=== PATIENT | male | born 1940 | race Caucasian/White ===

== ENCOUNTER → 2019-05-12 12:13 | Outpatient (CLI) | payer MEDICARE, MEDICAID, SELFPAY ==
--- NOTE | 2019-05-12 12:33 | XR_ITS ---
PROCEDURE: XR CHEST 2V CLINICAL HISTORY: CHRONIC DIASTOLIC HEART FAILURE, DYSPNEA COMPARISON: CXR CHEST(2 VIEWS-NOT PORTABLE) from 07/20/2014 CXR CHEST(2 VIEWS-NOT PORTABLE) from 10/25/2014 FINDINGS: Unremarkable cardiovascular structures. Bipolar pacemaker is present from left subclavian approach. Calcified granuloma is present in the right lung base laterally. Chronic pleural changes are present in the left lung base. The lungs are clear without infiltrates, suspicious nodules, or pleural effusions. Degenerative change thoracic spine IMPRESSION: No change with no acute finding Dictated by: Alejandro Patiño MD 05/12/2019 12:57 Electronically signed by Alejandro Patiño MD in [place] 05/12/2019 12:57
[2019-05-12 13:39] LABS: Basophils % 0.6 % (0.1-2.0); Eosinophils # 0.2 K/mm3 (0.0-0.4); Eosinophils % 3.9 % (0.1-12.0); Hematocrit 33.6 % (42.0-52.0); Hemoglobin 9.7 g/dL (14.1-18.0); Lymphocytes # 1.6 K/mm3 (0.7-4.5); Lymphocytes % 38.8 % (10-50); Mean Corpuscular HGB Conc 28.8 g/dL (31.8-35.4); Mean Corpuscular Hemoglobin 26.3 pg (27.0-31.2); Mean Corpuscular Volume 91.3 fl (80-94); Mean Platelet Volume 7.2 fl (7.4-10.4); Monocytes # 0.2 K/mm3 (0.1-1.0); Monocytes % 5.8 % (1.7-9.3); Neutrophils # 2.1 K/mm3 (1.8-7.8); Platelet Count 201 K/mm3 (142-424); Red Blood Count 3.68 M/mm3 (4.60-6.20); Red Cell Distribution Width 15.9 % (11.5-17.5)
[2019-05-12 13:55] LABS: Alanine Aminotransferase 5 U/L (12-78); Albumin Level 3.9 gm/dL (3.4-5.0); Albumin/Globulin Ratio 1.7 (1.1-1.8); Alkaline Phosphatase 55 U/L (46-116); Anion Gap 13.1 mEq/L (5-15); Aspartate Amino Transferase 8 U/L (15-37); Bilirubin,Total 0.4 mg/dL (0.2-1.0); Blood Urea Nitrogen 27 mg/dL (7-18); Calcium 8.6 mg/dL (8.5-10.1); Carbon Dioxide 30 mmol/L (21.0-32.0); Chloride 106 mmol/L (98-107); Creatinine,Serum 1.31 mg/dL (0.70-1.30); Estimated Glomerular Filt Rate 53 ml/min (>60); GFR (African American) 64 ML/MIN (>60); Globulin 2.3 gm/dl (1.3-3.2); Glucose 96 mg/dL (74-106); Potassium 4.1 mmoL/L (3.5-5.1); Sodium 145 mmol/L (136-145); Total Protein,Serum 6.2 gm/dL (6.4-8.2)
== END ==
PROVIDERS: PCP Internal Medicine Adolescent Medicine; Visit Provider Internal Medicine Adolescent Medicine
DX: I50.32 Chronic diastolic (congestive) heart failure (principal); R06.00 Dyspnea, unspecified
CPT/HCPCS: 36415; 71046; 80053; 83880; 85025

== ENCOUNTER → 2019-05-25 09:00 | Outpatient (CLI) | payer MEDICARE, MEDICAID, SELFPAY ==
[2019-05-25 14:48] LABS: Anion Gap 11.8 mEq/L (5-15); Blood Urea Nitrogen 26 mg/dL (7-18); Carbon Dioxide 29 mmol/L (21.0-32.0); Chloride 106 mmol/L (98-107); Creatinine,Serum 1.56 mg/dL (0.70-1.30); Estimated Glomerular Filt Rate 43 ml/min (>60); GFR (African American) 52 ML/MIN (>60); Glucose 124 mg/dL (74-106); Potassium 3.8 mmoL/L (3.5-5.1); Sodium 143 mmol/L (136-145)
== END ==
PROVIDERS: PCP Internal Medicine Adolescent Medicine; Visit Provider Internal Medicine Adolescent Medicine
DX: E78.5 Hyperlipidemia, unspecified (principal); E11.9 Type 2 diabetes mellitus without complications; I63.50 Cerebral infarction due to unspecified occlusion or stenosis of unspecified cerebral artery
CPT/HCPCS: 36415; 80048

== ENCOUNTER → 2019-06-29 08:58 | Outpatient (CLI) | payer MEDICARE, MEDICAID, SELFPAY ==
[2019-06-29 13:58] LABS: Anion Gap 11.2 mEq/L (5-15); Blood Urea Nitrogen 34 mg/dL (7-18); Calcium 8.8 mg/dL (8.5-10.1); Carbon Dioxide 28 mmol/L (21.0-32.0); Chloride 108 mmol/L (98-107); Estimated Glomerular Filt Rate 34 ml/min (>60); GFR (African American) 42 ML/MIN (>60); Glucose 120 mg/dL (74-106); Potassium 4.2 mmoL/L (3.5-5.1); Sodium 143 mmol/L (136-145)
== END ==
PROVIDERS: PCP Internal Medicine Adolescent Medicine; Visit Provider Internal Medicine Adolescent Medicine
DX: I50.32 Chronic diastolic (congestive) heart failure (principal)
CPT/HCPCS: 36415; 80048

== ENCOUNTER → 2019-07-13 09:16 | Outpatient (CLI) | payer MEDICARE, MEDICAID, SELFPAY ==
[2019-07-13 14:17] LABS: Anion Gap 16.2 mEq/L (5-15); Blood Urea Nitrogen 35 mg/dL (7-18); Calcium 8.8 mg/dL (8.5-10.1); Carbon Dioxide 26 mmol/L (21.0-32.0); Chloride 106 mmol/L (98-107); Creatinine,Serum 1.82 mg/dL (0.70-1.30); Estimated Glomerular Filt Rate 36 ml/min (>60); GFR (African American) 44 ML/MIN (>60); Glucose 126 mg/dL (74-106); Potassium 5.2 mmoL/L (3.5-5.1); Sodium 143 mmol/L (136-145)
== END ==
PROVIDERS: PCP Internal Medicine Adolescent Medicine; Visit Provider Internal Medicine Adolescent Medicine
DX: I50.32 Chronic diastolic (congestive) heart failure (principal)
CPT/HCPCS: 36415; 80048

== ENCOUNTER → 2019-08-25 13:47 | Outpatient (CLI) | payer MEDICARE, MEDICAID, SELFPAY ==
--- NOTE | 2019-08-25 13:53 | XR_ITS ---
PROCEDURE: XR FEMUR LT 2V CLINICAL INDICATION: LT HIP PAIN Prior dislocations COMPARISON: No exams were available for comparison FINDINGS: No fracture or dislocation. No lytic or blastic change. There is normal mineralization. There is mild osteoarthritis at the hip joint and the patellofemoral and medial compartment joint space at the knee. Chondrocalcinosis is seen at medial and lateral compartment joint spaces. Other findings:None. IMPRESSION: No acute findings. Osteoarthritis. Dictated by: Eber Villalobos 08/25/2019 15:20 Electronically signed by Eber Villalobos in [place] 08/25/2019 15:20
--- NOTE | 2019-08-25 13:53 | XR_ITS ---
PROCEDURE: XR HIP LT 2-3V W/PELVIS CLINICAL INDICATION: LT HIP PAIN COMPARISON: No exams were available for comparison FINDINGS: There is no acute fracture or dislocation. Mild osteoarthritis is seen at both hip joint spaces. There is sclerosis of both sacroiliac joints without definite ankylosis. Sacroiliitis is suspected. A nonspecific 9 millimeter sclerotic focus is seen at the left symphysis pubis. A benign bone island is favored over a solitary sclerotic metastasis. Degenerative disc disease is noted L4-5 and L5-S1. IMPRESSION: Multiple degenerative findings with no acute bone pathology. Dictated by: Eber Villalobos 08/25/2019 15:23 Electronically signed by Eber Villalobos in [place] 08/25/2019 15:23
== END ==
PROVIDERS: PCP Internal Medicine Adolescent Medicine; Visit Provider Internal Medicine Adolescent Medicine
DX: M25.552 Pain in left hip (principal)
CPT/HCPCS: 73502; 73552

== ENCOUNTER → 2019-12-01 10:09 | Outpatient (CLI) | payer MEDICARE, MEDICAID, SELFPAY ==
[2019-12-01 14:21] LABS: Anion Gap 10.2 mEq/L (5-15); Blood Urea Nitrogen 30 mg/dl (9-20); Carbon Dioxide 30 mmol/L (22.0-30.0); Chloride 103 mmol/L (98-107); Estimated Glomerular Filt Rate 45 ml/min (>60); GFR (African American) 55 ML/MIN (>60); Glucose 97 mg/dl (74-100); Potassium 4.2 mmoL/L (3.5-5.1); Sodium 139 mmol/L (136-145)
[2019-12-01 14:26] LABS: Hemoglobin A1C 5.7 % (4.0-6.0)
== END ==
PROVIDERS: Visit Provider Internal Medicine Adolescent Medicine
DX: N18.3 Chronic kidney disease, stage 3 (moderate) (principal); E11.9 Type 2 diabetes mellitus without complications; Z79.84 Long term (current) use of oral hypoglycemic drugs
CPT/HCPCS: 36415; 80048; 83036

== ENCOUNTER → 2020-02-12 10:52 | Outpatient (CLI) | payer MEDICARE, MEDICAID, SELFPAY ==
--- NOTE | 2020-02-12 | CA_ITS ---
APPROVED REPORT EXAM: Comprehensive 2D, Doppler, and color-flow Echocardiogram Check Processing Clerk: Marge Thacker CRT Ht: 6 ft 0 in Wt: 260lbs BSA: 2.38 BP: 125/67 mmHg Indications: COPD, Diabetes, Palpitations, Hyperlipidemia, GERD, PACER 2D Dimensions LVOT 2.07 cm (M/F) 1.5-2.5 M-Mode Dimensions RVDd 2.88 cm (0.9-2.6) LVDd 5.80 cm (3.5-5.7) LVDs 4.10 cm (3.5-5.7) IVSd 1.44 cm (0.6-1.1) PWd 0.80 cm (0.6-1.1) EF (Teich) 55.50% FS 29.30% EDV (Teich) 166.60 mL ESV (Teich) 74.20 mL LV Diastology E/A Ratio 0.75 Mitral Valve MV A Velocity 108.00 (40-130 cm/s) Left Ventricle Left atrium is moderately enlarged, left ventricle is normal size, mild concentric left ventricular hypertrophy, visually estimated ejection fraction 50% with no regional wall motion abnormality. Grade 1 diastolic dysfunction seen with tissue Doppler evidence of raise left atrial pressure. Right Ventricle Right atrium is moderately enlarged, right ventricle is mildly dilated with normal contractility, there is a pacemaker lead seen the right ventricle. Aortic Valve Aortic valve is thickened and calcified leaflet chordae display good mobility, there is no aortic stenosis or aortic insufficiency. Mitral Valve Mitral valve has mitral annular calcification, leaflets are minimally thickened, there is no mitral stenosis, there is mitral regurgitation present which is likely in moderate range. Tricuspid Valve Tricuspid valve is grossly normal, there is mild tricuspid regurgitation, Pulmonic Valve Pulmonic valve is minimally thickened and fibrosed. There is mild pulmonic insufficiency. Great Vessels Aortic root is normal size. Pericardium Trivial pericardial effusion noted. Conclusion 1. Moderate biatrial alignment, normal left ventricular size, mild concentric left ventricular hypertrophy, visually estimated ejection fraction 50% with no regional wall motion abnormality, grade 1 diastolic dysfunction seen without tissue Doppler evidence of raise left atrial pressure. 2. Moderate mitral and mild tricuspid regurgitation. 3. Trivial pericardial effusion noted Electronically signed by : Jaspal Rowan, 02/12/2020 13:30:55
== END ==
PROVIDERS: PCP Internal Medicine Adolescent Medicine; Visit Provider Internal Medicine Adolescent Medicine
DX: I50.32 Chronic diastolic (congestive) heart failure (principal)
CPT/HCPCS: 93306

== ENCOUNTER → 2020-06-07 11:17 | Outpatient (CLI) | payer MEDICARE, MEDICAID, SELFPAY ==
--- NOTE | 2020-06-07 11:22 | XR_ITS ---
PROCEDURE: XR HIP LT 2-3V W/PELVIS CLINICAL INDICATION: left hip pain COMPARISON: CR XR HIP LT 2-3V W/PELVIS from 08/25/2019 FINDINGS: No fracture or dislocation is evident. There is asymmetrical joint space narrowing of both hip joints. There is disc space narrowing with marginal osteophytic spurring at the L4-5 level. The SI joints and symphysis pubis appear normal. IMPRESSION: Mild osteoarthritic change of both hips along with moderate degenerate disc disease L4-5 Dictated by: Dr. Doron Oneal MD 06/07/2020 13:05 Dr. Doron Oneal MD in [place] 06/07/2020 13:05
== END ==
PROVIDERS: PCP Internal Medicine Adolescent Medicine; Visit Provider Orthopaedic Surgery
DX: M16.12 Unilateral primary osteoarthritis, left hip (principal)
CPT/HCPCS: 73502

== ENCOUNTER → 2021-02-23 08:57 | Outpatient (CLI) | payer MEDICARE, MEDICAID, SELFPAY ==
[2021-02-23 14:08] LABS: Chloride 104 mmol/L (98-107); Sodium 144 mmol/L (136-145)
[2021-02-23 14:11] LABS: Blood Urea Nitrogen 32 mg/dl (9-20); Estimated Glomerular Filt Rate 42 ml/min (>60); GFR (African American) 51 ML/MIN (>60)
[2021-02-23 14:12] LABS: Calcium 8.7 mg/dl (8.4-10.2); Carbon Dioxide 31 mmol/L (22.0-30.0); Glucose 112 mg/dl (74-100)
== END ==
PROVIDERS: Visit Provider Internal Medicine Adolescent Medicine
DX: I50.32 Chronic diastolic (congestive) heart failure (principal)
CPT/HCPCS: 36415; 80048

== ENCOUNTER → 2021-08-17 10:14 | Outpatient (CLI) | payer MEDICARE, MEDICAID, SELFPAY ==
[2021-08-17 10:50] LABS: Basophils % 0.8 % (0.1-2.0); Eosinophils # 0.1 K/mm3 (0.0-0.4); Eosinophils % 1.6 % (0.1-12.0); Hematocrit 30.5 % (42.0-52.0); Hemoglobin 9.4 g/dL (14.1-18.0); Lymphocytes % 45.5 % (10-50); Mean Corpuscular HGB Conc 30.9 g/dL (31.8-35.4); Mean Corpuscular Hemoglobin 27.3 pg (27.0-31.2); Mean Corpuscular Volume 88.6 fl (80-94); Mean Platelet Volume 8.3 fl (7.4-10.4); Monocytes # 0.2 K/mm3 (0.1-1.0); Monocytes % 4.3 % (1.7-9.3); Neutrophils # 2.1 K/mm3 (1.8-7.8); Neutrophils % 47.8 % (37.0-80.0); Platelet Count 200 K/mm3 (142-424); Red Blood Count 3.45 M/mm3 (4.60-6.20); Red Cell Distribution Width 16.1 % (11.5-17.5); White Blood Count 4.4 K/mm3 (4.8-10.8)
[2021-08-17 11:06] LABS: Hemoglobin A1C 5.9 % (4.0-6.0)
[2021-08-17 11:18] LABS: Alanine Aminotransferase 9 U/L (12-78); Albumin Level 4.3 g/dl (3.5-5.0); Albumin/Globulin Ratio 2.3 (1.1-1.8); Alkaline Phosphatase 45 U/L (38-126); Anion Gap 9.7 mEq/L (5-15); Aspartate Amino Transferase 23 U/L (17-59); Bilirubin,Total 0.4 mg/dl (0.2-1.3); Blood Urea Nitrogen 41 mg/dl (9-20); Calcium 9.3 mg/dl (8.4-10.2); Carbon Dioxide 34 mmol/L (22.0-30.0); Chloride 102 mmol/L (98-107); Chol/HDL Ratio 2.8 (1-3.5); Cholesterol 109 mg/dl (140-200); Estimated Glomerular Filt Rate 29 ml/min (>60); GFR (African American) 35 ML/MIN (>60); Globulin 1.9 g/dL (1.3-3.2); Glucose 101 mg/dl (74-100); HDL Cholesterol 39 mg/dl (40-60); Potassium 4.7 mmoL/L (3.5-5.1); Sodium 141 mmol/L (136-145); Total Protein,Serum 6.2 g/dl (6.3-8.2); Triglycerides 75 mg/dl (30-150); VLDL Cholesterol 15 mg/dL (0-40)
[2021-08-17 11:29] LABS: Direct LDL Cholesterol 55.07 mg/dL (100-129)
[2021-08-17 11:34] LABS: Amphetamine/Metha Screen,Urine Negative ng/ml (<1000)
[2021-08-17 11:35] LABS: Barbiturates Screen,Urine Negative ng/ml (<200); Benzodiazepines Screen,Urine Negative ng/ml (<200)
[2021-08-17 11:36] LABS: Cannabinoid Screen,Urine Negative ng/ml (<50); Cocaine Screen,Urine Negative ng/ml (<300)
[2021-08-17 11:37] LABS: Methadone Screen,Urine Negative ng/ml (<300)
[2021-08-17 11:38] LABS: Opiate Screen,Urine Positive ng/ml (<300); Phencyclidine Screen,Urine Negative ng/ml (<25)
[2021-08-17 12:08] LABS: Vitamin B12 363 pg/mL (239-931)
== END ==
PROVIDERS: Visit Provider Internal Medicine Adolescent Medicine
DX: E11.42 Type 2 diabetes mellitus with diabetic polyneuropathy (principal); M17.0 Bilateral primary osteoarthritis of knee; Z79.84 Long term (current) use of oral hypoglycemic drugs
CPT/HCPCS: 36415; 80053; 80061; 80305; 82607; 83036; 85025

== ENCOUNTER → 2022-02-14 10:09 | Outpatient (CLI) | payer MEDICARE, MEDICAID, SELFPAY ==
[2022-02-14 10:18] LABS: Microscopic, Urine URINE MICROSCOPIC (MICROSCOPIC)
[2022-02-14 10:42] LABS: Appearance,Urine CLEAR (Clear); Bilirubin,Urine Negative (Negative); Blood, Urine Negative (Negative); Color,Urine YELLOW (Yellow); Glucose,Urine (UA) Negative (Negative); Ketones,Urine Negative (Negative); Leukocyte Esterase,Urine Negative (Negative); Nitrate,Urine Negative (Negative); PH,Urine 5.5 (5.0-8.5); Protein,Urine Negative (Negative); Urobilinogen,Urine 0.2 EU/dl (0.2)
[2022-02-14 10:43] LABS: Basophils % 0.6 % (0.1-2.0); Eosinophils # 0.1 K/mm3 (0.0-0.4); Eosinophils % 1.4 % (0.1-12.0); Hemoglobin 8.7 g/dL (14.1-18.0); Lymphocytes # 2.3 K/mm3 (0.7-4.5); Lymphocytes % 47.3 % (10-50); Mean Corpuscular Hemoglobin 26.2 pg (27.0-31.2); Mean Corpuscular Volume 87.2 fl (80-94); Mean Platelet Volume 8.1 fl (7.4-10.4); Monocytes # 0.2 K/mm3 (0.1-1.0); Monocytes % 4.7 % (1.7-9.3); Neutrophils # 2.3 K/mm3 (1.8-7.8); Neutrophils % 46.1 % (37.0-80.0); Platelet Count 250 K/mm3 (142-424); Red Blood Count 3.32 M/mm3 (4.60-6.20); Red Cell Distribution Width 16.1 % (11.5-17.5); White Blood Count 4.9 K/mm3 (4.8-10.8)
[2022-02-14 10:51] LABS: Creatinine,Urine Random 92 mg/dL (Not Estab.)
[2022-02-14 11:04] LABS: Albumin Level 4.1 g/dl (3.5-5.0); Anion Gap 12.5 mEq/L (5-15); Blood Urea Nitrogen 43 mg/dl (9-20); Calcium 9.1 mg/dl (8.4-10.2); Carbon Dioxide 26 mmol/L (22.0-30.0); Chloride 109 mmol/L (98-107); Estimated Glomerular Filt Rate 27 ml/min (>60); GFR (African American) 33 ML/MIN (>60); Glucose 95 mg/dl (74-100); Phosphorous 4.1 mg/dl (2.5-4.5); Potassium 4.5 mmoL/L (3.5-5.1); Sodium 143 mmol/L (136-145)
[2022-02-14 11:16] LABS: Intact Parathyroid Hormone 76.6 pg/mL (7.5-53.5)
[2022-02-14 11:20] LABS: 25-OH Vitamin D, Total 64.5 ng/mL (30-100)
== END ==
PROVIDERS: Internal Medicine Nephrology; PCP Internal Medicine Adolescent Medicine
DX: N18.4 Chronic kidney disease, stage 4 (severe) (principal); E55.9 Vitamin D deficiency, unspecified
CPT/HCPCS: 36415; 80069; 81001; 82306; 82570; 83970; 84155; 85025

== ENCOUNTER → 2022-02-19 10:45 | Outpatient (POV) | payer MEDICARE, MEDICAID, SELFPAY | PROVIDERS: Visit Provider Internal Medicine Nephrology | DX: Z00.00 Encounter for general adult medical examination without abnormal findings (principal) ==

== ENCOUNTER 2022-03-24 19:29 | Emergency (ER) | payer MEDICARE, MEDICAID, SELFPAY ==
[2022-03-24 20:15] VITALS: BP 158/81; PULSE 68; RESP 19; TEMP 37.1; O2SAT 96; BMI 36.7
--- NOTE | 2022-03-24 20:42 | HMH.EDUTC ---
[facility] [place] Disposition Clinical Impression: Exposure to COVID-19 virus, Upper respiratory infection, viral Disposition: Home, Self-Care Condition on Discharge: Good Instructions: DI for Viral Upper Respiratory Infection -- Adult, DI for COVID-19 (Suspected or Confirmed ) Additional Instructions: covid swab was sent to lab, call tomorrow for results. self isolate until test results are known to be negative No sign of a bacterial infection. Likely viral. Viruses can take 7-14 days to run their course. Nasal saline and bulb syringe or nose Evelin to remove nasal drainage to help with nasal congestion. Hard to eat, drink, sleep with nasal congestion so important to keep this cleaned out. Monitor temp. Tylenol or Motrin as needed for pain or fever Encourage fluids, water, Gatorade, Powerade, Pedialyte if /toddler/child Warm salt water gargles Warm fluids Sore throat lozenges Sleep elevated Humidifier/vaporizer Follow-up immediately for new or worsening symptoms or no noticeable improvement over the next 48-72 hours. Referrals: Melvin Navas MD [Primary Care Provider] - Time of Disposition: 20:44 Medical Decision Making - Sina Inquiry Pt receiving controlled substance: No Vital Signs: 03/24/22 20:15 Temperature 98.8 F Temperature Source Oral Pulse Rate [Right Brachial] 68 Respiratory Rate 19 Blood Pressure [Right Arm] 158/81 H Blood Pressure Mean [Right Arm] 106 Blood Pressure Source [Right Arm] Automatic Cuff Blood Pressure Position [Right Arm] Sitting 02 Sat by Pulse Oximetry 96 Oxygen Delivery Method Room Air Orders (Tests/Meds): ORDERS Category Date Time Status Covid-19 Nasal PCR ([facility]) Routine Lab 03/24/22 20:02 Received [facility] [place] HPI - General Chief complaint: Urgent [facility] Stated complaint: exposed covid,runny nose cough Time Seen by Provider: 03/24/22 20:42 Mode of Arrival: Ambulatory Source of Information: Patient Limitations: No Limitations Description of Symptoms (Recalled from Triage Doc. by RN): PATIENT C/O BODY ACHES, COUGH AND RUNNY NOSE. RECENTLY EXPOSED TO COVID HEENT Symptoms (Recalled from RN notes): Yes Resp Symptoms (Recalled from RN notes): Yes Skin Symptoms (Recalled from RN notes): No MS Symptoms (Recalled from RN notes): No Functional Status (Recalled from RN notes): WNL - History of Present Illness Provider Complaint: 81 yr old male presnets for cough,nasal drainage and congestion. has been exposed to covid - Related Data Home Medications Medication Instructions Recorded Confirmed aspirin 81 mg tablet,delayed 81 mg PO DAILY 09/09/19 06/07/20 release buspirone 15 mg tablet 15 mg PO BID 09/09/19 06/07/20 calcium carbonate 600 mg-vitamin cap PO 09/09/19 06/07/20 D3 5 mcg (200 unit) capsule doxazosin 2 mg tablet 2 mg PO DAILY 09/09/19 06/07/20 fluticasone 250 mcg-salmeterol 50 1 inh INHALATION BID 09/09/19 06/07/20 mcg/dose blistr powdr for inhalation furosemide 40 mg tablet 40 mg PO DAILY 09/09/19 06/07/20 gabapentin 100 mg capsule 100 mg PO DAILY 09/09/19 06/07/20 hydrocodone 7.5 mg-acetaminophen 1 tab PO Q6H PRN 09/09/19 06/07/20 325 mg tablet lancets See Rx Instructions .ROUTE 09/09/19 06/07/20 .MEDSUPPLY #50 each lisinopril 40 mg tablet 40 mg PO DAILY 09/09/19 06/07/20 lovastatin 40 mg tablet 40 mg PO DAILY 09/09/19 06/07/20 metformin 1,000 mg tablet 1,000 mg PO BID 09/09/19 06/07/20 metoprolol tartrate 25 mg tablet 25 mg PO DAILY 09/09/19 06/07/20 pantoprazole 20 mg tablet,delayed 20 mg PO DAILY 09/09/19 06/07/20 release polyethylene glycol 3350 17 17 g PO DAILY 09/09/19 06/07/20 gram/dose oral powder ranitidine HCl 150 mg tablet 150 mg PO DAILY 09/09/19 06/07/20 rivaroxaban 20 mg tablet 20 mg PO DAILY 09/09/19 06/07/20 verapamil 240 mg 24 hr 240 mg PO DAILY 09/09/19 06/07/20 capsule,extended release bisoprolol fumarate 5 mg tablet 5 mg PO DAILY 06/07/20 06/07/20 Allergies Allergy/AdvReac Type Severity Reaction S
[2022-03-24 20:46] VITALS: BP 158/81; PULSE 68; RESP 19; TEMP 37.1; O2SAT 96
== END 2022-03-24 20:52 | disposition home or self-care (01) ==
PROVIDERS: Emergency Provider Nurse Practitioner Family; PCP Internal Medicine Adolescent Medicine
DX: R09.89 Other specified symptoms and signs involving the circulatory and respiratory systems (principal); R05.9 Cough, unspecified; U07.1 COVID-19
CPT/HCPCS: 99212; C9803; G0463; U0003; U0005

== ENCOUNTER → 2022-04-10 12:36 | Outpatient (CLI) | payer MEDICARE, MEDICAID, SELFPAY ==
[2022-04-10 14:04] LABS: Basophils % 0.5 % (0.1-2.0); Eosinophils # 0.1 K/mm3 (0.0-0.4); Eosinophils % 1.3 % (0.1-12.0); Hematocrit 27.3 % (42.0-52.0); Lymphocytes # 2.3 K/mm3 (0.7-4.5); Lymphocytes % 52.3 % (10-50); Mean Corpuscular HGB Conc 29.3 g/dL (31.8-35.4); Mean Corpuscular Hemoglobin 24.6 pg (27.0-31.2); Mean Corpuscular Volume 83.8 fl (80-94); Mean Platelet Volume 7.7 fl (7.4-10.4); Monocytes # 0.2 K/mm3 (0.1-1.0); Monocytes % 4.6 % (1.7-9.3); Neutrophils # 1.8 K/mm3 (1.8-7.8); Neutrophils % 41.3 % (37.0-80.0); Platelet Count 231 K/mm3 (142-424); Red Blood Count 3.26 M/mm3 (4.60-6.20); Red Cell Distribution Width 16.8 % (11.5-17.5); White Blood Count 4.4 K/mm3 (4.8-10.8)
[2022-04-10 14:08] LABS: MANUAL DIFFERENTIAL MANUAL DIFFERENTIAL (MANUAL DIFF)
[2022-04-10 14:21] LABS: Iron 18 ug/dL (49-181)
[2022-04-10 14:55] LABS: Total Iron Binding Capacity 278 ug/dL (261-462)
[2022-04-10 14:57] LABS: Ferritin 24.2 ng/ml (17.9-464)
[2022-04-10 16:26] LABS: Eosinophils % 2 % (0-3); Lymphocytes % 49 % (10-50); Monocytes % 4 % (2-9); Neutrophils % 43 % (42-76); Total Cells Counted 100
[2022-04-10 16:27] LABS: Hypochromasia 2+; Ovalocytes 1+; Platelet Estimate Normal
[2022-04-10 17:14] LABS: Albumin Level 3.9 g/dl (3.5-5.0); Chloride 108 mmol/L (98-107); Potassium 4.8 mmoL/L (3.5-5.1); Sodium 142 mmol/L (136-145)
[2022-04-10 17:17] LABS: Anion Gap 10.8 mEq/L (5-15); Blood Urea Nitrogen 32 mg/dl (9-20); Carbon Dioxide 28 mmol/L (22.0-30.0); Estimated Glomerular Filt Rate 29 ml/min (>60); GFR (African American) 35 ML/MIN (>60); Phosphorous 3.7 mg/dl (2.5-4.5)
[2022-04-10 17:18] LABS: Glucose 124 mg/dl (74-100)
[2022-04-10 17:49] LABS: Thyroid Stimulating Hormone 1.39 uIU/mL (0.465-4.68)
[2022-04-12 18:08] LABS: Albumin 3.7 g/dL (2.9-4.4); Alpha-1-Globulin 0.2 g/dL (0.0-0.4); Alpha-2-Globulin 0.7 g/dL (0.4-1.0); Gamma Globulin 0.5 g/dL (0.4-1.8); Protein, Total 5.9 g/dL (6.0-8.5)
[2022-04-18 10:02] LABS: Free Kappa Lt Chains 24.4; Free Lambda Lt Chains 17.8
== END ==
PROVIDERS: PCP Internal Medicine Adolescent Medicine; Visit Provider Internal Medicine Nephrology
DX: N18.4 Chronic kidney disease, stage 4 (severe) (principal); D64.9 Anemia, unspecified; R80.9 Proteinuria, unspecified; N25.0 Renal osteodystrophy; I10 Essential (primary) hypertension
CPT/HCPCS: 36415; 80069; 82728; 83540; 83550; 83883; 84155; 84165; 84443; 85007; 85025

== ENCOUNTER → 2022-04-23 10:19 | Outpatient (POV) | payer MEDICARE, MEDICAID, SELFPAY | PROVIDERS: Visit Provider Internal Medicine Nephrology | DX: Z00.00 Encounter for general adult medical examination without abnormal findings (principal) ==

== ENCOUNTER → 2022-04-23 11:14 | Outpatient (CLI) | payer MEDICARE, MEDICAID, SELFPAY ==
--- NOTE | 2022-04-23 11:23 | XR_ITS ---
FINAL REPORT CLINICAL HISTORY: DYSPNEA COMPARISON: 05/12/2019 FINDINGS: 2 views of the chest were obtained . The heart is normal in size. In left-sided pacemaker is in place. The mediastinum is within normal limits. The lungs are clear. There is no pneumothorax. Osseous structures are unremarkable. IMPRESSION: No acute cardiopulmonary process. Reviewed, Interpreted and Dictated by Wesly Gutiérrez MD Transcribed by Deysi Major Authenticated and [facility]
== END ==
PROVIDERS: PCP Internal Medicine Adolescent Medicine; Visit Provider Internal Medicine Nephrology
DX: R06.00 Dyspnea, unspecified (principal)
CPT/HCPCS: 71046

== ENCOUNTER 2022-05-01 10:23 | Emergency (ER) | payer MEDICARE, MEDICAID, SELFPAY ==
[2022-05-01] VITALS (7 sets, daily range): BP systolic 122–147; BP diastolic 48–72; PULSE 60–67; RESP 16–20; TEMP 36.6; O2SAT 94–98; BMI 33.6
--- NOTE | 2022-05-01 10:43 | CT_ITS ---
FINAL REPORT TECHNIQUE: Noncontrast CT exam of the abdomen and pelvis. This study was performed with techniques to keep radiation doses as low as reasonably achievable (ALARA). Individualized dose reduction techniques using automated exposure control or adjustment of mA and/or kV according to the patient''s size were employed. CLINICAL HISTORY: flank pain, urinary retention FINDINGS: CT ABDOMEN & PELVIS W/O CONTRAST Abdomen: Lung bases are clear. The pancreas and adrenal glands have a normal CT appearance in their limited unenhanced state. There is cirrhotic appearance of the liver with moderate splenomegaly. There is moderate bilateral hydronephrosis and hydroureter. There is renal atrophy. There are multiple renal lesions some of which do not fulfill criteria of simple cysts. There is fecal impaction. Pelvis: The urinary bladder is severely distended and the ureters are dilated to the level of the bladder. No distal ureteral stones are seen. The prostate is unremarkable. The appendix is not visualized. IMPRESSION: Moderate bilateral hydronephrosis and hydroureter with obstruction likely related to severely distended bladder. Cirrhosis with evidence of portal hypertension. Reviewed, Interpreted and Dictated by Adelaida Solorzano MD Transcribed by Carolyn Gautam Authenticated and [facility]
--- NOTE | 2022-05-01 10:43 | HMH.EDGENADL ---
Discharge Plan Disposition Patient Disposition: Home, Self-Care Condition: Good Prescriptions Prescriptions: New cephalexin 500 mg capsule 500 mg PO BID 7 Days Qty: 14 0RF No Action aspirin [Adult Aspirin Regimen] 81 mg tablet,delayed release (DR/EC) 81 mg PO DAILY polyethylene glycol 3350 [Miralax] 17 gram/dose powder 17 g PO DAILY ranitidine HCl 150 mg tablet 150 mg PO DAILY Calcium 600 + D(3) 600 mg calcium- 200 unit capsule PO fluticasone propion-salmeterol [Advair Diskus] 250-50 mcg/dose blister with device 1 inh INHALATION BID (DME) lancets [Accu-Chek Softclix Lancets] Misc See Rx Instructions .ROUTE .MEDSUPPLY Qty: 50 Rx Instructions: As directed metformin 1,000 mg tablet 1,000 mg PO BID furosemide 40 mg tablet 40 mg PO DAILY lovastatin 40 mg tablet 40 mg PO DAILY pantoprazole 20 mg tablet,delayed release (DR/EC) 20 mg PO DAILY metoprolol tartrate 25 mg tablet 25 mg PO DAILY doxazosin 2 mg tablet 2 mg PO DAILY Xarelto 20 mg tablet 20 mg PO DAILY Rx Instructions: must administer with evening meal buspirone 15 mg tablet 15 mg PO BID verapamil 240 mg capsule,ext rel. pellets 24 hr 240 mg PO DAILY lisinopril 40 mg tablet 40 mg PO DAILY hydrocodone-acetaminophen 7.5-325 mg tablet 1 tab PO Q6H PRN gabapentin 100 mg capsule 100 mg PO DAILY bisoprolol fumarate 5 mg tablet 5 mg PO DAILY Referrals Follow up/Referrals: Melvin Navas MD [Primary Care Provider] - See instructions Travis Matias MD [Staff Physician] - See instructions Clinical Impressions Clinical Impression: Acute UTI Instructions Patient Instructions: How to Care for Your Torres Catheter -- Male Discharge ED Provider: Anthony Rudd General Adult HPI General Chief complaint: PAIN Stated complaint: Trouble urinating with pain Time Seen by Provider: 05/01/22 10:44 Mode of Arrival: Ambulatory Source of Information: Patient Limitations: No Limitations Description of Symptoms (Recalled from ER Triage Doc. by RN): to ed per pvt car with c/o burning with urination, freg, urgency starting saturday. pt denies fever, chills, nausea, vomiting. History of Present Illness HPI narrative: This is a 81-year-old male presented to the emergency department with some increased urinary frequency and urgency. Patient is also had some burning with urination. This has been going on for the last 3 days. Patient states that he has had some suprapubic abdominal cramping as well. Denies any hematuria or discharge. No testicular pain. Is not having any nausea, vomiting or diarrhea. No fevers or chills. No headache or change in vision. No focal weakness. No chest pain or shortness of breath. Related Data Home Medications Medication Instructions Recorded Confirmed aspirin 81 mg tablet,delayed 81 mg PO DAILY 09/09/19 06/07/20 release (Adult Aspirin Regimen) buspirone 15 mg tablet 15 mg PO BID 09/09/19 06/07/20 calcium carbonate 600 mg-vitamin cap PO 09/09/19 06/07/20 D3 5 mcg (200 unit) capsule (Calcium 600 + D(3)) doxazosin 2 mg tablet 2 mg PO DAILY 09/09/19 06/07/20 fluticasone 250 mcg-salmeterol 50 1 inh inhalation BID 09/09/19 06/07/20 mcg/dose blistr powdr for inhalation (Advair Diskus) furosemide 40 mg tablet 40 mg PO DAILY 09/09/19 06/07/20 gabapentin 100 mg capsule 100 mg PO DAILY 09/09/19 06/07/20 hydrocodone 7.5 mg-acetaminophen 1 tab PO Q6H PRN 09/09/19 06/07/20 325 mg tablet lancets (Accu-Chek Softclix #50 ea 09/09/19 06/07/20 Lancets) lisinopril 40 mg tablet 40 mg PO DAILY 09/09/19 06/07/20 lovastatin 40 mg tablet 40 mg PO DAILY 09/09/19 06/07/20 metformin 1,000 mg tablet 1,000 mg PO BID 09/09/19 06/07/20 metoprolol tartrate 25 mg tablet 25 mg PO DAILY 09/09/19 06/07/20 pantoprazole 20 mg tablet,delayed 20 mg PO DAILY 09/09/19 06/07/20 release polyethylene glycol 33
[2022-05-01 11:01] LABS: Basophils % 0.4 % (0.1-2.0); Eosinophils % 0.3 % (0.1-12.0); Hematocrit 26.1 % (42.0-52.0); Hemoglobin 7.6 g/dL (14.1-18.0); Lymphocytes # 1.7 K/mm3 (0.7-4.5); Lymphocytes % 28.9 % (10-50); Mean Corpuscular HGB Conc 29.2 g/dL (31.8-35.4); Mean Corpuscular Hemoglobin 24.1 pg (27.0-31.2); Mean Corpuscular Volume 82.5 fl (80-94); Monocytes # 0.3 K/mm3 (0.1-1.0); Monocytes % 5.8 % (1.7-9.3); Neutrophils # 3.8 K/mm3 (1.8-7.8); Neutrophils % 64.6 % (37.0-80.0); Platelet Count 275 K/mm3 (142-424); Red Blood Count 3.17 M/mm3 (4.60-6.20); Red Cell Distribution Width 17.3 % (11.5-17.5); White Blood Count 5.8 K/mm3 (4.8-10.8)
[2022-05-01 11:14] LABS: Alanine Aminotransferase 11 U/L (12-78); Albumin Level 3.6 g/dl (3.5-5.0); Albumin/Globulin Ratio 1.5 (1.1-1.8); Alkaline Phosphatase 53 U/L (38-126); Anion Gap 14.7 mEq/L (5-15); Aspartate Amino Transferase 16 U/L (17-59); Blood Urea Nitrogen 46 mg/dl (9-20); Calcium 8.4 mg/dl (8.4-10.2); Carbon Dioxide 28 mmol/L (22.0-30.0); Chloride 104 mmol/L (98-107); Creatinine Clearance Estimated 34 mL/min (50-200); Estimated Glomerular Filt Rate 23 ml/min (>60); GFR (African American) 28 ML/MIN (>60); Globulin 2.4 g/dL (1.3-3.2); Glucose 104 mg/dl (74-100); Lipase 107 U/L (23-300); Potassium 4.7 mmoL/L (3.5-5.1); Sodium 142 mmol/L (136-145)
[2022-05-01 11:15] LABS: Microscopic, Urine URINE MICROSCOPIC (MICROSCOPIC)
[2022-05-01 11:16] LABS: Appearance,Urine CLEAR (Clear); Bilirubin,Urine Negative (Negative); Blood, Urine 3+ (Negative); Color,Urine YELLOW (Yellow); Glucose,Urine (UA) Negative (Negative); Ketones,Urine Negative (Negative); Leukocyte Esterase,Urine 2+ (Negative); Nitrate,Urine Negative (Negative); Protein,Urine 2+ (Negative); Specific Gravity, Urine >= 1.030 (1.005-1.030); Urobilinogen,Urine 0.2 EU/dl (0.2)
--- NOTE | 2022-05-01 11:22 | PC.NURSE ---
pt gone to radiology
[2022-05-01 11:27] LABS: Bilirubin,Total < 0.1 mg/dl (0.2-1.3)
--- NOTE | 2022-05-01 11:29 | PC.NURSE ---
BACK FROM CT
[2022-05-01 11:53] LABS: Bacteria,Urine 2+ /lpf; Squamous Epithelial Cell,Urine Occasional #/hpf (0-5)
--- NOTE | 2022-05-01 13:12 | PC.NURSE ---
pt and updated on plan of care
--- NOTE | 2022-05-01 14:10 | PC.NURSE ---
urine output after sepulveda placed 2400 cc, sepulveda leg bag attached to pt leg, some blood tinge urine noted upon DC home.
[2022-05-03 11:25] LABS: POC Glucose,Bedside 101 (70-110)
[2022-05-04 10:57] LABS: POC Glucose,Bedside 111 (70-110)
== END 2022-05-01 14:48 | disposition home or self-care (01) ==
PROVIDERS: Emergency Provider Emergency Medicine; PCP Internal Medicine Adolescent Medicine
DX: N39.0 Urinary tract infection, site not specified (principal)
CPT/HCPCS: 51702; 74176; 80053; 81001; 82962; 83690; 85025; 87086; 96365; 99284; J0696

== ENCOUNTER 2022-05-02 09:53 | Observation (INO) | payer MEDICARE, MEDICAID, SELFPAY ==
[2022-05-02] VITALS (18 sets, daily range): BP systolic 106–138; BP diastolic 56–82; PULSE 60–63; RESP 18; TEMP 36.5–36.6; O2SAT 97–100; BMI 33.6; BMI 32.3
--- NOTE | 2022-05-02 10:22 | PC.NURSE ---
ED MD AT BEDSIDE FOR EVALUATION
[2022-05-02 10:57] LABS: Coronavirus 19, PCR Not Detected (NotDetected); Influenza A, PCR Not Detected (NotDetected); Influenza B, PCR Not Detected (NotDetected)
--- NOTE | 2022-05-02 10:57 | PC.NURSE ---
flushed the leg cath that was placed yesterday, immediate return of bloody urine, 250 cc emptied from leg bag
--- NOTE | 2022-05-02 11:10 | HMH.EDGENADL ---
Discharge Plan Disposition Patient Disposition: Admitted As Inpatient Condition: Fair Chief Complaint: Urogenital-Male Prescriptions Prescriptions: No Action aspirin [Adult Aspirin Regimen] 81 mg tablet,delayed release (DR/EC) 81 mg PO DAILY polyethylene glycol 3350 [Miralax] 17 gram/dose powder 17 g PO DAILY ranitidine HCl 150 mg tablet 150 mg PO DAILY Calcium 600 + D(3) 600 mg calcium- 200 unit capsule PO fluticasone propion-salmeterol [Advair Diskus] 250-50 mcg/dose blister with device 1 inh INHALATION BID (DME) lancets [Accu-Chek Softclix Lancets] Misc See Rx Instructions .ROUTE .MEDSUPPLY Qty: 50 Rx Instructions: As directed metformin 1,000 mg tablet 1,000 mg PO BID furosemide 40 mg tablet 40 mg PO DAILY lovastatin 40 mg tablet 40 mg PO DAILY pantoprazole 20 mg tablet,delayed release (DR/EC) 20 mg PO DAILY metoprolol tartrate 25 mg tablet 25 mg PO DAILY doxazosin 2 mg tablet 2 mg PO DAILY Xarelto 20 mg tablet 20 mg PO DAILY Rx Instructions: must administer with evening meal buspirone 15 mg tablet 15 mg PO BID verapamil 240 mg capsule,ext rel. pellets 24 hr 240 mg PO DAILY lisinopril 40 mg tablet 40 mg PO DAILY hydrocodone-acetaminophen 7.5-325 mg tablet 1 tab PO Q6H PRN gabapentin 100 mg capsule 100 mg PO DAILY bisoprolol fumarate 5 mg tablet 5 mg PO DAILY cephalexin 500 mg capsule 500 mg PO BID 7 Days Qty: 14 0RF Referrals Follow up/Referrals: Melvin Navas MD [Primary Care Provider] - See instructions Clinical Impressions Clinical Impression: Acute UTI, Acute retention of urine, Acute kidney injury Instructions Patient Instructions: DI for Urinary Tract Infection (UTI), DI for Urinary Tract Infection in Children Discharge ED Provider: Anthony Rudd General Adult [facility] General Chief complaint: Urogenital-Male Stated complaint: can't urinate, if so blood in urine, referal Time Seen by Provider: 05/02/22 10:50 Mode of Arrival: Ambulatory Source of Information: Patient Limitations: No Limitations Description of Symptoms (Recalled from ER Triage Doc. by RN): c/o blood in urine after cath insertion yesterday by ER staff, states pt has not had anymore than 250 cc since 0600 this am History of Present Illness HPI narrative: This is a 81-year-old male presented to the emergency department with some dysuria. Patient was seen yesterday for similar symptoms. He had obstruction secondary to prostate swelling. Patient went home with a leg bag and was doing fine. They family is concerned because he has not drained anything for the last 4 hours. Patient does take blood thinner at home and was diagnosed with an infection. He has noticed some blood in the bag. Is complaining some suprapubic cramping. Denies any fevers or chills. No headache or change in vision. No focal weakness. No chest pain or shortness of breath. Related Data Home Medications Medication Instructions Recorded Confirmed aspirin 81 mg tablet,delayed 81 mg PO DAILY 09/09/19 06/07/20 release (Adult Aspirin Regimen) buspirone 15 mg tablet 15 mg PO BID 09/09/19 06/07/20 calcium carbonate 600 mg-vitamin cap PO 09/09/19 06/07/20 D3 5 mcg (200 unit) capsule (Calcium 600 + D(3)) doxazosin 2 mg tablet 2 mg PO DAILY 09/09/19 06/07/20 fluticasone 250 mcg-salmeterol 50 1 inh inhalation BID 09/09/19 06/07/20 mcg/dose blistr powdr for inhalation (Advair Diskus) furosemide 40 mg tablet 40 mg PO DAILY 09/09/19 06/07/20 gabapentin 100 mg capsule 100 mg PO DAILY 09/09/19 06/07/20 hydrocodone 7.5 mg-acetaminophen 1 tab PO Q6H PRN 09/09/19 06/07/20 325 mg tablet lancets (Accu-Chek Softclix #50 ea 09/09/19 06/07/20 Lancets) lisinopril 40 mg tablet 40 mg PO DAILY 09/09/19 06/07/20 lovastatin 40 mg tablet 40 mg PO DAILY 09/09/19 06/07/20 metformin 1,000 mg tablet 1,000 mg
--- NOTE | 2022-05-02 11:11 | PC.NURSE ---
Service doctor paged for
--- NOTE | 2022-05-02 12:55 | PC.NURSE ---
called to check on lab results, labs sent at 1055, no results at this time
[2022-05-02 13:13] LABS: Basophils % 0.5 % (0.1-2.0); Eosinophils % 0.6 % (0.1-12.0); Hematocrit 25.1 % (42.0-52.0); Hemoglobin 7.6 g/dL (14.1-18.0); Mean Corpuscular HGB Conc 30.1 g/dL (31.8-35.4); Mean Corpuscular Hemoglobin 24.3 pg (27.0-31.2); Mean Corpuscular Volume 80.6 fl (80-94); Mean Platelet Volume 7.3 fl (7.4-10.4); Monocytes # 0.3 K/mm3 (0.1-1.0); Monocytes % 5.1 % (1.7-9.3); Neutrophils # 3.4 K/mm3 (1.8-7.8); Neutrophils % 58.8 % (37.0-80.0); Platelet Count 256 K/mm3 (142-424); Red Blood Count 3.12 M/mm3 (4.60-6.20); Red Cell Distribution Width 17.2 % (11.5-17.5); White Blood Count 5.7 K/mm3 (4.8-10.8)
[2022-05-02 13:17] LABS: Chloride 105 mmol/L (98-107); Potassium 4.8 mmoL/L (3.5-5.1); Sodium 143 mmol/L (136-145)
[2022-05-02 13:19] LABS: Alanine Aminotransferase 8 U/L (12-78); Aspartate Amino Transferase 15 U/L (17-59); Blood Urea Nitrogen 45 mg/dl (9-20); Creatinine Clearance Estimated 34 mL/min (50-200); Estimated Glomerular Filt Rate 23 ml/min (>60); GFR (African American) 28 ML/MIN (>60)
[2022-05-02 13:20] LABS: Albumin Level 3.6 g/dl (3.5-5.0); Albumin/Globulin Ratio 1.6 (1.1-1.8); Alkaline Phosphatase 53 U/L (38-126); Anion Gap 13.8 mEq/L (5-15); Calcium 8.4 mg/dl (8.4-10.2); Carbon Dioxide 29 mmol/L (22.0-30.0); Globulin 2.2 g/dL (1.3-3.2); Glucose 95 mg/dl (74-100); Total Protein,Serum 5.8 g/dl (6.3-8.2)
[2022-05-02 13:23] LABS: Bilirubin,Total < 0.1 mg/dl (0.2-1.3)
--- NOTE | 2022-05-02 13:48 | PC.NURSE ---
called Dr Navas per the ER doctor. He was out and had to be paged
--- NOTE | 2022-05-02 16:27 | PC.NURSE ---
report called to norris anderson on second floor. states she will send staff down to transport pt.
--- NOTE | 2022-05-02 16:36 | PC.NURSE ---
400 cc of bloody urine emptied from sepulveda bag
--- NOTE | 2022-05-02 16:46 | PC.NURSE ---
pt arrived to floor via wheelchair @14:40
[2022-05-02 17:52] LABS: POC Glucose,Bedside 194 (70-110)
--- NOTE | 2022-05-02 18:28 | PC.NURSE ---
Pt is a poor historian and unable to provide accurate med list. Pt states his had the lsit and she isnt here now. Pt also states he does have sleep apnea, but requests no c pap at this time for hs and states he cant bring in at this time. Pt in NAD. CB in reach and VSS.
[2022-05-02 21:02] LABS: POC Glucose,Bedside 154 (70-110)
[2022-05-03] VITALS (13 sets, daily range): BP systolic 154–187; BP diastolic 74–95; PULSE 65–78; RESP 17–20; TEMP 35.9–36.8; O2SAT 95–98; BMI 32.1
--- NOTE | 2022-05-03 04:32 | PC.NURSE ---
NO ACUTE CHANGES SINCE PREVIOUS ASSESSMENT. PT IS ALERT AND ORIENTED X4. LUNG SOUNDS ARE CLEAR. REMAINS ON ROOM AIR AND IS TOLERATING WELL. MENDOZA REMAINS IN PLACE AN DIS DRAINING DARK RED URINE. PT HAS HAD 450 OUT SO FAR THIS SHIFT. ABD REMAINS SOFT AND NON-TENDER. PT HAS C/O PAIN ONCE THIS SHIFT AND WAS MEDICATED PER MAR WITH ADEQUATE RELIEF. NO C/O CP, SOB, OR N/V/D. VSS.
[2022-05-03 07:00] LABS: Basophils % 0.7 % (0.1-2.0); Eosinophils # 0.1 K/mm3 (0.0-0.4); Eosinophils % 1.2 % (0.1-12.0); Hematocrit 23.9 % (42.0-52.0); Hemoglobin 7.2 g/dL (14.1-18.0); Lymphocytes # 1.9 K/mm3 (0.7-4.5); Lymphocytes % 40.1 % (10-50); Mean Corpuscular HGB Conc 30.1 g/dL (31.8-35.4); Mean Corpuscular Hemoglobin 24.5 pg (27.0-31.2); Mean Corpuscular Volume 81.4 fl (80-94); Mean Platelet Volume 7.6 fl (7.4-10.4); Monocytes # 0.3 K/mm3 (0.1-1.0); Monocytes % 5.1 % (1.7-9.3); Neutrophils # 2.6 K/mm3 (1.8-7.8); Neutrophils % 52.9 % (37.0-80.0); Platelet Count 254 K/mm3 (142-424); Red Blood Count 2.94 M/mm3 (4.60-6.20); Red Cell Distribution Width 17.1 % (11.5-17.5); White Blood Count 4.8 K/mm3 (4.8-10.8)
[2022-05-03 07:08] LABS: Anion Gap 13.5 mEq/L (5-15); Blood Urea Nitrogen 43 mg/dl (9-20); Carbon Dioxide 28 mmol/L (22.0-30.0); Chloride 105 mmol/L (98-107); Creatinine Clearance Estimated 38 mL/min (50-200); Estimated Glomerular Filt Rate 27 ml/min (>60); GFR (African American) 33 ML/MIN (>60); Glucose 91 mg/dl (74-100); Potassium 4.5 mmoL/L (3.5-5.1); Sodium 142 mmol/L (136-145)
--- NOTE | 2022-05-03 08:42 | EXP.HP ---
History of Present Illness *Admission Date: 05/02/22 *Reason for visit:: Urinary retention/fatigue *History of present illness: 81-year-old white male with long history of chronic kidney disease, diastolic CHF and urinary retention with BPH who has been to urology clinic in the ER a couple of times over the past 48 hours with increasing problems with urinary retention and Torres catheter was placed. He was discharged home but came back on the day of admission with clotting of the catheter and low flow, catheter was irrigated and he had another 500 mL of retention, visited in urology clinic who recommended admitting so that inpatient work-up could be done and potentially replace Torres catheter irrigate. He was admitted overnight and this morning feels little bit better except for tiredness. His catheter still is draining [employer] colored urine but he has no pain or distention in the abdomen. [facility] Medical History (Updated 05/03/22 @ 08:45 by Melvin Navas MD) COPD (chronic obstructive pulmonary disease) Diabetes mellitus, type 2 Hernia Hypertension Obstructive sleep apnea Pacemaker Family History Maternal family history of cancer Social History (Updated 05/02/22 @ 18:28 by Frederic Rendon RN) Smoking Status: Never smoker alcohol intake: never current occupational status: retired Travel in the last 8 weeks: None Review of Systems Review of Systems Review of systems:: pertinent systems reviewed and negative unless documented below Constitutional Constitutional: Denies headache(s) ENT Ears, Nose, Mouth, and Throat: Denies headache(s) *Neurologic Neurologic: Denies headache(s) Meds Home Medications and Allergies Home Medications Medication Instructions Recorded Confirmed Type aspirin 81 mg tablet,delayed 81 mg PO DAILY heart health 09/09/19 05/02/22 History release (Adult Aspirin Regimen) buspirone 15 mg tablet 15 mg PO BID mood 09/09/19 05/02/22 History calcium carbonate 600 mg-vitamin 1 cap PO DAILY Supplement 09/09/19 05/02/22 History D3 5 mcg (200 unit) capsule (Calcium 600 + D(3)) doxazosin 2 mg tablet 2 mg PO DAILY prostate 09/09/19 05/02/22 History fluticasone 250 mcg-salmeterol 50 1 inh inhalation BID COPD 09/09/19 05/02/22 History mcg/dose blistr powdr for inhalation (Advair Diskus) furosemide 40 mg tablet 40 mg PO DAILY Edema 09/09/19 05/02/22 History gabapentin 100 mg capsule 100 mg PO DAILY Pain 09/09/19 06/07/20 History hydrocodone 7.5 mg-acetaminophen 1 tab PO Q6H PRN Pain 09/09/19 05/02/22 History 325 mg tablet lancets (Accu-Chek Softclix #50 ea 09/09/19 06/07/20 History Lancets) lovastatin 40 mg tablet 40 mg PO DAILY Cholesterol 09/09/19 05/02/22 History metformin 1,000 mg tablet 1,000 mg PO DAILY Diabetes 09/09/19 05/02/22 History metoprolol tartrate 25 mg tablet 25 mg PO DAILY blood pressure 09/09/19 06/07/20 History pantoprazole 20 mg tablet,delayed 20 mg PO BID acid reflux 09/09/19 05/02/22 History release (Protonix) polyethylene glycol 3350 17 17 g PO DAILY bowel regimen 09/09/19 06/07/20 History gram/dose oral powder (Miralax) rivaroxaban 20 mg tablet (Xarelto) 20 mg PO DAILY Blood thinner 09/09/19 05/02/22 History verapamil 240 mg 24 hr 240 mg PO DAILY Hypertension 09/09/19 05/02/22 History capsule,extended release bisoprolol fumarate 5 mg tablet 5 mg PO DAILY Hypertension 06/07/20 05/02/22 History cephalexin 500 mg capsule 500 mg PO BID uti 05/02/22 History famotidine 20 mg tablet 20 mg PO BID acid reflux 05/02/22 05/02/22 History lisinopril 10 mg tablet 10 mg PO DAILY Hypertension 05/02/22 05/02/22 History New Prescriptions to Start Prescriptions: Allergies Allergy/AdvReac Type Severity Reaction Status Date / Time Penicillins [PENICILLINS] Allergy Mild Verified 06/07/20 10:50 latex Allergy Verified 06/07/20 10:50 oseltamivir [From Tamiflu] Allergy Verified 06/07/20 10:50
--- NOTE | 2022-05-03 10:42 | SW/DCPLANNER ---
Addendum entered by Lorenza Calabrese 05/04/22 10:28: Patient information/order was faxed to Evelyn [facility]/ [facility]. Patient is expected to discharge later today or tomorrow pending no setbacks. Evelyn stated that home health services will begin Sunday 05/06. Original Note: I spoke with patient and his regarding discharge plans. Patient resides at home with his and is agreeable to home health services once medically stable for discharge. Patient does not have an agency preference for home health services. Discharge date is unknown at this time.
--- NOTE | 2022-05-03 10:53 | HMH.OTEV ---
OT Inpatient Evaluation Rehab OT IP Evaluation Start: 05/03/22 08:46 Freq: ONCE Status: Complete Protocol: Document 05/03/22 10:47 [facility] (Rec: 05/03/22 10:52 [facility] [id number]) Rehab OT IP Assessment Subjective History Pt oriented x 3 on arrival. Pt agreeable to engage in therapy evaluation. Pt was admitted via ED on 05/02/22 due to urinary retention. Prior to being in the hosptial he lived at home with his . Pt reports he is independent with dressing, bathing, and feeding. reports every now and then she does have to assist him with putting on his socks, but she has helped him do this for years . Pt is depenent upon his to complete all IADLs such as cleaning, cooking, laundry, etc. Pt does use a quad cane during functional transfers. The following information is copied from history and physcial report: 81-year-old white male with long history of chronic kidney disease, diastolic CHF and urinary retention with BPH who has been to urology clinic in the ER a couple of times over the past 48 hours with increasing problems with urinary retention and Torres catheter was placed. He was discharged home but came back on the day of admission with clotting of the catheter and low flow, catheter was irrigated and he had another 500 mL of retention, visited in urology clinic who recommended admitting so that inpatient work-up could be done and potentially replace Torres catheter irrigate. Subjective I am fine, I just want something to eat. Pt resting in bed. SBA for
--- NOTE | 2022-05-03 15:52 | EXP.SURG.CON ---
History of Present Illness *Admission Date: 05/02/22 *Reason for visit:: Urinary retention *History of present illness: Patient is an 81-year-old white male with a recent difficulty voiding. He was in the emergency room on May 01 and a Torres catheter placed at that time. He had been complaining of increased urinary frequency urgency and dysuria for 3 days. He also had some suprapubic discomfort. Torres catheter was placed with some difficulty according to the patient and he was discharged home. A CT scan performed prior to the catheter placement showed a distended bladder with bilateral hydro nephrosis and evidence of some renal atrophy bilaterally. Patient has been on doxazosin 2 mg for several years. His white count was normal on the but his creatinine was 2.7. His creatinine in early April was 2.2. Patient represented to the hospital on the following day with complaint of blood in his urine. He was admitted and his Torres catheter was irrigated. He currently has a leg bag draining elver urine. He is on aspirin and Xarelto for history of DVT back in 2005. He is anemic with a hemoglobin of 7.6. He denies any significant voiding symptoms prior to the past week. At baseline he states some occasional urinary incontinence and nocturia 3-4 times. He denies any straining with urination. [facility] Medical History (Updated 05/03/22 @ 08:45 by Melvin Navas MD) COPD (chronic obstructive pulmonary disease) Diabetes mellitus, type 2 Hernia Hypertension Obstructive sleep apnea Pacemaker Family History Other Maternal family history of cancer Social History (Updated 05/02/22 @ 18:28 by Frederic Rendon RN) Smoking Status: Never smoker alcohol intake: never current occupational status: retired Travel in the last 8 weeks: None Review of Systems Constitutional Constitutional: Denies headache(s) ENT Ears, Nose, Mouth, and Throat: Denies headache(s) *Neurologic Neurologic: Denies headache(s) Meds Home Medications and Allergies Home Medications Medication Instructions Recorded Confirmed Type aspirin 81 mg tablet,delayed 81 mg PO DAILY heart health 09/09/19 05/02/22 History release (Adult Aspirin Regimen) buspirone 15 mg tablet 15 mg PO BID Anxiety 09/09/19 05/02/22 History calcium carbonate 600 mg-vitamin 1 cap PO DAILY Supplement 09/09/19 05/02/22 History D3 5 mcg (200 unit) capsule (Calcium 600 + D(3)) doxazosin 2 mg tablet 2 mg PO DAILY benign prostatic 09/09/19 05/02/22 History hyperplasia fluticasone 250 mcg-salmeterol 50 1 inh inhalation BID COPD 09/09/19 05/02/22 History mcg/dose blistr powdr for inhalation (Advair Diskus) furosemide 40 mg tablet 40 mg PO DAILY Edema 09/09/19 05/02/22 History gabapentin 100 mg capsule 100 mg PO DAILY Pain 09/09/19 06/07/20 History hydrocodone 7.5 mg-acetaminophen 1 tab PO Q6H PRN Pain 09/09/19 05/02/22 History 325 mg tablet lancets (Accu-Chek Softclix #50 ea 09/09/19 06/07/20 History Lancets) lovastatin 40 mg tablet 40 mg PO DAILY Cholesterol 09/09/19 05/02/22 History metformin 1,000 mg tablet 1,000 mg PO DAILY Diabetes 09/09/19 05/02/22 History metoprolol tartrate 25 mg tablet 25 mg PO DAILY blood pressure 09/09/19 06/07/20 History pantoprazole 20 mg tablet,delayed 20 mg PO BID acid reflux 09/09/19 05/02/22 History release (Protonix) rivaroxaban 20 mg tablet (Xarelto) 20 mg PO DAILY Congestive heart 09/09/19 05/02/22 History failure/pacemaker verapamil 240 mg 24 hr 240 mg PO DAILY Hypertension 09/09/19 05/02/22 History capsule,extended release bisoprolol fumarate 5 mg tablet 5 mg PO DAILY Hypertension 06/07/20 05/02/22 History cephalexin 500 mg capsule 500 mg PO BID urinary tract 05/02/22 05/03/22 History infection famotidine 20 mg tablet 20 mg PO BID acid reflux 05/02/22 05/02/22 History lisinopril 10 mg tablet 10 mg PO DAILY Hypertension 05/02/22 05/02/22 Hi
[2022-05-03 17:33] LABS: POC Glucose,Bedside 117 (70-110)
[2022-05-03 17:44] LABS: Hematocrit 27.8 % (42.0-52.0)
[2022-05-03 17:52] LABS: Hemoglobin 8.7 g/dL (14.1-18.0)
--- NOTE | 2022-05-03 18:52 | PC.NURSE ---
pt has been pleasant. brought in med list, gave to pharmacy. pt alert x4, lungs with bilat exp wheezing in the am, RA tolerating well with sats 97-100%. 1 unit of blood administered, pt tolerated well. H&H HAS BEEN DRAWN. NPO after midnight, pt aware. cb and personal items within reach no questions or concerns at this time.
[2022-05-03 20:35] LABS: POC Glucose,Bedside 132 (70-110)
[2022-05-04] VITALS (8 sets, daily range): BP systolic 154–184; BP diastolic 69–99; PULSE 66–86; RESP 15–20; TEMP 36.4–36.7; O2SAT 93–99; BMI 32.0
[2022-05-04 05:44] LABS: POC Glucose,Bedside 114 (70-110)
--- NOTE | 2022-05-04 06:17 | PC.NURSE ---
NO ACUTE CHANGES SINCE PREVIOUS ASSESSMENT. PT REMAINS ALERT AND ORIENTED X4. HAS RESTED INTERMITTNTLY THIS SITF. HAS BEEN UP TO THE BATHROOM WITH STANDBY ASSIST THIS SHIFT. MENDOZA REMAINS IN PLACE DRAINING DARK YELLOW URINE. NO C/O PAIN THIS SHIFT. VSS.
[2022-05-04 07:46] LABS: Basophils % 0.8 % (0.1-2.0); Eosinophils # 0.1 K/mm3 (0.0-0.4); Eosinophils % 1.4 % (0.1-12.0); Hemoglobin 8.3 g/dL (14.1-18.0); Lymphocytes # 1.8 K/mm3 (0.7-4.5); Lymphocytes % 35.4 % (10-50); Mean Corpuscular HGB Conc 30.9 g/dL (31.8-35.4); Mean Corpuscular Hemoglobin 25.5 pg (27.0-31.2); Mean Corpuscular Volume 82.4 fl (80-94); Mean Platelet Volume 7.8 fl (7.4-10.4); Monocytes # 0.3 K/mm3 (0.1-1.0); Monocytes % 4.8 % (1.7-9.3); Neutrophils % 57.7 % (37.0-80.0); Platelet Count 279 K/mm3 (142-424); Red Blood Count 3.27 M/mm3 (4.60-6.20); Red Cell Distribution Width 17.1 % (11.5-17.5); White Blood Count 5.2 K/mm3 (4.8-10.8)
[2022-05-04 07:53] LABS: Anion Gap 11.3 mEq/L (5-15); Blood Urea Nitrogen 31 mg/dl (9-20); Calcium 8.4 mg/dl (8.4-10.2); Carbon Dioxide 29 mmol/L (22.0-30.0); Chloride 106 mmol/L (98-107); Creatinine Clearance Estimated 44 mL/min (50-200); Estimated Glomerular Filt Rate 32 ml/min (>60); GFR (African American) 39 ML/MIN (>60); Glucose 103 mg/dl (74-100); Potassium 4.3 mmoL/L (3.5-5.1); Sodium 142 mmol/L (136-145)
--- NOTE | 2022-05-04 08:06 | EXP.PN ---
Subjective *Date: 05/04/22 *Time: 08:06 Interval history: Patient rested well. Tolerated transfusion well. Feels little bit better. Still wearing Torres catheter with leg bag. Exam Data for Last 24 hours Vital signs and Labs for Last 24 Hours: Temp Pulse Resp BP Pulse Ox 97.6 F 77 18 168/71 H 93 L 05/04/22 04:00 05/04/22 04:00 05/04/22 04:00 05/04/22 04:00 05/04/22 04:00 Laboratory Results - last 24 hr 05/03/22 06:30: Blood Type Confirm O Positive 05/03/22 09:50: Blood Type O Positive, Antibody Screen Negative, Crossmatch (AHG) See Detail 05/03/22 17:21: POC Glucose 117 H 05/03/22 17:34: Hgb 8.7 L D, Hct 27.8 L 05/03/22 20:27: POC Glucose 132 H 05/04/22 05:27: POC Glucose 114 H 05/04/22 07:38: WBC 5.2, RBC 3.27 L, Hgb 8.3 L, Hct 27.0 L, MCV 82.4, MCH 25.5 L, MCHC 30.9 L, RDW 17.1, Plt Count 279, MPV 7.8, Neut % (Auto) 57.7, Lymph % (Auto) 35.4, [place] % (Auto) 4.8, Eos % (Auto) 1.4, Baso % (Auto) 0.8, Neut # (Auto) 3.0, Lymph # (Auto) 1.8, [place] # (Auto) 0.3, Eos # (Auto) 0.1, Baso # (Auto) 0.0 05/04/22 07:38: Sodium 142, Potassium 4.3, Chloride 106, Carbon Dioxide 29, Anion Gap 11.3, BUN 31 H D, Creatinine 2.00 H, Estimated Creat Clear 44, Estimated GFR 32 L, Est GFR ( Amer) 39 L, Glucose 103 H, Calcium 8.4 I & O for Last 24 hours: Intake & Output 05/01/22 05/02/22 05/03/22 05/04/22 11:59 11:59 11:59 11:59 Intake Total 1570 / 1570 1910 Output Total 2099 Balance -530 / -530 61 / 61 Weight 248 lb 237 lb 7.005 oz 236 lb 5 oz Microbiology Reports for the Last 24 Hours: Microbiology 05/02/22 10:42 Urine,Catheterized Urine Culture - Preliminary NO GROWTH AFTER 24 HOURS Constitutional Comments: Alert, pleasant. Oriented. Cardiopulmonary assessment unchanged. Neurologically intact. Abdomen soft. Torres catheter draining yellow urine that is clear this morning. Assessment and Plan *Assessment and plan (1) Acute retention of urine: Status: Acute Category: Medical Code(s): R33.8 - Other retention of urine (2) Acute kidney injury: Status: Acute Category: Medical Code(s): N17.9 - Acute kidney failure, unspecified (3) Chronic diastolic CHF (congestive heart failure): Status: Acute Category: Medical Code(s): I50.32 - Chronic diastolic (congestive) heart failure (4) Anemia, chronic disease: Status: Acute Category: Medical Code(s): D63.8 - Anemia in other chronic diseases classified elsewhere Plan 1. Urology consult noted. Cystoscopy today. Urine seems to have cleared somewhat but high risk of clotting at home given his low flow state and blood in the catheter line. 2. Acute kidney injury-improved slightly improved. Patient's chronic kidney disease is stage IV, baseline creatinine around 2.2 over the last several weeks per 3. Diastolic CHF-appears to be euvolemic at this point. Watch fluid status carefully. 4. Anemia chronic disease-has done well after 1 unit of packed cells. PT/OT evaluation to see if home health would be of benefit for he and his .
--- NOTE | 2022-05-04 09:46 | HMH.PHAINT1 ---
Pharmacy Intervention Comments: MEDICATION RECONCILIATION COMPLETED ON PATIENT USING EXTERNAL FILL HISTORY FROM PHARMACY. -MELISSA HILL, ABDULAZIZD
--- NOTE | 2022-05-04 10:11 | PC.NURSE ---
Pt was pulled up in the bed with 2 assist. Pt states he is comfortable and has no further requests at this time.
--- NOTE | 2022-05-04 13:18 | P.OP_ITS ---
Date of procedure: 05/04/22 Pre-op Diagnosis:: Urinary retention Post-op Diagnosis:: Hypotonic bladder Procedure performed:: Cystoscopy Surgeon:: Travis Matias MD Anesthesia: MAC Estimated blood loss (mL): 0 Clinical Note:: 81-year-old white male with recent urinary complaints and evidence of bladder distention and bilateral hydronephrosis on CT scan. Operative findings:: Patient's prostate does not appear to be obstructing and his very short prostatic urethra. There is diffuse bullous edema in the bladder from his Torres catheter. Operative note:: Patient taken to the cystoscopy suite after informed consent was obtained. His Torres catheter was removed. On the stretcher he was prepped and draped in the standard surgical fashion. 2% lidocaine placed into the urethra and 1 mg of Versed was given intravenously. The 16 English cystoscope then passed into the urethral meatus and into the bladder without difficulty. There was diffuse bullous edema in the bladder from his recent Torres catheter. No evidence of stones and very difficult to determine if there is trabeculation or cellules due to the diffuse bullous edema. Ureteral orifices were well away from the bladder neck. Retroflexion of the scope shows no evidence of a median lobe. The prostatic urethra is very short and does not appear to be obstructing. There is no evidence of any urethral strictures. The scope removed patient tolerated procedure well. 16 English Torres catheter was replaced without difficulty. I discussed the findings with the patient's family. I recommended that he begin a regimen of the self intermittent catheterization 3-4 times a day to prevent further kidney disease. Condition: stable Disposition: same day Specimens:: None Complications:: None
--- NOTE | 2022-05-04 13:44 | EXP.DC.SUM ---
General Admission date:: 05/02/22 Discharge date: 05/04/22 HPI HPI HPI: Patient is an 81-year-old white male with a recent difficulty voiding. He was in the emergency room on May 01 and a Torres catheter placed at that time. He had been complaining of increased urinary frequency urgency and dysuria for 3 days. He also had some suprapubic discomfort. Torres catheter was placed with some difficulty according to the patient and he was discharged home. A CT scan performed prior to the catheter placement showed a distended bladder with bilateral hydro nephrosis and evidence of some renal atrophy bilaterally. Patient has been on doxazosin 2 mg for several years. His white count was normal on the but his creatinine was 2.7. His creatinine in early April was 2.2. Patient represented to the hospital on the following day with complaint of blood in his urine. He was admitted and his Torres catheter was irrigated. He currently has a leg bag draining elver urine. He is on aspirin and Xarelto for history of DVT back in 2005. He is anemic with a hemoglobin of 7.6. He denies any significant voiding symptoms prior to the past week. At baseline he states some occasional urinary incontinence and nocturia 3-4 times. He denies any straining with urination. Hospital Course Hospital Course Hospital Course: Patient was admitted, placed on antibiotics for possible UTI/urinary retention, tolerated this well, Torres catheter was maintained. Bleeding cleared with IV fluids and continued Torres placement. Urology was consulted-appreciate recommendations, cystoscopy was performed this morning which revealed edema from his Torres placement but no evidence of lesions or trabeculations or stones. It was recommended that he begin intermittent self-catheterization 3 times daily. Given the patient's advanced age and debility we have initiated home health referral. Plan will be for patient to be discharged home today with his catheter in place, and then home health can instruct he and his on self-catheterization and changing the catheter on Saturday. He will continue antibiotics, aggressive fluids were recommended. He will finish up his antibiotics as previously for UTI prevention given his indwelling Torres. In regards to his anemia he responded well to 1 unit of packed cells with hemoglobin going over 8. Acute kidney injury was treated with IV fluids, this responded very nicely and is back down to his baseline creatinine. Exam Data for Last 24 hours Vital signs and Labs for Last 24 Hours: Temp Pulse Resp BP Pulse Ox 97.9 F 67 18 179/94 H 96 05/04/22 11:41 05/04/22 13:05 05/04/22 13:05 05/04/22 13:05 05/04/22 13:05 Laboratory Results - last 24 hr 05/03/22 09:50: Crossmatch (AHG) See Detail 05/03/22 17:21: POC Glucose 117 H 05/03/22 17:34: Hgb 8.7 L D, Hct 27.8 L 05/03/22 20:27: POC Glucose 132 H 05/04/22 05:27: POC Glucose 114 H 05/04/22 07:38: WBC 5.2, RBC 3.27 L, Hgb 8.3 L, Hct 27.0 L, MCV 82.4, MCH 25.5 L, MCHC 30.9 L, RDW 17.1, Plt Count 279, MPV 7.8, Neut % (Auto) 57.7, Lymph % (Auto) 35.4, [place] % (Auto) 4.8, Eos % (Auto) 1.4, Baso % (Auto) 0.8, Neut # (Auto) 3.0, Lymph # (Auto) 1.8, [place] # (Auto) 0.3, Eos # (Auto) 0.1, Baso # (Auto) 0.0 05/04/22 07:38: Sodium 142, Potassium 4.3, Chloride 106, Carbon Dioxide 29, Anion Gap 11.3, BUN 31 H D, Creatinine 2.00 H, Estimated Creat Clear 44, Estimated GFR 32 L, Est GFR ( Amer) 39 L, Glucose 103 H, Calcium 8.4 I & O for Last 24 hours: Intake & Output 05/02/22 05/03/22 05/04/22 05/05/22 11:59 11:59 11:59 11:59 Intake Total 1570 / 1570 1910 Output Total 2099 / 2099 2975 / 2975 Balance -530 / -530 -1064 / -1064 Weight 248 lb 237 lb 7.005 oz 236 lb 5 oz Microbiology Reports for the Last 24 Hours: Microbiology 05/02/22 10:42 Urine,Catheterized Urine Culture - Final NO GROWTH AFTER 48 HOURS Constitutional Constitutional: no
--- NOTE | 2022-05-04 13:49 | PC.NURSE ---
pt received meal tray and is eating. No further requests were voiced at this time.
--- NOTE | 2022-05-04 14:10 | HMH.PHAINT1 ---
Pharmacy Intervention Comments: DISCHARGE MEDICATION COUNSELING PROVIDED. DISCUSSED NO CHANGES WERE MADE TO HOME MEDICATION LIST. PATIENT VERBALIZED NO QUESTIONS AT THIS TIME.
--- NOTE | 2022-05-04 14:26 | PC.NURSE ---
Addendum entered by Meredith Cochran RN 05/04/22 15:59: PT REQUESTED TO GO ON AND BE CONNECTED TO LEG BAG BEFORE DISCHARGE. Original Note: AFTER TALKING TO IT WAS DECIDED THAT PT NEEDED TO KEEP HIS CATHETER IN UNTIL HOME HEALTH CAN SEE HIM ON SATURDAY AND THEY WILL TEACH HIM HOW TO SELF CATH TID. PER CARE MANAGEMENT PT'S HOME HEALTH WILL START ON SUNDAY 05/06. SINCE PT HAS ARRIVED BACK TO THE FLOOR HE HAS BEEN SITTING UP ON THE SOB WITH FAMILY AT BEDSIDE. ALERT AND ORIENTED 4. PT WILL BE SENT HOME WITH LEG BAG AND RECEIVED INSTRUCTIONS ON HOW TO SWITCH OUT BAGS.
== END 2022-05-04 16:00 | disposition home health service (06) ==
LOC: ER 13:59 → 2ND 14:06
PROVIDERS: Urology; Admitting Provider Internal Medicine Adolescent Medicine; Emergency Provider Emergency Medicine; PCP Internal Medicine Adolescent Medicine; Visit Provider Internal Medicine Adolescent Medicine
PROC: (CPT 52000; principal; 2022-05-04 12:15)
DX: N31.2 Flaccid neuropathic bladder, not elsewhere classified (principal); N13.39 Other hydronephrosis; N39.498 Other specified urinary incontinence; R33.8 Other retention of urine; I13.0 Hypertensive heart and chronic kidney disease with heart failure and stage 1 through stage 4 chronic kidney disease, or unspecified chronic kidney disease; I50.32 Chronic diastolic (congestive) heart failure; J44.9 Chronic obstructive pulmonary disease, unspecified; Z95.0 Presence of cardiac pacemaker; E11.22 Type 2 diabetes mellitus with diabetic chronic kidney disease; Z79.84 Long term (current) use of oral hypoglycemic drugs; Z79.01 Long term (current) use of anticoagulants; N18.4 Chronic kidney disease, stage 4 (severe); N17.9 Acute kidney failure, unspecified; Z79.899 Other long term (current) drug therapy; D64.9 Anemia, unspecified; Z86.718 Personal history of other venous thrombosis and embolism
CPT/HCPCS: 52000; G0378; G0379; 36415; 80048; 80053; 82962; 85014; 85018; 85025; 86850; 87086; 97162; 97166; 99152; C9803; J0696; J2405; P9016; U0003; U0005

== ENCOUNTER 2022-05-23 08:50 | Outpatient (CLI) | payer MEDICARE, MEDICAID, SELFPAY ==
[2022-05-23 09:30] VITALS: BP 125/64; PULSE 62; RESP 18; O2SAT 97
[2022-05-23 10:30] VITALS: BP 141/75; PULSE 61; RESP 18; O2SAT 97
== END 2022-05-23 10:45 | disposition home or self-care (01) ==
LOC: INF 08:51
PROVIDERS: PCP Internal Medicine Adolescent Medicine; Visit Provider Internal Medicine Nephrology
DX: D50.9 Iron deficiency anemia, unspecified (principal)
CPT/HCPCS: 96365; J1756

== ENCOUNTER 2022-05-30 08:58 | Outpatient (CLI) | payer MEDICARE, MEDICAID, SELFPAY ==
[2022-05-30 09:40] VITALS: BP 130/66; PULSE 62; RESP 18; O2SAT 97
[2022-05-30 10:54] VITALS: BP 137/73; PULSE 60; RESP 18
== END 2022-05-30 10:54 | disposition home or self-care (01) ==
LOC: INF 08:59
PROVIDERS: PCP Internal Medicine Adolescent Medicine; Visit Provider Internal Medicine Nephrology
DX: D50.9 Iron deficiency anemia, unspecified (principal)
CPT/HCPCS: 96365; J1756

== ENCOUNTER 2022-06-06 08:39 | Outpatient (CLI) | payer MEDICARE, MEDICAID, SELFPAY ==
[2022-06-06 09:00] VITALS: BP 134/67; PULSE 62; RESP 18; TEMP 36.4; O2SAT 98
[2022-06-06 10:15] VITALS: BP 137/79; PULSE 61; RESP 18; O2SAT 99
== END 2022-06-06 10:30 | disposition home or self-care (01) ==
LOC: INF 08:40
PROVIDERS: PCP Internal Medicine Adolescent Medicine; Visit Provider Internal Medicine Nephrology
DX: D50.9 Iron deficiency anemia, unspecified (principal)
CPT/HCPCS: 96365; J1756

== ENCOUNTER 2022-06-09 10:08 | Observation (INO) | payer MEDICARE, MEDICAID, SELFPAY ==
[2022-06-09] VITALS (19 sets, daily range): BP systolic 142–183; BP diastolic 56–96; PULSE 60–89; RESP 18–20; TEMP 36.7–37.2; O2SAT 93–97; BMI 30.9
--- NOTE | 2022-06-09 10:26 | PC.NURSE ---
patient came to floor by wheelchair from admission
[2022-06-09 11:22] LABS: Basophils % 0.6 % (0.1-2.0); Eosinophils # 0.1 K/mm3 (0.0-0.4); Eosinophils % 1.1 % (0.1-12.0); Hematocrit 27.2 % (42.0-52.0); Hemoglobin 8.1 g/dL (14.1-18.0); Mean Corpuscular HGB Conc 29.7 g/dL (31.8-35.4); Mean Corpuscular Hemoglobin 25.8 pg (27.0-31.2); Mean Corpuscular Volume 86.9 fl (80-94); Mean Platelet Volume 7.6 fl (7.4-10.4); Monocytes # 0.3 K/mm3 (0.1-1.0); Monocytes % 5.2 % (1.7-9.3); Neutrophils # 2.7 K/mm3 (1.8-7.8); Platelet Count 247 K/mm3 (142-424); Red Blood Count 3.13 M/mm3 (4.60-6.20); Red Cell Distribution Width 19.5 % (11.5-17.5)
[2022-06-09 11:29] LABS: Chloride 103 mmol/L (98-107); Potassium 4.6 mmoL/L (3.5-5.1); Sodium 141 mmol/L (136-145)
[2022-06-09 11:32] LABS: Anion Gap 13.6 mEq/L (5-15); Blood Urea Nitrogen 35 mg/dl (9-20); Carbon Dioxide 29 mmol/L (22.0-30.0); Creatinine Clearance Estimated 39 mL/min (50-200); Estimated Glomerular Filt Rate 29 ml/min (>60); GFR (African American) 35 ML/MIN (>60); Glucose 84 mg/dl (74-100)
--- NOTE | 2022-06-09 11:54 | EXP.HP ---
History of Present Illness *Admission Date: 06/09/22 *Reason for visit:: Anemia of chronic disease with dizziness, breathlessness/urinary retention *History of present illness: 81-year-old with diastolic CHF, chronic spinal stenosis, chronic dizziness, frequent falls, recent hospitalization with UTI/urinary retention, who has been feeling worse over the past week at home. He has had an indwelling Torres catheter over the past couple of weeks, we had initially recommended home health to be involved to teach him how to do in and out catheterizations 3 times a day but patient declined this because he was concerned about pain with the catheterizations. He came to see me in my office 2 days ago and was having increasing burning from the presence of the catheter and wanted it out. We did labs, checked a urine culture which is pending, but noticed the following day that his hemoglobin was below 8 and the lab test from the office. I had him come back today to see how he was feeling and he was feeling worse with fatigue, dizziness when he stood up and increasing burning in his bladder from the presence of the catheter. Decided to admit patient for reevaluation of his anemia status, and removal of his Torres catheter and reevaluation of his retention status. [facility] Medical History Anxiety Arthritis Atherosclerosis Atrial fibrillation CHF (congestive heart failure) Chronic kidney disease Chronic pain syndrome COPD (chronic obstructive pulmonary disease) Diabetes mellitus, type 2 GERD (gastroesophageal reflux disease) Hernia History of cataract History of stroke Hypertension Iron deficiency anemia Obstructive sleep apnea Osteoarthritis Osteoporosis Pacemaker Skin cancer Sleep apnea Urinary incontinence Surgical History History of ankle surgery Previous back surgery Family History (Updated 06/09/22 @ 11:12 by Janice Gautam RN) Family history of acute congestive heart failure Maternal family history of cancer Social History (Updated 06/09/22 @ 11:15 by Janice Gautam RN) Smoking Status: Never smoker alcohol intake: never current occupational status: retired Travel in the last 8 weeks: None Review of Systems Review of Systems Review of systems:: pertinent systems reviewed and negative unless documented below Meds Home Medications and Allergies Home Medications Medication Instructions Recorded Confirmed Type aspirin 81 mg tablet,delayed 81 mg PO DAILY [facility] 09/09/19 06/06/22 History release (Adult Aspirin Regimen) buspirone 15 mg tablet 15 mg PO BID Anxiety 09/09/19 06/06/22 History calcium carbonate 600 mg-vitamin 1 cap PO DAILY Supplement 09/09/19 06/06/22 History D3 5 mcg (200 unit) capsule (Calcium 600 + D(3)) doxazosin 2 mg tablet 2 mg PO DAILY benign prostatic 09/09/19 06/06/22 History hyperplasia fluticasone 250 mcg-salmeterol 50 1 inh inhalation BID COPD 09/09/19 06/06/22 History mcg/dose blistr powdr for inhalation (Advair Diskus) furosemide 40 mg tablet 40 mg PO DAILY Edema 09/09/19 06/06/22 History gabapentin 100 mg capsule 100 mg PO TID Pain 09/09/19 06/06/22 History hydrocodone 7.5 mg-acetaminophen 1 tab PO Q6H PRN Pain 09/09/19 06/06/22 History 325 mg tablet lovastatin 40 mg tablet 40 mg PO DAILY Cholesterol 09/09/19 06/06/22 History metformin 1,000 mg tablet 500 mg PO BID Diabetes 09/09/19 06/06/22 History pantoprazole 20 mg tablet,delayed 20 mg PO BID acid reflux 09/09/19 06/06/22 History release (Protonix) rivaroxaban 20 mg tablet (Xarelto) 20 mg PO DAILY Congestive heart 09/09/19 06/06/22 History failure/pacemaker famotidine 20 mg tablet 20 mg PO BID acid reflux 05/02/22 06/06/22 History lisinopril 10 mg tablet 10 mg PO DAILY Hypertension 05/02/22 06/06/22 History ipratropium 0.5 mg-albuterol 3 mg 3 ml inhalation Q6H Breathing 05/04/22 06/06/22 History (2.5 mg base)/
[2022-06-09 15:11] LABS: Coronavirus 19, PCR Not Detected (NotDetected); Influenza A, PCR Not Detected (NotDetected); Influenza B, PCR Not Detected (NotDetected)
[2022-06-09 16:03] LABS: POC Glucose,Bedside 107 (70-110)
--- NOTE | 2022-06-09 19:03 | PC.NURSE ---
Pt a/o x 4. RR even and unlabored. VSS. CB in reach. Indwelling cath removed at approx 1730. NAD, no c/o's at this time.
[2022-06-09 19:39] LABS: Hematocrit 29.2 % (42.0-52.0); Hemoglobin 8.8 g/dL (14.1-18.0)
[2022-06-09 20:51] LABS: POC Glucose,Bedside 109 (70-110)
--- NOTE | 2022-06-10 00:36 | PC.NURSE ---
pt attempted x2 to void via urinal unsuccessful, in and out cath performed with 750ml of clear orange color urine, pt given dose of pyridium earlier in the day. pt tolerated well.
[2022-06-10 03:41] VITALS: BP 157/68; PULSE 69; RESP 18; TEMP 36.8; O2SAT 95
--- NOTE | 2022-06-10 04:46 | PC.NURSE ---
pt is alert and oriented x4, no acute distress, pt unable to void via urinal, in and out cath performed 6 hours after catheter removal as ordered and 750ml of clear, pyridium colored urine noted, lung sounds diminished, 02 sats 95-97% on room air, VSS, generalized edema 2+ noted
[2022-06-10 05:00] VITALS: BMI 30.7
--- NOTE | 2022-06-10 05:24 | PC.NURSE ---
pt up to bathroom attempting to void unsuccessful, 2330 was last in and out cath and pt can be cathed again at 0730 if no void by then. pt verbalized understanding.
[2022-06-10 06:27] VITALS: PULSE 62; PULSE 64
--- NOTE | 2022-06-10 06:57 | PC.NURSE ---
0645 pt complains of pressure feeling and has been unable to void x2 attempts to bathroom, in and out cath performed per orders q8 hours using sterile technique and 800ml of clear dark yellow urine, due to time change it has been 8 hours since last cath, pt tolerated well and stated he felt better after.
[2022-06-10 07:14] LABS: POC Glucose,Bedside 101 (70-110)
[2022-06-10 07:50] VITALS: BP 131/52; PULSE 77; RESP 17; TEMP 36.6; O2SAT 97
--- NOTE | 2022-06-10 08:43 | EXP.DC.SUM ---
General Admission date:: 06/09/22 Discharge date: 06/10/22 HPI HPI HPI: 81-year-old with diastolic CHF, chronic spinal stenosis, chronic dizziness, frequent falls, recent hospitalization with UTI/urinary retention, who has been feeling worse over the past week at home. He has had an indwelling Torres catheter over the past couple of weeks, we had initially recommended home health to be involved to teach him how to do in and out catheterizations 3 times a day but patient declined this because he was concerned about pain with the catheterizations. He came to see me in my office 2 days ago and was having increasing burning from the presence of the catheter and wanted it out. We did labs, checked a urine culture which is pending, but noticed the following day that his hemoglobin was below 8 and the lab test from the office. I had him come back today to see how he was feeling and he was feeling worse with fatigue, dizziness when he stood up and increasing burning in his bladder from the presence of the catheter. Decided to admit patient for reevaluation of his anemia status, and removal of his Torres catheter and reevaluation of his retention status. Hospital Course Hospital Course Hospital Course: Patient was admitted. Torres catheter was removed, patient continued to struggle with urinary retention, had to have in and out caths every 8 hours with 6 to 700 mL of urine each time. However, patient felt much more comfortable with the catheter out. No fevers were noted. Patient's urine culture is pending. Patient was given 1 unit of packed cells because of his dyspnea, pallor and his overall medical problems with history of heart disease and hemoglobin responded with increased values up to 8.8 g. [place] much better this morning. Nursing staff will instruct he and his about In-N-Out catheters and if she is able to do this they will be discharged home with In-N-Out catheterization 4 times daily to 3 times daily as needed. He will then follow-up with urology and with me as scheduled. If his is unable to do the In-N-Out catheter she understands that we will have to go home once again with a Torres cath. Nursing staff was instructed about this and is on board with plan. Exam Data for Last 24 hours Vital signs and Labs for Last 24 Hours: Temp Pulse Resp BP Pulse Ox 97.8 F 77 17 131/52 L 97 06/10/22 07:50 06/10/22 07:50 06/10/22 07:50 06/10/22 07:50 06/10/22 07:50 Laboratory Results - last 24 hr 06/09/22 11:00: WBC 5.0, RBC 3.13 L, Hgb 8.1 L, Hct 27.2 L, MCV 86.9, MCH 25.8 L, MCHC 29.7 L, RDW 19.5 H, Plt Count 247, MPV 7.6, Neut % (Auto) 54.0, Lymph % (Auto) 39.0, [place] % (Auto) 5.2, Eos % (Auto) 1.1, Baso % (Auto) 0.6, Neut # (Auto) 2.7, Lymph # (Auto) 2.0, [place] # (Auto) 0.3, Eos # (Auto) 0.1, Baso # (Auto) 0.0 06/09/22 11:00: Sodium 141, Potassium 4.6, Chloride 103, Carbon Dioxide 29, Anion Gap 13.6, BUN 35 H, Creatinine 2.20 H, Estimated Creat Clear 39, Estimated GFR 29 L, Est GFR ( Amer) 35 L, Glucose 84, Calcium 9.0 06/09/22 11:00: SARS-CoV-2 (PCR) Not detected, Influenza A Untype (PCR) Not detected, Influenza Type B (PCR) Not detected 06/09/22 13:33: Blood Type O Positive, Antibody Screen Negative, Crossmatch (AHG) See Detail 06/09/22 15:53: POC Glucose 107 06/09/22 19:25: Hgb 8.8 L, Hct 29.2 L 06/09/22 20:41: POC Glucose 109 06/10/22 07:07: POC Glucose 101 I & O for Last 24 hours: Intake & Output 06/07/22 06/08/22 06/09/22 06/10/22 11:59 11:59 11:59 10:59 Intake Total 1850 Output Total 2049 Balance -199 / -199 Weight 228 lb 8 oz 227 lb 2 oz Constitutional Constitutional: no acute distress *Routine HEENT Exam Head: Present normocephalic Eye: Present EOMI and PERRL ENT: Present mucous membranes moist *Routine Neck Exam Neck: Present supple; Absent lymphadenopathy *Routine Respiratory Exam Respiratory: Present CTA bilaterally *Routine Cardiovascular Exam Cardiovascular: Pr
--- NOTE | 2022-06-10 10:14 | HMH.PHAINT1 ---
Pharmacy Intervention Comments: DISCHARGE MEDICATION COUNSELING PROVIDED. DISCUSSED SHORT-COURSE LEVAQUIN THERAPY (ANTIBIOTIC, ONCE DAILY, MAY CAUSE GI UPSET/N/V/D, RARE RISK OF TENDON RUPTURE, SEPARATE FROM VITAMINS/SUPPLEMENTS BY 2-4 HOURS). PATIENT VERBALIZED NO QUESTIONS AT THIS TIME.
--- NOTE | 2022-06-10 11:36 | PC.NURSE ---
Addendum entered by Frederic Rendon RN 06/10/22 11:37: successful Original Note: was sucessful at in and out cathing pt without any difficulty. Educated pt and . 2 cath kits sent with pt.
--- NOTE | 2022-06-11 09:52 | SW/DCPLANNER ---
Addendum entered by Lorenza Calabrese 06/11/22 10:47: Evelyn woods/ [facility] stated that services will begin tomorrow for this patient. Original Note: Patient information/order has been faxed to [facility] to start home health services. I spoke with patient's : agreeable to restart home health services with [facility]. Patient did discharge home over the weekend. I will follow up with Evelyn at [facility] once patient information is reviewed.
--- NOTE | 2022-06-11 11:23 | CARE MANAGER ---
Called and spoke with Mrs. Sahu regarding post discharge status. She stated that Mr. Sahu is doing well with in/out caths and is feeling some better today. She states that he has continued to take his antibiotics and plans to f//u with Dr. Navas on 06/21. I advised her that if she receives a survery, to please fill out and return. No complaints or concerns voiced at this time.
== END 2022-06-10 11:20 | disposition home health service (06) ==
PROVIDERS: Admitting Provider Internal Medicine Adolescent Medicine; PCP Internal Medicine Adolescent Medicine; Visit Provider Internal Medicine Adolescent Medicine
DX: I13.0 Hypertensive heart and chronic kidney disease with heart failure and stage 1 through stage 4 chronic kidney disease, or unspecified chronic kidney disease (principal); I50.32 Chronic diastolic (congestive) heart failure; N17.9 Acute kidney failure, unspecified; R33.8 Other retention of urine; N39.0 Urinary tract infection, site not specified; R29.6 Repeated falls; N18.9 Chronic kidney disease, unspecified; D50.9 Iron deficiency anemia, unspecified; I48.91 Unspecified atrial fibrillation; J44.9 Chronic obstructive pulmonary disease, unspecified; E11.22 Type 2 diabetes mellitus with diabetic chronic kidney disease; I25.10 Atherosclerotic heart disease of native coronary artery without angina pectoris; Z79.84 Long term (current) use of oral hypoglycemic drugs; Z20.822 Contact with and (suspected) exposure to COVID-19
CPT/HCPCS: G0378; G0379; 80048; 82962; 85014; 85018; 85025; 86850; 87040; 94640; C9803; J1335; P9016; U0003; U0005

== ENCOUNTER → 2022-08-17 10:07 | Outpatient (CLI) | payer MEDICARE, MEDICAID, SELFPAY ==
[2022-08-17 11:11] LABS: Basophils % 1.1 % (0.1-2.0); Eosinophils # 0.1 K/mm3 (0.0-0.4); Eosinophils % 1.8 % (0.1-12.0); Hematocrit 31.8 % (42.0-52.0); Hemoglobin 9.5 g/dL (14.1-18.0); Lymphocytes # 2.1 K/mm3 (0.7-4.5); Mean Corpuscular Hemoglobin 29.2 pg (27.0-31.2); Mean Corpuscular Volume 97.4 fl (80-94); Mean Platelet Volume 7.9 fl (7.4-10.4); Monocytes # 0.2 K/mm3 (0.1-1.0); Monocytes % 3.7 % (1.7-9.3); Neutrophils # 1.7 K/mm3 (1.8-7.8); Neutrophils % 42.4 % (37.0-80.0); Platelet Count 184 K/mm3 (142-424); Red Blood Count 3.26 M/mm3 (4.60-6.20); White Blood Count 4.1 K/mm3 (4.8-10.8)
[2022-08-17 11:29] LABS: MANUAL DIFFERENTIAL MANUAL DIFFERENTIAL (MANUAL DIFF)
[2022-08-17 12:00] LABS: Alanine Aminotransferase 11 U/L (12-78); Albumin Level 3.8 g/dl (3.5-5.0); Albumin/Globulin Ratio 2.1 (1.1-1.8); Alkaline Phosphatase 47 U/L (38-126); Anion Gap 12.8 mEq/L (5-15); Aspartate Amino Transferase 19 U/L (17-59); Bilirubin,Total 0.2 mg/dl (0.2-1.3); Blood Urea Nitrogen 33 mg/dl (9-20); Calcium 8.7 mg/dl (8.4-10.2); Carbon Dioxide 29 mmol/L (22.0-30.0); Chloride 106 mmol/L (98-107); Chol/HDL Ratio 2.5 (1-3.5); Cholesterol 91 mg/dl (140-200); Estimated Glomerular Filt Rate 27 ml/min (>60); GFR (African American) 33 ML/MIN (>60); Globulin 1.8 g/dL (1.3-3.2); Glucose 88 mg/dl (74-100); HDL Cholesterol 37 mg/dl (40-60); Potassium 4.8 mmoL/L (3.5-5.1); Sodium 143 mmol/L (136-145); Total Protein,Serum 5.6 g/dl (6.3-8.2); Triglycerides 59 mg/dl (30-150); VLDL Cholesterol 12 mg/dL (0-40)
[2022-08-17 12:11] LABS: Direct LDL Cholesterol 42.88 mg/dL (100-129)
[2022-08-17 18:21] LABS: Lymphocytes % 47 % (10-50); Monocytes % 7 % (2-9); Neutrophils % 46 % (42-76); Platelet Estimate Normal; RBC Morphology Normal; Total Cells Counted 100
== END ==
PROVIDERS: PCP Internal Medicine Adolescent Medicine; Visit Provider Internal Medicine Adolescent Medicine
DX: E11.42 Type 2 diabetes mellitus with diabetic polyneuropathy (principal); E78.5 Hyperlipidemia, unspecified; Z79.84 Long term (current) use of oral hypoglycemic drugs
CPT/HCPCS: 36415; 80053; 80061; 85007; 85025

== ENCOUNTER 2023-01-15 13:00 | Observation (INO) | payer MEDICARE, MEDICAID, SELFPAY ==
--- NOTE | 2023-01-15 13:17 | PC.NURSE ---
arrived to floor from front lobby admissions by w/c
--- NOTE | 2023-01-15 13:25 | CT_ITS ---
PROCEDURE INFORMATION: Exam: CT Chest Without Contrast; Diagnostic Exam date and time: 01/15/2023 4:36 PM Age: 82 years old Clinical indication: Other: Weight loss; Additional info: Weight loss, neck mass TECHNIQUE: Imaging protocol: Diagnostic computed tomography of the chest without contrast. Radiation optimization: All CT scans at this facility use at least one of these dose optimization techniques: automated exposure control; mA and/or kV adjustment per patient size (includes targeted exams where dose is matched to clinical indication); or iterative reconstruction. REPORTING DATA: Count of CT and Cardiac NM exams in prior 12 months: This patient has received [address] and 0 known cardiac nuclear medicine studies in the 12 months prior to the current study. COMPARISON: CR XR CHEST 2V 23/04/2022 11:30 FINDINGS: Tubes, catheters and devices: Pacemaker leads are noted. Lungs: Bilateral apical scarring. There is a 2 mm left lower lobe pulmonary nodule image 67 series 3. Pleural spaces: Unremarkable. No pneumothorax. No pleural effusion. Heart: Cardiomegaly. Coronary arteries: Coronary artery calcifications. Mediastinal space: Bowel wall thickening of the mid to distal esophagus. Lymph nodes: Partially imaged left supraclavicular lymphadenopathy. Vasculature: The aorta demonstrates moderate atherosclerotic disease. Enlarged pulmonary arteries likely represent chronic pulmonary arterial hypertension. Spleen: Splenomegaly. Kidneys and ureters: Peripherally calcified exophytic right renal lesion measuring 3.4 cm image 270 series 3 is of indeterminate significance. Bones/joints: Unremarkable. No acute fracture. Soft tissues: Unremarkable. Other findings: Stigmata of old granulomatous disease. IMPRESSION: 1. Bowel wall thickening of the mid to distal esophagus. Please correlate for evidence of esophagitis. Consider endoscopy to exclude malignancy as clinically warranted. 2. Partially imaged left supraclavicular lymphadenopathy. Please see separate report for details of abnormalities in the neck. 3. There is a 2 mm left lower lobe pulmonary nodule image 67 series 3. Fleischner Society follow up recommendations for incidental nodules are not indicated. Follow up per the patient's medical condition. 4. Peripherally calcified exophytic right renal lesion measuring 3.4 cm image 270 series 3 is of indeterminate significance. If not previously performed, ultrasound is recommended to exclude renal cell carcinoma.
--- NOTE | 2023-01-15 13:25 | CT_ITS ---
PROCEDURE INFORMATION: Exam: CT Neck Without Contrast Exam date and time: 01/15/2023 4:30 PM Age: 82 years old Clinical indication: Other: Left neck mass and weight loss TECHNIQUE: Imaging protocol: Computed tomography of the neck without contrast. Radiation optimization: All CT scans at this facility use at least one of these dose optimization techniques: automated exposure control; mA and/or kV adjustment per patient size (includes targeted exams where dose is matched to clinical indication); or iterative reconstruction. REPORTING DATA: Count of CT and Cardiac NM exams in prior 12 months: This patient has received [address] and 0 known cardiac nuclear medicine studies in the 12 months prior to the current study. COMPARISON: CR XR CHEST 2V 23/04/2022 11:30 FINDINGS: Orbital cavities: Status post bilateral cataract surgery. Pharynx: Unremarkable. No significant tonsillar enlargement. Larynx: Unremarkable. Epiglottis is normal. Prevertebral and retropharyngeal spaces: Unremarkable. Salivary glands: Normal. Glands are normal in size. Thyroid: Normal. No enlarged or calcified nodules. Lymph nodes: Left-sided cervical lymphadenopathy. For follow-up purposes, examples include: Left level-II lymph node conglomerate measuring 2.4 cm in short axis image 57 series 3, level 3 lymph node measuring 12 mm in short axis image 65 series 3, level 5 lymph node image 76 series 3 measuring 8 mm in short axis, and level 3 lymph node measuring 8 mm in short axis image 69 series 3. There is infiltration of the fat surrounding the enlarged left cervical lymph nodes. Trachea: Visualized trachea is unremarkable. Lungs: Unremarkable as visualized. Bones/joints: Multilevel degenerative changes of the cervical spine producing multiple levels of mild and moderate spinal canal stenosis. Soft tissues: The left sternocleidomastoid and scalene muscles are thickened. IMPRESSION: 1. The left sternocleidomastoid and scalene muscles are thickened. Differential considerations would include malignancy such as lymphoma versus infectious myositis, favor malignancy/lymphoma. 2. Left-sided cervical lymphadenopathy with infiltration of the surrounding fat planes. This could represent metastatic disease/lymphoma with extracapsular spread or lymphadenitis. Consider ultrasound guided biopsy.
[2023-01-15 13:39] VITALS: BP 137/73; PULSE 63; RESP 18; TEMP 36.8; O2SAT 99
[2023-01-15 13:40] VITALS: BMI 30.8
[2023-01-15 14:01] LABS: Alanine Aminotransferase 12 U/L (12-78); Albumin Level 3.4 g/dl (3.5-5.0); Albumin/Globulin Ratio 1.3 (1.1-1.8); Alkaline Phosphatase 53 U/L (38-126); Anion Gap 14.8 mEq/L (5-15); Aspartate Amino Transferase 16 U/L (17-59); Blood Urea Nitrogen 49 mg/dl (9-20); Calcium 8.5 mg/dl (8.4-10.2); Carbon Dioxide 22 mmol/L (22.0-30.0); Chloride 107 mmol/L (98-107); Creatinine Clearance Estimated 33 mL/min (50-200); Estimated Glomerular Filt Rate 25 ml/min (>60); GFR (African American) 30 ML/MIN (>60); Globulin 2.7 g/dL (1.3-3.2); Glucose 111 mg/dl (74-100); Potassium 4.8 mmoL/L (3.5-5.1); Sodium 139 mmol/L (136-145); Total Protein,Serum 6.1 g/dl (6.3-8.2)
[2023-01-15 14:02] LABS: Bilirubin,Total 0.1 mg/dl (0.2-1.3); Lactic Acid < 0.5 mmol/L (0.7-2.1)
--- NOTE | 2023-01-15 14:06 | HMH.ITSTN ---
called and asked for patient status for CT. Nurse stated they are trying to get an IV and will let us know when patient is ready.
[2023-01-15 14:14] LABS: Basophils % 0.4 % (0.1-2.0); Eosinophils # 0.1 K/mm3 (0.0-0.4); Eosinophils % 1.5 % (0.1-12.0); Hematocrit 27.7 % (42.0-52.0); Hemoglobin 8.4 g/dL (14.1-18.0); Lymphocytes # 1.5 K/mm3 (0.7-4.5); Lymphocytes % 41.6 % (10-50); Mean Corpuscular HGB Conc 30.2 g/dL (31.8-35.4); Mean Corpuscular Hemoglobin 27.9 pg (27.0-31.2); Mean Corpuscular Volume 92.5 fl (80-94); Monocytes # 0.2 K/mm3 (0.1-1.0); Monocytes % 6.9 % (1.7-9.3); Neutrophils # 1.7 K/mm3 (1.8-7.8); Neutrophils % 49.5 % (37.0-80.0); Platelet Count 221 K/mm3 (142-424); Red Blood Count 2.99 M/mm3 (4.60-6.20); Red Cell Distribution Width 14.3 % (11.5-17.5); White Blood Count 3.5 K/mm3 (4.8-10.8)
--- NOTE | 2023-01-15 14:43 | EXP.ENTCONS ---
History of Present Illness *Admission Date: 01/15/23 *Reason for visit:: Left neck mass *History of present illness: Patient and present in room. Patient states approximately 6 days ago he broke out in blisters on his mouth and tongue. He states this lasted approximately 1 day, and when he woke up the next morning he had a swollen area to the left neck. He states this has began getting worse each day. He reports the pain #8 out of 1-10 pain scale. [facility] Disclaimer: The information contained in this section may have been updated after the patient was seen, as this information can be updated by other users. Medical History (Updated 01/15/23 @ 14:49 by Jeanna Schuster APRN) Anxiety Arthritis Atherosclerosis Atrial fibrillation CHF (congestive heart failure) Chronic kidney disease Chronic pain syndrome COPD (chronic obstructive pulmonary disease) Diabetes mellitus, type 2 GERD (gastroesophageal reflux disease) Hernia History of cataract History of stroke Hypertension Iron deficiency anemia Mass of left side of neck Obstructive sleep apnea Osteoarthritis Osteoporosis Pacemaker Skin cancer Sleep apnea Urinary incontinence Surgical History History of ankle surgery Previous back surgery Family History Other Family history of acute congestive heart failure Maternal family history of cancer Social History Smoking Status: Never smoker alcohol intake: never current occupational status: retired Travel in the last 8 weeks: None Review of Systems Constitutional Constitutional: Reports system reviewed and no additional complaints, except as documented Eyes Eyes: Reports system reviewed and no additional complaints, except as documented ENT Ears, Nose, Mouth, and Throat: Reports system reviewed and no additional complaints, except as documented, Reports as per HPI and Reports other (Reports severe mouth blisters 6 days ago since has resolved) *Cardiovascular Cardiovascular: Reports system reviewed and no additional complaints, except as documented *Respiratory Respiratory: Reports system reviewed and no additional complaints, except as documented *Gastrointestinal Gastrointestinal: Reports system reviewed and no additional complaints, except as documented *Genitourinary Genitourinary: Reports system reviewed and no additional complaints, except as documented and Reports other (Reports in and out caths) Integumentary/Breasts Skin/Breast: Reports other (Reports a lump left neck increasing in size x6 days) Meds Home Medications and Allergies Home Medications Medication Instructions Recorded Confirmed Type aspirin 81 mg tablet,delayed 81 mg PO DAILY [facility] 09/09/19 01/15/23 History release (Adult Aspirin Regimen) calcium carbonate 600 mg-vitamin 1 cap PO BID Supplement 09/09/19 01/15/23 History D3 5 mcg (200 unit) capsule (Calcium 600 + D(3)) doxazosin 2 mg tablet 2 mg PO DAILY benign prostatic 09/09/19 01/15/23 History hyperplasia furosemide 40 mg tablet 20 mg PO DAILY Edema 09/09/19 01/15/23 History gabapentin 100 mg capsule 100 mg PO TID Pain 09/09/19 01/15/23 History hydrocodone 7.5 mg-acetaminophen 1 tab PO Q6H PRN Pain 09/09/19 01/15/23 History 325 mg tablet lovastatin 40 mg tablet 40 mg PO DAILY Cholesterol 09/09/19 01/15/23 History metformin 1,000 mg tablet 500 mg PO BID Diabetes 09/09/19 01/15/23 History pantoprazole 20 mg tablet,delayed 20 mg PO BID acid reflux 09/09/19 01/15/23 History release (Protonix) rivaroxaban 20 mg tablet (Xarelto) 20 mg PO DAILY Congestive heart 09/09/19 01/15/23 History failure/pacemaker famotidine 20 mg tablet 20 mg PO BID acid reflux 05/02/22 01/15/23 History lisinopril 10 mg tablet 10 mg PO DAILY Hypertension 05/02/22 01/15/23 History ipratropium 0.5 mg-albuterol 3 mg 3 ml i
--- NOTE | 2023-01-15 15:20 | ECG_ITS ---
APPROVED REPORT Exam: Resting ECG HR:72 bpm ECG Measurements Heart Rate 72 AXES DE 163 P 68 QRSd 94 QRS 61 QT 355 T 57 QTc 379 Conclusion SINUS RHYTHM NORMAL ECG UNCONFIRMED REPORT Electronically signed by : Melvin Navas MD 01/15/2023 20:01:28
[2023-01-15 16:00] VITALS: BP 152/78; PULSE 69; RESP 16; TEMP 36.9; O2SAT 98
--- NOTE | 2023-01-15 16:52 | EXP.HP ---
History of Present Illness *Admission Date: 01/15/23 *Reason for visit:: Neck mass and weight loss. *History of present illness: Mr. Loya presented to my office today with a chief complaint of weight loss, weakness, unsteadiness and a neck mass that had presented itself over the past 4 to 5 days. He gives a history of some painful blisters that appeared in his mouth about 6 days ago, without a white coating or any kind of distribution of the surface of his face, neck, scalp or external lips, the blisters went away but he noticed a couple of days later he had a painful lump on the left side of his neck. That lump has been present for about 4 to 5 days. His notes that has been very weak over the past month and that he is lost weight and has not been eating or drinking well over the past couple of weeks. In my office scales he has lost 20 pounds in 2 months. His weight has been stable up until his appointment 2 months ago. He denies fevers or chills, denies other lumps or bumps. Denies unusual visual or hearing changes. [facility] Disclaimer: The information contained in this section may have been updated after the patient was seen, as this information can be updated by other users. Medical History (Updated 01/15/23 @ 16:55 by Melvin Navas MD) Anxiety Arthritis Atherosclerosis Atrial fibrillation CHF (congestive heart failure) Chronic kidney disease Chronic pain syndrome COPD (chronic obstructive pulmonary disease) Diabetes mellitus, type 2 GERD (gastroesophageal reflux disease) Hernia History of cataract History of stroke Hypertension Iron deficiency anemia Mass of left side of neck Obstructive sleep apnea Osteoarthritis Osteoporosis Pacemaker Skin cancer Sleep apnea Urinary incontinence Surgical History History of ankle surgery Previous back surgery Family History Other Family history of acute congestive heart failure Maternal family history of cancer Social History Smoking Status: Never smoker alcohol intake: never current occupational status: retired Travel in the last 8 weeks: None Meds Home Medications and Allergies Home Medications Medication Instructions Recorded Confirmed Type aspirin 81 mg tablet,delayed 81 mg PO DAILY [facility] 09/09/19 01/15/23 History release (Adult Aspirin Regimen) calcium carbonate 600 mg-vitamin 1 cap PO BID Supplement 09/09/19 01/15/23 History D3 5 mcg (200 unit) capsule (Calcium 600 + D(3)) doxazosin 2 mg tablet 2 mg PO DAILY benign prostatic 09/09/19 01/15/23 History hyperplasia furosemide 40 mg tablet 20 mg PO DAILY Edema 09/09/19 01/15/23 History gabapentin 100 mg capsule 100 mg PO TID Pain 09/09/19 01/15/23 History hydrocodone 7.5 mg-acetaminophen 1 tab PO Q6H PRN Pain 09/09/19 01/15/23 History 325 mg tablet lovastatin 40 mg tablet 40 mg PO DAILY Cholesterol 09/09/19 01/15/23 History metformin 1,000 mg tablet 500 mg PO BID Diabetes 09/09/19 01/15/23 History pantoprazole 20 mg tablet,delayed 20 mg PO BID acid reflux 09/09/19 01/15/23 History release (Protonix) rivaroxaban 20 mg tablet (Xarelto) 20 mg PO DAILY Congestive heart 09/09/19 01/15/23 History failure/pacemaker famotidine 20 mg tablet 20 mg PO BID acid reflux 05/02/22 01/15/23 History lisinopril 10 mg tablet 10 mg PO DAILY Hypertension 05/02/22 01/15/23 History ipratropium 0.5 mg-albuterol 3 mg 3 ml inhalation BID Breathing 05/04/22 01/15/23 History (2.5 mg base)/3 mL nebulization problems soln bisoprolol fumarate 5 mg tablet 5 mg PO DAILY Hypertension 01/15/23 01/15/23 History fluticasone propionate 50 1 spray intranasal DAILY Allergy 01/15/23 01/15/23 History mcg/actuation nasal symptoms spray,suspension phenazopyridine 200 mg tablet 200 mg PO TID Supplement 01/15/23 01/15/23 History polyet
[2023-01-15 17:41] LABS: Coronavirus 19, PCR Not Detected (NotDetected); Influenza A, PCR Not Detected (NotDetected); Influenza B, PCR Not Detected (NotDetected)
[2023-01-15 17:53] LABS: POC Glucose,Bedside 150 (70-110)
[2023-01-15 20:00] VITALS: BP 137/61; PULSE 66; RESP 18; TEMP 36.9; O2SAT 96
[2023-01-15 20:43] LABS: Microscopic, Urine URINE MICROSCOPIC (MICROSCOPIC)
[2023-01-15 21:01] LABS: POC Glucose,Bedside 132 (70-110)
[2023-01-15 23:17] LABS: Appearance,Urine CLEAR (Clear); Bilirubin,Urine Negative (Negative); Blood, Urine TRACE-I (Negative); Color,Urine YELLOW (Yellow); Glucose,Urine (UA) Negative (Negative); Ketones,Urine Negative (Negative); Leukocyte Esterase,Urine Negative (Negative); Nitrate,Urine Negative (Negative); PH,Urine 5.5 (5.0-8.5); Protein,Urine TRACE (Negative); Urobilinogen,Urine 0.2 EU/dl (0.2)
[2023-01-15 23:36] LABS: Bacteria,Urine Trace /lpf; WBC,Urine Occasional #/hpf (0-3)
[2023-01-16 04:00] VITALS: BP 145/71; PULSE 69; RESP 22; TEMP 37.1; O2SAT 96; BMI 30.1
--- NOTE | 2023-01-16 05:06 | PC.NURSE ---
Pt has slept well t/o shift. c/o a KRISHNAN and was given PRN Tylenol. No other complaints voiced. Torres in place draining clear yellow urine. Pt has been NPO since midnight. Call light within reach.
--- NOTE | 2023-01-16 05:23 | PC.NURSE ---
Pt. has a necklace, watch and wedding band in a denture cup in the back pocket of his bluejeans per his request.
[2023-01-16 08:00] VITALS: BP 152/78; PULSE 67; RESP 18; TEMP 36.7; O2SAT 98
--- NOTE | 2023-01-16 08:33 | HMH.PHAINT1 ---
Pharmacy Intervention Comments: MEDICATION RECONCILIATION COMPLETED USING EXTERNAL FILL HISTORY FROM OUTSIDE PHARMACY
--- NOTE | 2023-01-16 08:40 | EXP.ACUTE.PN ---
Subjective *Date: 01/16/23 *Time: 08:40 Interval history: Patient feels about the same, did eat some supper last night. ENT nurse practitioner saw patient yesterday and apparently Dr. Land has plans to do an FNA evaluation today on his significant lymphadenitis. I reviewed CAT scans with patient and today. Medical Exam Vital signs and Labs for Last 24 Hours: Vital Signs Temp Pulse Resp BP Pulse Ox 01/16/23 08:00 98.1 F 67 18 152/78 H 98 01/16/23 04:00 98.7 F 69 22 145/71 H 96 01/15/23 20:00 98.5 F 66 18 137/61 96 01/15/23 16:00 98.5 F 69 16 152/78 H 98 01/15/23 13:39 98.3 F 63 18 137/73 99 Intake and Output 01/15/23 01/16/23 01/16/23 19:59 03:59 11:59 Intake Total 240 / 240 Output Total 550 / 1700 1150 / 1700 Balance -310 / -1460 -1150 / -1460 Intake: Intake, Oral Amount 240 / 240 Output: Output, Urine Amount 550 / 1700 1150 / 1700 Other: Number of Unmeasured Voids 0 0 Weight 227 lb 5 oz 222 lb 4.8 oz Patient Weight 01/16/23 11:59 Weight 222 lb 4.8 oz Laboratory Results - last 24 hr 01/15/23 13:40: WBC 3.5 L, RBC 2.99 L, Hgb 8.4 L, Hct 27.7 L, MCV 92.5, MCH 27.9, MCHC 30.2 L, RDW 14.3, Plt Count 221, MPV 8.0, Neut % (Auto) 49.5, Lymph % (Auto) 41.6, [place] % (Auto) 6.9, Eos % (Auto) 1.5, Baso % (Auto) 0.4, Neut # (Auto) 1.7 L, Lymph # (Auto) 1.5, [place] # (Auto) 0.2, Eos # (Auto) 0.1, Baso # (Auto) 0.0 01/15/23 13:40: Sodium 139, Potassium 4.8, Chloride 107, Carbon Dioxide 22, Anion Gap 14.8, BUN 49 H, Creatinine 2.50 H, Estimated Creat Clear 33, Estimated GFR 25 L, Est GFR ( Amer) 30 L, Glucose 111 H, Calcium 8.5, Total Bilirubin 0.1 L, AST 16 L, ALT 12, Alkaline Phosphatase 53, Total Protein 6.1 L, Albumin 3.4 L, Globulin 2.7, Albumin/Globulin Ratio 1.3 01/15/23 13:40: Lactate < 0.5 L 01/15/23 14:28: SARS-CoV-2 (PCR) Not detected, Influenza A Untype (PCR) Not detected, Influenza Type B (PCR) Not detected 01/15/23 17:46: POC Glucose 150 H 01/15/23 18:42: Urine Color Yellow, Urine Appearance Clear, Urine pH 5.5, Ur Specific [place] 1.020, Urine Protein Trace, Urine Glucose (UA) Negative, Urine Ketones Negative, Urine Blood Trace-i, Urine Nitrate Negative, Urine Bilirubin Negative, Urine Urobilinogen 0.2, Ur Leukocyte Esterase Negative, Urine RBC 5-10, Urine WBC Occasional, Urine Bacteria Trace 01/15/23 20:45: POC Glucose 132 H I & O for Labs for Last 24 Hours: Intake & Output 01/13/23 01/14/23 01/15/23 01/16/23 11:59 11:59 11:59 11:59 Intake Total 240 / 240 Output Total 1700 / 1700 Balance -1460 / -1460 Weight 222 lb 4.8 oz Comment:: Pleasant, talkative, alert, neck mass unchanged. No spreading over marked area from yesterday. No redness. Still slightly slightly tender. Lungs have good air movement, heart rate regular. Murmur as previously noted. Abdomen soft. Torres catheter draining clear yellow urine. Assessment and Plan *Assessment and plan (1) Mass of left side of neck: Status: Acute Category: Medical Code(s): R22.1 - Localized swelling, mass and lump, neck (2) Weight loss: Status: Acute Category: Medical Code(s): R63.4 - Abnormal weight loss (3) Chronic diastolic CHF (congestive heart failure): Status: Acute Category: Medical Code(s): I50.32 - Chronic diastolic (congestive) heart failure (4) Chronic kidney disease: Status: Acute Category: Medical Code(s): N18.9 - Chronic kidney disease, unspecified (5) Anemia, chronic disease: Status: Acute Category: Medical Code(s): D63.8 - Anemia in other chronic diseases classified elsewhere (6) Acute kidney injury: Status: Acute Category: Medical Code(s): N17.9 - Acute kidney failure, unspecified (7) Acute retention of urine: Status: Acute Category: Medical Code(s): R33.8 - Other retention of urine (8) Acute UTI: Status:
--- NOTE | 2023-01-16 10:54 | EXP.ENTCONS ---
History of Present Illness *Admission Date: 01/15/23 *History of present illness: Mr. Loya presented to my office today with a chief complaint of weight loss, weakness, unsteadiness and a neck mass that had presented itself over the past 4 to 5 days. He gives a history of some painful blisters that appeared in his mouth about 6 days ago, without a white coating or any kind of distribution of the surface of his face, neck, scalp or external lips, the blisters went away but he noticed a couple of days later he had a painful lump on the left side of his neck. That lump has been present for about 4 to 5 days. His notes that has been very weak over the past month and that he is lost weight and has not been eating or drinking well over the past couple of weeks. In my office scales he has lost 20 pounds in 2 months. His weight has been stable up until his appointment 2 months ago. He denies fevers or chills, denies other lumps or bumps. Denies unusual visual or hearing changes. He denies hoarseness, dysphagia, airway difficulties, or associated fevers. He has unexplained weight loss [facility] Disclaimer: The information contained in this section may have been updated after the patient was seen, as this information can be updated by other users. Medical History (Updated 01/15/23 @ 16:55 by Melvin Navas MD) Anxiety Arthritis Atherosclerosis Atrial fibrillation CHF (congestive heart failure) Chronic kidney disease Chronic pain syndrome COPD (chronic obstructive pulmonary disease) Diabetes mellitus, type 2 GERD (gastroesophageal reflux disease) Hernia History of cataract History of stroke Hypertension Iron deficiency anemia Mass of left side of neck Obstructive sleep apnea Osteoarthritis Osteoporosis Pacemaker Skin cancer Sleep apnea Urinary incontinence Surgical History History of ankle surgery Previous back surgery Family History Other Family history of acute congestive heart failure Maternal family history of cancer Social History (Updated 01/15/23 @ 22:31 by Flor Valdes RN) Smoking Status: Never smoker alcohol intake: never current occupational status: retired Travel in the last 8 weeks: None Meds Home Medications and Allergies Home Medications Medication Instructions Recorded Confirmed Type aspirin 81 mg tablet,delayed 81 mg PO DAILY heart health 09/09/19 01/15/23 History release (Adult Aspirin Regimen) calcium carbonate 600 mg-vitamin 1 cap PO BID Supplement 09/09/19 01/15/23 History D3 5 mcg (200 unit) capsule (Calcium 600 + D(3)) doxazosin 2 mg tablet 2 mg PO DAILY Prostate 09/09/19 01/15/23 History furosemide 40 mg tablet 20 mg PO DAILY Fluid 09/09/19 01/15/23 History hydrocodone 7.5 mg-acetaminophen 1 tab PO Q6H PRN Pain 09/09/19 01/15/23 History 325 mg tablet lovastatin 40 mg tablet 40 mg PO DAILY Cholesterol 09/09/19 01/15/23 History metformin 1,000 mg tablet 500 mg PO DAILY Diabetes 09/09/19 01/16/23 History pantoprazole 20 mg tablet,delayed 20 mg PO BID Acid reflux 09/09/19 01/15/23 History release (Protonix) rivaroxaban 20 mg tablet (Xarelto) 20 mg PO DAILY Congestive heart 09/09/19 01/15/23 History failure/pacemaker famotidine 20 mg tablet 20 mg PO BID Acid reflux 05/02/22 01/15/23 History lisinopril 10 mg tablet 10 mg PO DAILY High blood pressure 05/02/22 01/15/23 History ipratropium 0.5 mg-albuterol 3 mg 3 ml inhalation BID Breathing 05/04/22 01/15/23 History (2.5 mg base)/3 mL nebulization problems soln bisoprolol fumarate 5 mg tablet 5 mg PO DAILY High blood pressure 01/15/23 01/15/23 History fluticasone propionate 50 1 spray intranasal DAILY Allergy 01/15/23 01/15/23 History mcg/actuation nasal symptoms spray,suspension polyethylene glycol 3350 17 gram 17 g PO NEEDED PRN Constipation 01/15/23 01/15/23 History oral powder pa
--- NOTE | 2023-01-16 11:24 | HMH.OTEV ---
OT Inpatient Evaluation Rehab OT IP Evaluation Start: 01/16/23 08:40 Freq: ONCE Status: Active Protocol: Document 01/16/23 11:16 SKYLA (Rec: 01/16/23 11:24 [facility] [id number]) Rehab OT IP Assessment Subjective History Pt oriented x 3 on arrival. Pt agreeable to engage in therapy evaluation. Pt was admitted directly from PCP office on 01/15/23 due to neck mass and weight loss. Prior to being in the hospital, pt lived at home with his . Normally, pt is able to complete all ADLs and IADLs independently. Pt does use a cane during functional transfers. Pt reports he was still driving. Family does check on him often and they have a cleaning lady that comes once a week. Pt has a past medical history of: Anxiety Arthritis Atherosclerosis Atrial fibrillation CHF (congestive heart failure) Chronic kidney disease Chronic pain syndrome COPD (chronic obstructive pulmonary disease) Diabetes mellitus, type 2 GERD (gastroesophageal reflux disease) Hernia History of cataract History of stroke Hypertension Iron deficiency anemia Mass of left side of neck Obstructive sleep apnea Osteoarthritis Osteoporosis Pacemaker Skin cancer Sleep apnea Urinary incontinence Subjective I don't feel bad. Objective Patient Orientation Person,Place,Birthday Upper Extremity Gross ROM WFL Bed Mobility bed mobility-scooting,bed mobility - supine/sit,bed mobility - rolling Assi
--- NOTE | 2023-01-16 11:42 | HMH.PTEV ---
Physical Therapy Evaluation Rehab PT IP Evaluation Start: 01/16/23 08:40 Freq: ONCE Status: Active Protocol: Document 01/16/23 09:50 [place] (Rec: 01/16/23 11:42 PHORNE [id number]) Subjective/History History History 82 yowm adm to [facility] with 2 wk insidious onset of L side neck mass. He reports he lives with his spouse, 1-2 steps to enter the home, and he generally ambulates short distance with quad cane. His typically assist him with some of his ADLs. CT scan of neck shows, Left-sided cervical lymphadenopathy with infiltration of the surrounding fat planes. Subjective Subjective He reports feeling sore around the L side of his neck. Rehab PT IP Eval Objective Appearance Patient Behavior Appropriate Patient Orientation Person,Place,Time Difficulty following instructions none Speech Pattern Clear Ambulation Patient Able to Ambulate Yes Ambulation Observation IP General Gait Pattern Observation Wide Based Gait Ambulation Distance (feet) 50 Ambulation Assistive Device Large Base Quad Cane Ambulation Ability Supervision/Stand by Balance Ability to Arise Able, uses arms to help Sitting Balance Steady, safe Standing Balance Steady, wide stance Dynamic Sitting Balance Ability Good Dynamic Standing Balance Ability Fair Transfers Bed Transfer Ability Contact Guard/Hand Hold Chair Transfer Ability Supervision/Stand by Sit to Stand Bed Transfer Ability Supervision/Stand by Sit to Stand Chair Transfer Ability Supervision/Stand by ROM All Extremities PT ROM Status WFL MMT All Extremities PT MMT WFL Rehab PT IP prob,goals,plan Problems Date of Evaluation: 01/16/23 Discharge Plan PT Discharge Plan Pt currently appears to be appropriate to return home with spouse assistance once medically stable for d/c. G -code Required No Eval Complexity Eval Charge Codes 62232 - High Complexity PHYSICIAN CERTIFICATION: I certify the specified therapy services for Wander Sahu are required, authorized, and reviewed every 30 days.
--- NOTE | 2023-01-16 13:35 | EXP.DC.SUM ---
General Admission date:: 01/15/23 Discharge date: 01/16/23 HPI HPI HPI: Mr. Loya presented to my office today with a chief complaint of weight loss, weakness, unsteadiness and a neck mass that had presented itself over the past 4 to 5 days. He gives a history of some painful blisters that appeared in his mouth about 6 days ago, without a white coating or any kind of distribution of the surface of his face, neck, scalp or external lips, the blisters went away but he noticed a couple of days later he had a painful lump on the left side of his neck. That lump has been present for about 4 to 5 days. His notes that has been very weak over the past month and that he is lost weight and has not been eating or drinking well over the past couple of weeks. In my office scales he has lost 20 pounds in 2 months. His weight has been stable up until his appointment 2 months ago. He denies fevers or chills, denies other lumps or bumps. Denies unusual visual or hearing changes. He denies hoarseness, dysphagia, airway difficulties, or associated fevers. 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 There was some supraclavicular lymph nodes as well. No evidence of abscess or for infectious changes. ENT was consulted. They felt patient would benefit from FNA biopsy of this lesion given its proximity to great vessels and has high surgical risk. This was scheduled for Saturday, January 18 here at the hospital with interventional radiology. Patient wishes to go home and has been able to eat and drink well. He will be discharged home. Instructed him to not take his Xarelto or aspirin 48 hours before procedure. I will follow him up next week in my office after the procedure. Exam Data for Last 24 hours Vital signs and Labs for Last 24 Hours: Temp Pulse Resp BP Pulse Ox 98.1 F 67 18 152/78 H 98 01/16/23 08:00 01/16/23 08:00 01/16/23 08:00 01/16/23 08:00 01/16/23 08:00 Laboratory Results - last 24 hr 01/15/23 13:40: WBC 3.5 L, RBC 2.99 L, Hgb 8.4 L, Hct 27.7 L, MCV 92.5, MCH 27.9, MCHC 30.2 L, RDW 14.3, Plt Count 221, MPV 8.0, Neut % (Auto) 49.5, Lymph % (Auto) 41.6, [place] % (Auto) 6.9, Eos % (Auto) 1.5, Baso % (Auto) 0.4, Neut # (Auto) 1.7 L, Lymph # (Auto) 1.5, [place] # (Auto) 0.2, Eos # (Auto) 0.1, Baso # (Auto) 0.0 01/15/23 13:40: Sodium 139, Potassium 4.8, Chloride 107, Carbon Dioxide 22, Anion Gap 14.8, BUN 49 H, Creatinine 2.50 H, Estimated Creat Clear 33, Estimated GFR 25 L, Est GFR ( Amer) 30 L, Glucose 111 H, Calcium 8.5, Total Bilirubin 0.1 L, AST 16 L, ALT 12, Alkaline Phosphatase 53, Total Protein 6.1 L, Albumin 3.4 L, Globulin 2.7, Albumin/Globulin Ratio 1.3 01/15/23 13:40: Lactate < 0.5 L 01/15/23 14:28: SARS-CoV-2 (PCR) Not detected, Influenza A Untype (PCR) Not detected, Influenza Type B (PCR) Not detected 01/15/23 17:46: POC Glucose 150 H 01/15/23 18:42: Urine Color Yellow, Urine Appearance Clear, Urine pH 5.5, Ur Specific [place] 1.020, Urine Protein Trace, Urine Glucose (UA) Negative, Urine Ketones Negative, Urine Blood Trace-i, Urine Nitrate Negative, Urine Bilirubin Negative, Urine Urobilinogen 0.2, Ur Leukocyte Esterase Negative, Urine RBC 5-10, Urine WBC Occasional, Urine Bacteria Trace 01/15/23 20:45: POC Glucose 132 H I & O for Last 24 hours: Intake & Output 01/14/23 01/15/23 01/16/23 01/17/23 11:59 11:59 11:59 11:59 Intake Total 240 / 240 480 / 480 Output Total 1700 / 1700 Balance -1460 / -1460 480 / 480 Weight 222 lb 4.8 oz Constitutional Constitutional: no acute distress *Routine HEENT Exam Head: Present normocephalic Eye: Present EOMI and PERRL ENT: Present mucous membranes moist Comments: Significant mass on left neck as described in H&P with 5 x 10 cm irregul
--- NOTE | 2023-01-16 13:49 | HMH.PHAINT1 ---
Pharmacy Intervention Comments: Discharge medication counseling completed. There were no changes to the patient's home med list, but he was told to hold his aspirin and Xarelto until after his procedure on Saturday (restart 01/19). Patient and loved ones verbalized understanding and had no questions.
--- NOTE | 2023-01-17 15:01 | CARE MANAGER ---
Spoke with patient for post-discharge phone interview, no issues noted.
== END 2023-01-16 14:35 | disposition home or self-care (01) ==
PROVIDERS: Admitting Provider Internal Medicine Adolescent Medicine; PCP Internal Medicine Adolescent Medicine; Visit Provider Internal Medicine Adolescent Medicine
DX: I13.0 Hypertensive heart and chronic kidney disease with heart failure and stage 1 through stage 4 chronic kidney disease, or unspecified chronic kidney disease (principal); R22.1 Localized swelling, mass and lump, neck; I88.9 Nonspecific lymphadenitis, unspecified; I50.32 Chronic diastolic (congestive) heart failure; D63.8 Anemia in other chronic diseases classified elsewhere; N17.9 Acute kidney failure, unspecified; R33.8 Other retention of urine; N39.0 Urinary tract infection, site not specified; J44.9 Chronic obstructive pulmonary disease, unspecified; Z79.84 Long term (current) use of oral hypoglycemic drugs; E11.22 Type 2 diabetes mellitus with diabetic chronic kidney disease; Z95.0 Presence of cardiac pacemaker; I48.91 Unspecified atrial fibrillation; N18.9 Chronic kidney disease, unspecified; Z79.899 Other long term (current) drug therapy
CPT/HCPCS: G0378; 36415; 70490; 71250; 80053; 81001; 82962; 83605; 85025; 87040; 87636; 93005; 97163; 97165; C9803; J0696; U0003; U0005

== ENCOUNTER → 2023-01-18 09:35 | Outpatient (CLI) | payer MEDICARE, MEDICAID, SELFPAY ==
--- NOTE | 2023-01-18 | US_ITS ---
FINAL REPORT CLINICAL HISTORY: .PALP AREA LEFT NECK COMPARISON: CT exam of the neck from 01/15/2023 FINDINGS: Ultrasound soft tissues of neck: Ultrasound examination of the soft tissues of the neck reveal a left-sided heterogeneous poorly defined mass deep to the sternocleidomastoid muscle. This mass measures 5.6 x 4.4 cm in size, and is likely clustered lymph nodes. IMPRESSION: 5.6 x 4.4 cm neck mass, left-sided, heterogeneous, poorly defined of mixed echogenicity. These most likely represent clustered nodes that may be either inflammatory or neoplastic in origin. Reviewed, Interpreted and Dictated by Mikal Huggins III, MD Transcribed by Rachel Potter Authenticated and [facility]
--- NOTE | 2023-01-18 09:35 | US_ITS ---
FINAL REPORT CLINICAL HISTORY: FNA LT NECK MASS MARTELL LIRIANO FINDINGS: Ultrasound guided left neck mass biopsy. HISTORY: Left neck mass. PROCEDURE: After informed consent was obtained and a time-out was performed, the patient was prepped and draped in usual sterile fashion over the left neck. Utilizing local anesthesia and sterile technique with a 25-gauge needle, access to lesion was obtained. 6 passes were made. The patient tolerated the procedure well and left the department in good condition. IMPRESSION: Status post ultrasound guided biopsy of a left neck mass without immediate complication. Films reviewed , interpreted and dictated by Dr. Huggins Transcribed by Martell Burns PA-C. Reviewed, Interpreted and Dictated by Mikal Huggins III, MD Transcribed by DEANDRA Sanders Authenticated and [facility]
== END ==
PROVIDERS: PCP Internal Medicine Adolescent Medicine; Visit Provider Internal Medicine Adolescent Medicine
DX: R22.1 Localized swelling, mass and lump, neck (principal)
CPT/HCPCS: 10005; 76536; 88173; 88184; 88185; 88305

== ENCOUNTER 2023-05-15 16:11 | Observation (INO) | payer MEDICARE, MEDICAID, SELFPAY ==
[2023-05-15] VITALS (12 sets, daily range): BP systolic 89–109; BP diastolic 43–57; PULSE 60–76; RESP 18–26; TEMP 36.8–37.9; O2SAT 94–98; BMI 29.8; BMI 29.4
--- NOTE | 2023-05-15 15:58 | ECG_ITS ---
APPROVED REPORT Exam: Resting ECG HR:67 bpm ECG Measurements Heart Rate 67 AXES DE 161 P 63 QRSd 89 QRS 55 QT 373 T 32 QTc 389 Conclusion SINUS RHYTHM NONSPECIFIC ST & T-WAVE ABNORMALITY BORDERLINE ECG UNCONFIRMED REPORT Electronically signed by : Melvin Navas MD 05/18/2023 11:07:13
--- NOTE | 2023-05-15 16:03 | XR_ITS ---
PROCEDURE INFORMATION: Exam: XR Chest Exam date and time: 05/15/2023 4:38 PM Age: 82 years old Clinical indication: Other: Weakness, lightheadedness; Additional info: Weakness, lightheadednes TECHNIQUE: Imaging protocol: Radiologic exam of the chest. Views: 1 view. Total images: 1 COMPARISON: CT CHEST WO CON 01/15/2023 4:36 PM FINDINGS: Tubes, catheters and devices: A pacemaker device is present, its leads in appropriate position. Lungs: Bilateral hyperinflation is present. Atelectatic changes noted within both lung bases. Pleural spaces: Unremarkable. No pleural effusion. No pneumothorax. Heart/Mediastinum: Unremarkable. No cardiomegaly. Bones/joints: The thoracic spine demonstrates mild degenerative changes at multiple levels. IMPRESSION: 1. Bilateral hyperinflation is present. 2. Atelectatic changes noted within both lung bases.
[2023-05-15 16:17] LABS: VBG Base Excess -0.5 mmol/L (-2.4-2.3); VBG HCO3 24.5 mmol/L (23-30); VBG Oxygen Saturation 81.5 % (50-70); VBG PCO2 41.7 mmol/L (35-51); VBG PH 7.39 mmol/L (7.31-7.41); VBG PO2 43.8 mmol/L (28-40); VBG Total CO2 25.8 mmol/L (23-27)
--- NOTE | 2023-05-15 16:23 | PC.NURSE ---
xray at bs
[2023-05-15 16:27] LABS: Basophils % 0.2 % (0.1-2.0); Eosinophils % 0.2 % (0.1-12.0); Hematocrit 27.1 % (42.0-52.0); Lymphocytes # 0.3 K/mm3 (0.7-4.5); Lymphocytes % 9.8 % (10-50); Mean Corpuscular HGB Conc 33.3 g/dL (31.8-35.4); Mean Corpuscular Hemoglobin 30.3 pg (27.0-31.2); Mean Corpuscular Volume 90.9 fl (80-94); Mean Platelet Volume 7.7 fl (7.4-10.4); Monocytes # 0.1 K/mm3 (0.1-1.0); Monocytes % 3.6 % (1.7-9.3); Neutrophils % 86.2 % (37.0-80.0); Platelet Count 137 K/mm3 (142-424); Red Blood Count 2.98 M/mm3 (4.60-6.20); Red Cell Distribution Width 14.5 % (11.5-17.5); White Blood Count 3.5 K/mm3 (4.8-10.8)
[2023-05-15 16:30] LABS: MANUAL DIFFERENTIAL MANUAL DIFFERENTIAL (MANUAL DIFF)
[2023-05-15 16:31] LABS: Alanine Aminotransferase 19 U/L (12-78); Albumin Level 3.7 g/dl (3.5-5.0); Albumin/Globulin Ratio 1.5 (1.1-1.8); Alkaline Phosphatase 49 U/L (38-126); Anion Gap 12.4 mEq/L (5-15); Aspartate Amino Transferase 27 U/L (17-59); Bilirubin,Total 0.3 mg/dl (0.2-1.3); Blood Urea Nitrogen 37 mg/dl (9-20); Calcium 8.9 mg/dl (8.4-10.2); Carbon Dioxide 26 mmol/L (22.0-30.0); Chloride 106 mmol/L (98-107); Creatinine Clearance Estimated 33 mL/min (50-200); Estimated Glomerular Filt Rate 26 ml/min (>60); GFR (African American) 32 ML/MIN (>60); Globulin 2.4 g/dL (1.3-3.2); Glucose 132 mg/dl (74-100); Lactic Acid 1.4 mmol/L (0.7-2.1); Potassium 4.4 mmoL/L (3.5-5.1); Sodium 140 mmol/L (136-145); Total Protein,Serum 6.1 g/dl (6.3-8.2)
[2023-05-15 16:40] LABS: NT Pro Brain Natriuretic Pep. 2510 pg/mL (0-450)
[2023-05-15 16:45] LABS: Troponin I < 0.01 ng/ml (0.00-0.034)
--- NOTE | 2023-05-15 16:58 | PC.NURSE ---
Bladder scanned patient; 39mL. Patient was in and out cathed [employer] REPRESENTATIVE. Will reassess.
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
[2023-05-15 17:07] LABS: Hemoglobin A1C 5.6 % (4.0-6.0)
[2023-05-15 17:18] LABS: Lymphocytes % 11 % (10-50); Monocytes % 1 % (2-9); Neutrophils % 88 % (42-76); Ovalocytes 1+; Platelet Estimate Normal; Total Cells Counted 100
--- NOTE | 2023-05-15 17:59 | PC.NURSE ---
Nereyda is aware of pt bp dropping
--- NOTE | 2023-05-15 18:05 | PC.NURSE ---
Updated family on plan of care. Call light within reach of patient
--- NOTE | 2023-05-15 18:06 | PC.NURSE ---
Pt.'s BP 90/43 MAP 54. Rechecked and position patient in bed. Patient still hypotensive. Fluids initiated. Will continue to monitor V/S.
--- NOTE | 2023-05-15 18:50 | PC.NURSE ---
Patient cleaned up and placed in a gown and warm blankets applied. Family updated on plan of care. Call light within reach of patient.
[2023-05-15 18:52] LABS: Microscopic, Urine URINE MICROSCOPIC (MICROSCOPIC)
[2023-05-15 18:56] LABS: Bilirubin,Urine Negative (Negative); Blood, Urine 3+ (Negative); Color,Urine YELLOW (Yellow); Glucose,Urine (UA) Negative (Negative); Ketones,Urine Negative (Negative); Leukocyte Esterase,Urine 1+ (Negative); Nitrate,Urine Negative (Negative); Protein,Urine 2+ (Negative); Specific Gravity, Urine 1.025 (1.005-1.030); Urobilinogen,Urine 0.2 EU/dl (0.2)
[2023-05-15 19:03] LABS: Appearance,Urine Slightly Cloudy (Clear)
[2023-05-15 19:18] LABS: Squamous Epithelial Cell,Urine Occasional #/hpf (0-5)
--- NOTE | 2023-05-15 19:35 | PC.NURSE ---
first line supervisor notified of admission
--- NOTE | 2023-05-15 19:54 | PC.NURSE ---
rounded on patient.
--- NOTE | 2023-05-15 20:03 | PC.NURSE ---
Report called to Luis Carlos Heard RN; 2nd floor here for transport
--- NOTE | 2023-05-15 20:09 | PC.NURSE ---
Patient arrived to floor via stretcher at 20:05.
[2023-05-15 20:20] LABS: Troponin I 0.02 ng/ml (0.00-0.034)
[2023-05-15 21:38] LABS: POC Glucose,Bedside 186 (70-110)
--- NOTE | 2023-05-15 23:33 | PC.NURSE ---
2200 - LFA IV infiltrated, 20g RFA placed. 2310 - Bladder scanned patient, scanned volume of 50ml, no further action at this time. Sheba Méndez from ED reports patients stated he is in and out cathed 4-5 times a day, and the had just in and out cathed him shortly before arriving to the ED.
[2023-05-16] VITALS (8 sets, daily range): BP systolic 99–118; BP diastolic 48–61; PULSE 60–71; RESP 17–18; TEMP 36.6–37.1; O2SAT 94–100; BMI 29.4
--- NOTE | 2023-05-16 05:45 | PC.NURSE ---
pt states he caths every morning at 5AM - notified Marycruz of pt request and bladder scan results of 171 ml @ 0520 - marycruz stated to wait for Yosef to do rounding for plan
--- NOTE | 2023-05-16 08:04 | PC.NURSE ---
Morning round on pt complete. whiteboard updated. no pt requests at this time.
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
[2023-05-16 09:25] LABS: Anion Gap 9.8 mEq/L (5-15); Blood Urea Nitrogen 45 mg/dl (9-20); Calcium 8.3 mg/dl (8.4-10.2); Carbon Dioxide 27 mmol/L (22.0-30.0); Chloride 106 mmol/L (98-107); Creatinine Clearance Estimated 29 mL/min (50-200); Estimated Glomerular Filt Rate 23 ml/min (>60); GFR (African American) 28 ML/MIN (>60); Glucose 129 mg/dl (74-100); Potassium 4.8 mmoL/L (3.5-5.1); Sodium 138 mmol/L (136-145)
--- NOTE | 2023-05-16 09:30 | PC.NURSE ---
Straight cathed patient with 500mls of cloudy, yellow urine out; aseptic technique maintained.
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
[2023-05-16 10:03] LABS: POC Glucose,Bedside 152 (70-110)
--- NOTE | 2023-05-16 11:08 | PC.NURSE ---
COURTESY NOTE: rounded on pt, pt denied use of any assistance at this time. call light within reach.
--- NOTE | 2023-05-16 11:47 | HMH.PTEV ---
Physical Therapy Evaluation Rehab PT IP Evaluation Start: 05/16/23 08:24 Freq: ONCE Status: Active Protocol: Document 05/16/23 11:41 PHORROYAL (Rec: 05/16/23 11:47 PHORNE [id number]) Subjective/History History History 82 yowm adm to [facility] with sepsis . PMH of CHF, CVA, DM, CKD. He reports he lives with his . He is generally independent with all mobility and ADLs using a cane for ambulation. He reports he typically has to self-cath for urination at home. Subjective Subjective Currently no c/o other than needing to cath himself. New diagnosis of cancer in past 12 No months? Rehab PT IP Eval Objective Appearance Patient Behavior Appropriate Patient Orientation Person,Place,Time Difficulty following instructions none Speech Pattern Clear Ambulation Patient Able to Ambulate Yes Ambulation Observation IP General Gait Pattern Observation Shuffling Step Ambulation Distance (feet) 20 Ambulation Assistive Device None Ambulation Ability Contact Guard/Hand Hold Balance Ability to Arise Able, uses arms to help Sitting Balance Steady, safe Standing Balance Unsteady Dynamic Sitting Balance Ability Good Dynamic Standing Balance Ability Fair Transfers Bed Transfer Ability Contact Guard/Hand Hold Chair Transfer Ability Contact Guard/Hand Hold Sit to Stand Bed Transfer Ability Contact Guard/Hand Hold Sit to Stand Chair Transfer Ability Contact Guard/Hand Hold Rehab PT IP prob,goals,plan Problems Date of Evaluation: 05/16/23 PT IP Problems Bed Mobility,Transfers,Gait Rehab Potential Rehab Potential Good Plan PT Intervention Plan Bed Mobility,Transfers,Gait, Therapeutic Exercise PT Plan Frequency Daily Duration LOS Discharge Goals Bed Transfer Ability Supervision/Stand by Sit to Stand Chair Transfer Ability Supervision/Stand by Ambulation Assistive Device Straight Cane Ambulation Distance (feet) 40 Discharge Plan PT Discharge Plan Pt is currently most appropriate to return home once medically stable for d/c. Eval Complexity Eval Charge Codes 58089 - High Complexity PHYSICIAN CERTIFICATION: I certify the specified therapy services for Wander Sahu are required, authorized, and reviewe
[2023-05-16 16:07] LABS: POC Glucose,Bedside 121 (70-110)
--- NOTE | 2023-05-16 16:16 | PC.NURSE ---
COURTESY NOTE: rounded on pt. pt has no requests at this time.
--- NOTE | 2023-05-16 18:13 | PC.NURSE ---
COURTESY TECH: rounded on pt after dinner. pt denies any assistance at this time.
[2023-05-16 20:07] LABS: POC Glucose,Bedside 149 (70-110)
--- NOTE | 2023-05-16 23:05 | PC.NURSE ---
straight cathed patient with 500cc of yellow urine out. Aseptic technique used. pt tolerated well
--- NOTE | 2023-05-17 03:30 | PC.NURSE ---
straight cathed patient with 450ccs of yellow urine out. pt tolerated well
[2023-05-17 04:00] VITALS: BP 132/72; PULSE 74; RESP 18; TEMP 36.8; O2SAT 99; BMI 30.6
[2023-05-17 05:34] LABS: POC Glucose,Bedside 114 (70-110)
[2023-05-17 06:10] VITALS: PULSE 74; PULSE 75; O2SAT 98
[2023-05-17 06:38] LABS: Basophils % 0.1 % (0.1-2.0); Eosinophils % 0.6 % (0.1-12.0); Hematocrit 25.6 % (42.0-52.0); Hemoglobin 8.2 g/dL (14.1-18.0); Lymphocytes # 1.4 K/mm3 (0.7-4.5); Lymphocytes % 32.2 % (10-50); Mean Corpuscular HGB Conc 32.2 g/dL (31.8-35.4); Mean Corpuscular Hemoglobin 29.2 pg (27.0-31.2); Mean Corpuscular Volume 90.8 fl (80-94); Mean Platelet Volume 8.2 fl (7.4-10.4); Monocytes # 0.3 K/mm3 (0.1-1.0); Neutrophils # 2.7 K/mm3 (1.8-7.8); Neutrophils % 61.1 % (37.0-80.0); Platelet Count 131 K/mm3 (142-424); Red Blood Count 2.82 M/mm3 (4.60-6.20); Red Cell Distribution Width 14.7 % (11.5-17.5); White Blood Count 4.5 K/mm3 (4.8-10.8)
[2023-05-17 06:47] LABS: Chloride 108 mmol/L (98-107); Potassium 4.4 mmoL/L (3.5-5.1); Sodium 137 mmol/L (136-145)
[2023-05-17 06:50] LABS: Anion Gap 10.4 mEq/L (5-15); Blood Urea Nitrogen 39 mg/dl (9-20); Carbon Dioxide 23 mmol/L (22.0-30.0); Creatinine Clearance Estimated 38 mL/min (50-200); Estimated Glomerular Filt Rate 29 ml/min (>60); GFR (African American) 35 ML/MIN (>60); Glucose 117 mg/dl (74-100)
--- NOTE | 2023-05-17 07:31 | PC.NURSE ---
pt called out to be in and out cathed at this time
[2023-05-17 07:41] VITALS: BP 153/74; PULSE 92; RESP 18; TEMP 36.6; O2SAT 98
--- NOTE | 2023-05-17 07:45 | PC.NURSE ---
in and out cathed pt and obtained 700mL yellow urine
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
--- NOTE | 2023-05-17 09:25 | PC.NURSE ---
informed pt that discharge order had been placed and asked pt if had a ride home and pt replied my daughter will be here soon
--- NOTE | 2023-05-22 10:00 | CARE MANAGER ---
Called and spoke with patient regarding recent discharge. Patient stated that he is doing well, has been to see Dr. Navas for his f/u appt. No concerns voiced at time of call.
--- NOTE | 2023-05-22 11:42 | PC.NURSE ---
notified dr. berry of urine culture on worklist. Dr. Berry states no action needed.
== END 2023-05-17 10:41 | disposition home or self-care (01) ==
LOC: ER 16:20 → 2ND 19:52
PROVIDERS: Admitting Provider Family Medicine; Emergency Provider Emergency Medicine; PCP Internal Medicine Adolescent Medicine; Visit Provider Internal Medicine Adolescent Medicine
DX: R41.0 Disorientation, unspecified; N39.0 Urinary tract infection, site not specified; N18.9 Chronic kidney disease, unspecified; I50.32 Chronic diastolic (congestive) heart failure; Z79.899 Other long term (current) drug therapy; Z79.01 Long term (current) use of anticoagulants; I48.91 Unspecified atrial fibrillation; J44.9 Chronic obstructive pulmonary disease, unspecified; I11.0 Hypertensive heart disease with heart failure; N32.0 Bladder-neck obstruction; M40.295 Other kyphosis, thoracolumbar region
CPT/HCPCS: 36415; 71045; 80048; 80053; 81001; 82803; 82962; 83036; 83605; 83880; 84484; 85007; 85025; 87040; 87086; 93005; 94640; 97116; 97163; 97165; 97530; 99285; G0378; J0696

== ENCOUNTER 2025-02-04 13:02 | Outpatient (CLI) | payer MEDICARE, MEDICAID, SELFPAY ==
--- OUTSIDE RECORDS SUMMARY | 2024-11-07 17:30 | XMS_ITS ---
Author Organization [facility] Address [address] [place] [address] Care Team Providers Care Eligibility Analyst Name Role Phone Melvin Navas Primary Care Provider Migration, Provider Unavailable Unavailable Allergies Allergen (clinical drug ingredient) Drug/Non Drug Allergy documented on EMR Reaction Allergy Type Onset Date Status Latex LATEX (uncoded) Unknown Allergy Acti ve oseltamivir Tamiflu dizziness Drug Allergy Activ e Penicillin Unknown Drug Allergy Active REASON FOR VISIT Multum To [facility] Conversion Encounter Medications Medication SIG (Take, Route, Frequency, Duration) Notes Start Date End Date Status Phenazopyridine HCl 200 MG 1 tab(s) orally 3 times a day (after meals); Duration: 2 day(s) 06/07/2022 Active TEST STRIPS AND LANCETS NA FOR BID FSBS TESTING NA TWICE DAILY; Duration: 30 DAYS *Please review for potential replacement for e-prescription and drug interaction check* 03/21/2022 Active GLUCOMETER NA USE FOR BID FSBS TESTING NA TWICE DAILY; Duration: 30 DAYS DX: E11.9 *Please review for potential replacement for e-prescription and drug interaction check* 03/21/2022 Active Flonase Allergy Relief 50 MCG/ACT 2 spray(s) intranasally once a day; Duration: 90 days 08/19/2018 Active Aspirin Low Dose 81 MG TAKE 1 TABLET ODIN RY DAY; Duration: 90 Active OXYGEN 2 LITERS DIRECTED DAILY *Please review for potential replacement for e-prescription and drug interaction check* 08/09/2020 Active Calcium 600 + D 600 MG-200 UNITS 1 TAB(S) ORALLY BID *Please review and pick correct strength-formulat ion from [employer] options. If intended option is not shown, discontinue and re-order from Quick Search* Active Lisinopril 10 MG 1 tab(s) orally once a day; Duration: 90 days Active Verapamil HCl ER 240 MG 1 cap(s) orally once a day; Duration: 90 days Active Pantoprazole Sodium 20 MG 1 tab(s) orally twice a day; Duration: 90 days Active Ipratropium-Albuterol 0.5-2.5 (3) MG/3ML INHALE THE CONTENTS OF 1 VIAL VIA NEBULIZER TWICE DAILY; Duration: 90 days Active Famotidine 20 MG 1 tab(s) orally 2 times a day; Duration: 90 days Active Xarelto 20 MG TAKE 1 TABLET ONE TIME DAILY; Duration: 90 days Active Crestor 5 MG 1 tab(s) orally once a day; Duration: 90 days Active Doxazosin Mesylate 2 MG 1 tab(s) orally once a day; Duration: 90 days Active Advair Diskus 250 MCG-50 MCG 1 PUFF(S) INHALED 2 TIMES A DAY; Duration: 90 DAYS *Please review and pick correct strength-formulat ion from [employer] options. If intended option is not shown, discontinue and re-order from Quick Search* Active busPIRone HCl 15 MG 1 tab(s) orally 2 times a day; Duration: 90 days 06/05/2024 Active Ferrous Sulfate 325 (65 Fe) MG 1 tab(s) orally once a day; Duration: 30 days Active DULoxetine HCl 60 MG 1 cap(s) orally once a day; Duration: 30 days Active HYDROcodone-Acetaminop hen 5-325 MG 1 tab(s) orally every 8 hours; Duration: 30 days 10/22/2024 Active metFORMIN HCl 1000 MG 1/2 tablet orally 2 times a day; Duration: 90 days Active MiraLax - 17 G ORALLY ONCE A DAY PRN; Duration: 90 DAYS *Please review and pick correct strength-formulat ion from [employer] options. If intended option is not shown, discontinue and re-order from Quick Search* Active Gabapentin 100 MG 1 pill orally 3 times a day; Duration: 90 days 03/12/2023 Active TEST STRIPS AND LANCETS NA FOR TWICE A DAY FSBS TESTING NA TWICE DAILY *Please review for potential replacement for e-prescription and drug interaction check* 11/22/2022 Active GLUCOMETER NA USE FOR TWICE A DAY FSBS TESTING NA TWICE DAILY; Duration: 30 DAYS *Please review for potential replacement for e-prescription and drug interaction check* 11/22/2022 Active Encounters Encounter Location Date Provider Diagnosis [facility] [address] [place] [address] 11/07/2024 Provider Migration Anxiety, generalized F41.1 and Spondylosis of lumbar region without myelopathy or radiculopathy M47.816 Assessments Encounter Date Diagnosis (ICD Code) Assessment Notes Treatment Notes Treatment Clinical Notes Section Notes 11/07/2024 Anxiety, generalized (ICD-10 - F41.1) 11/07/2024 Spondylosis of lumbar region without myelopathy or radiculopathy (ICD-10 - M47.816) Plan Of Treatment Medication Medication Name Sig Start Date Stop Date Notes Lisinopril 10 MG 1 tab(s) orally once a day; Duration: 90 days Verapamil HCl ER 240 MG 1 cap(s) orally once a day; Duration: 90 days Pantoprazole Sodium 20 MG 1 tab(s) orally twice a day; Duration: 90 days Ipratropium-Albuterol 0.5-2.5 (3) MG/3ML INHALE THE CONTENTS OF 1 VIAL VIA NEBULIZER TWICE DAILY; Duration: 90 days Famotidine 20 MG 1 tab(s) orally 2 times a day; Duration: 90 days Xarelto 20 MG TAKE 1 TABLET ONE TIME DAILY; Duration: 90 days Crestor 5 MG 1 tab(s) orally once a day; Duration: 90 days Doxazosin Mesylate 2 MG 1 tab(s) orally once a day; Duration: 90 days Advair Diskus 250 MCG-50 MCG 1 PUFF(S) INHALED 2 TIMES A DAY; Duration: 90 DAYS *Please review and pick correct strength-formulation from [employer] options. If intended option is not shown, discontinue and re-order from Quick Search* DULoxetine HCl 60 MG 1 cap(s) orally onc e a day; Duration: 30 days HYDROcodone-Acetaminoph en 5-325 MG 1 tab(s) orally every 8 hours; Duration: 30 days 10/22/2024 Next Appt Details Provider Name:Melvin Navas, 03/23/2025 11:00:00 AM, 2017 [facility], [facility] [address], [place], [address], Progress Notes * Wander BANGURA WDOB: 1 (84 yo M)Acc No.[id number]:11/07/2024 Patient: Wander BURROUGHS Provider: Aye garay Migration :1940 A ge:84 Y S ex:Male Date:11/07/2024 Address:[address] [id number] Pcp:Melvin Navas Subjective: * Chief Complaints: * 1 . Multum To [employer] Conversion Encounter. * Medical History: * Medications: T aking Calcium 600 + D 600 MG-200 UNITS TABLET 1 TAB(S) ORALLY BID , Notes to Pharmacist: *Please review and pick correct strength-formulation from [employer] options. If intended option is not shown, discontinue and re-order from Quick Search*, Taking OXYGEN 2 LITERS NASAL CANNULA DIRECTED DAILY , Notes to Pharmacist: *Please review for potential replacement for e-prescription and drug interaction check*, Taking Aspirin Low Dose 81 MG Tablet Delayed Release TAKE 1 TABLET EVERY DAY , Taking Flonase Allergy Relief 50 MCG/ACT Suspension 2 spray(s) intranasally once a day , Taking GLUCOMETER NA PER INSURANCE COVERAGE USE FOR BID FSBS TESTING NA TWICE DAILY , Notes to Pharmacist: DX: E11.9 *Please review for potential replacement for e-prescription and drug interaction check*, Taking TEST STRIPS AND LANCETS NA PER INSURANCE COVERAGE WITH GLUCOMETER FOR BID FSBS TESTING NA TWICE DAILY , Notes to Pharmacist: *Please review for potential replacement for e-prescription and drug interaction check*, Taking Phenazopyridine HCl 200 MG Tablet 1 tab(s) orally 3 times a day (after meals) , Taking GLUCOMETER NA PER INSURANCE COVERAGE USE FOR TWICE A DAY FSBS TESTING NA TWICE DAILY , Notes to Pharmacist: *Please review for potential replacement for e-prescription and drug interaction check*, Taking TEST STRIPS AND LANCETS NA PER INSURANCE COVERAGE WITH GLUCOMETER FOR TWICE A DAY FSBS TESTING NA TWICE DAILY , Notes to Pharmacist: *Please review for potential replacement for e-prescription and drug interaction check*, Taking Gabapentin 100 MG Capsule 1 pill orally 3 times a day , Taking MiraLax - POWDER FOR RECONSTITUTION 17 G ORALLY ONCE A DAY PRN , Notes to Pharmacist: *Please review and pick correct strength-formulation from [employer] options. If intended option is not shown, discontinue and re-order from Quick Search*, Taking metFORMIN HCl 1000 MG Tablet 1/2 tablet orally 2 times a day , Taking Ferrous Sulfate 325 (65 Fe) MG Tablet 1 tab(s) orally once a day , Taking busPIRone HCl 15 MG Tablet 1 tab(s) orally 2 times a day * Allergies: P enicillin, LATEX, Tamiflu: dizziness - Contraindication. Objective: * Vitals: Assessment: * Assessment: 1. A nxiety, generalized - F41.1 2 . 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 3. O thers Start Xarelto Tablet, 20 MG, TAKE 1 TABLET ONE TIME DAILY, 90 days, 90 Tablet, Refills 1; S tart Doxazosin Mesylate Tablet, 2 MG, 1 tab(s), orally, once a day, 90 days, 90, Refills 1; S tart Verapamil HCl ER Capsule Extended Release 24 Hour, 240 MG, 1 cap(s), orally, once a day, 90 days, 90 Capsule, Refills 1; S tart Advair Diskus POWDER, 250 MCG-50 MCG, 1 PUFF(S), INHALED, 2 TIMES A DAY, 90 DAYS, 180, Refills 1, Notes to Pharmacist: *Please review and pick correct strength-formulation from [employer] options. If intended option is not shown, discontinue and re-order from Quick Search*; S tart Ipratropium-Albuterol Solution, 0.5-2.5 (3) MG/3ML, INHALE THE CONTENTS OF 1 VIAL VIA NEBULIZER TWICE DAILY, 90 days, 540, Refills 1; S tart Lisinopril Tablet, 10 MG, 1 tab(s), orally, once a day, 90 days, 90 Tablet, Refills 1; S tart Pantoprazole Sodium Tablet Delayed Release, 20 MG, 1 tab(s), orally, twice a day, 90 days, 180, Refills 1; S tart Famotidine Tablet, 20 MG, 1 tab(s), orally, 2 times a day, 90 days, 180 Tablet, Refills 1; S tart Crestor Tablet, 5 MG, 1 tab(s), orally, once a day, 90 days, 90 Tablet, Refills 1. * * Electronic signature of Prov ider Migration on 02/04/2025 at 01:04 PM EDT Sign off status: Pending * Provider: Aye garay Migration Date: 0 11/07/2024 Generated for Mana boland/Henny/Nereyda on: 0 02/04/2025 01:04 PM EDT
--- OUTSIDE RECORDS SUMMARY | 2025-01-28 06:30 | XMS_ITS ---
Author Organization [facility] Address [address] [facility] [address] [facility] [address] [place] [address] Care Team Providers Care Drug Enforcement Agent Name Role Phone Yosef Melvin Primary Care Provider Allergies Allergen (clinical drug ingredient) Drug/Non Drug Allergy documented on EMR Reaction Allergy Type Onset Date Status Latex LATEX (uncoded) Unknown Allergy Acti ve oseltamivir Tamiflu dizziness Drug Allergy Activ e Penicillin Unknown Drug Allergy Active Reason For Referral Reason [facility] orthopedic appointment for evaluation to get shots in the knees and hip Diagnosis 1 Primary osteoarthrit is of both knees (M17.0) Referral Organization [facility] Referring Provider First Name Melvin Referring Provider Last Name Yosef Referring Provider Speciality Internal M edicine Referred Organization [facility] Referred Address [address] [place] [address], [place], [place],[address], Referred Provider Specialty Orthopedic S urgery General Notes Lulú Yousif 2024 03:38:56 PM >left a vm with patient and spoke to his daughter about appt. Referral Priority Routine Referral Appointment Date 02/04/2025 REASON FOR VISIT 2 month f/u, [facility] er f/u, S.O.A Medications Medication SIG (Take, Route, Frequency, Duration) Notes Start Date End Date Status HYDROcodone-Acetaminop hen 5-325 MG 1 tab(s) orally every 8 hours; Duration: 30 days 01/22/2025 Active Crestor 5 MG 1 tab(s) orally once a day; Duration: 90 days Active DULoxetine HCl 60 MG 1 cap(s) orally once a day; Duration: 30 days Active Advair Diskus 250 MCG-50 MCG 1 PUFF(S) INHALED 2 TIMES A DAY; Duration: 90 DAYS *Please review and pick correct strength-formulat ion from [employer] options. If intended option is not shown, discontinue and re-order from Quick Search* Active Lisinopril 10 MG 1 tab(s) orally once a day; Duration: 90 days Active Ipratropium-Albuterol 0.5-2.5 (3) MG/3ML INHALE THE CONTENTS OF 1 VIAL VIA NEBULIZER TWICE DAILY; Duration: 90 days Active Famotidine 20 MG 1 tab(s) orally 2 times a day; Duration: 90 days Active Pantoprazole Sodium 20 MG 1 tab(s) orally twice a day; Duration: 90 days Active Doxazosin Mesylate 2 MG 1 tab(s) orally once a day; Duration: 90 days Active Xarelto 20 MG TAKE 1 TABLET ONE TIME DAILY; Duration: 90 days Active Verapamil HCl ER 240 MG 1 cap(s) orally once a day; Duration: 90 days Active busPIRone HCl 15 MG 1 tab(s) orally 2 times a day; Duration: 90 days 06/05/2024 Active Ferrous Sulfate 325 (65 Fe) MG 1 tab(s) orally once a day; Duration: 30 days Active metFORMIN HCl 1000 MG 1/2 tablet orally 2 times a day; Duration: 90 days Active MiraLax - 17 G ORALLY ONCE A DAY PRN; Duration: 90 DAYS *Please review and pick correct strength-formulat ion from [employer] options. If intended option is not shown, [...] check* 11/22/2022 Active GLUCOMETER NA USE FOR BID FSBS TESTING NA TWICE DAILY; Duration: 30 DAYS DX: E11.9 *Please review for potential replacement for e-prescription and drug interaction check* 03/21/2022 Active Flonase Allergy Relief 50 MCG/ACT 2 spray(s) intranasally once a day; Duration: 90 days 08/19/2018 Active Phenazopyridine HCl 200 MG 1 tab(s) orally 3 times a day (after meals); Duration: 2 day(s) 06/07/2022 Active TEST STRIPS AND LANCETS NA FOR BID FSBS TESTING NA TWICE DAILY; Duration: 30 DAYS *Please review for potential replacement for e-prescription and drug interaction check* 03/21/2022 Active Aspirin Low Dose 81 MG TAKE 1 TABLET ODIN RY DAY; Duration: 90 Active Calcium 600 + D 600 MG-200 UNITS 1 TAB(S) ORALLY BID *Please review and pick correct strength-formulat ion from [employer] options. 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 Tolerating pain medicine well. No dose decrease or increase at this point. Has asked for dose increase as before but I declined given his history of syncope and falls when he was on higher dosage in the past. He has done well with this current dosage. 01/28/2025 Essential hypertension (ICD-10 - I10) Blood pressure is doing well, no change in plans 01/28/2025 Chronic diastolic congestive heart failure (ICD-10 - I50.32) Clinically euvolemic. Will get labs in 2 months. 01/28/2025 Type 2 diabetes mellitus with diabetic chronic kidney disease (ICD-10 - E11.22) A1c is under good control, no change in plans 01/28/2025 Stage 3b chronic kidney disease (CKD) (ICD-10 - N18.32) Creatinine stable, continue to avoid NSAIDs. Continue current therapy for pain 01/28/2025 Primary osteoarthritis of both knees (ICD-10 - M17.0) Patient had a history of doing well with shots from previous [facility] orthopedist in his hip and knee. Wishes to be reevaluated for this. I think this is reasonable and we will make referral Plan Of Treatment Treatment Notes Assessment Notes Spondylosis of lumbar region without myelopathy or radiculopathy Overall seems to be stable. Tolerating pain medicine well. No dose decrease or increase at this point. Has asked for dose increase as before but I declined given his history of syncope and falls when he was on higher dosage in the past. He has done well with this current dosage. Essential hypertension Blood pressure is doing well, no change in plans Chronic diastolic congestive heart failu re Clinically euvolemic. Will get labs in 2 months. Type 2 diabetes mellitus wit h diabetic chronic kidney disease A1c is under good control, no change in plans Stage 3b chronic kidney disease (CKD) Creatinine stable, continue to avoid NSAIDs. Continue current therapy for pain Primary osteoarthritis of both knees Angelica tsangnt had a history of doing well with shots from previous [facility] orthopedist in his hip and knee. Wishes to be reevaluated for this. I think this is reasonable and we will make referral Referrals Referral Date Details 01/28/2025 01/28/2025, [facility] orthopedic appointment for evaluation to get shots in the knees and hip, [address] [facility], [place], [address], Next Appt Details Follow Up: 2 Months, Reason: Provider Name:Melvin Navas, 03/23/2025 11:00:00 AM, [address], [address], Progress Notes * Wander BANGURA WDOB: (84 yo M)Acc No.[id number]:01/28/2025 Progress Notes Patient: Wander BURROUGHS Provider: Rosa Navas MD :1940 A ge:84 Y S ex:Male Date:01/28/2025 Address:[address] [id number] Subjective: * Chief Complaints: * 1 . 2 month f/u. 2. [facility] er f/u. 3. S.O.A. * HPI: g en: Wander is here to follow-up his medical problems. Overall feels pretty good. No major changes. Reviewed his lab work from last visit. No recent falls. * Medical History: [facility], Niddm x 4 yrs, Hyperlipidemia, CAD, CHF, NO [place], Pacemaker, COPD, Stopped smoking, 1979, diabetic peripheral neuropathy - on opiate tx.. appropriate UDS 10/23, DVT left lower leg, 2005, Hypertension, Chronic pain, legs, Hearing loss right ear ?? etiology, BPH, DDD, L4-5 surgery, multiple colon pylops, colonoscopy about every 3 years, Dr. Beal. * Surgical History: b ack x3 , rectal , left ankle , pacemaker , skin cancers removed . * Hospitalization/Major Diagno stic Procedure: a peterson , hand, foot, mouth; [facility] 04/2017, [facility]- UTI, anemia 05/02-. * Family History: F ather: , CHF. M other: 52 yrs, cancer. P aternal Grand Father: . P aternal Grand Mother: . M aternal Grand Father: . M aternal Grand Mother: . P aternal uncle: , heart disease. P aternal aunt: . M aternal uncle: . M aternal aunt: . Valeriy mina: alive, oldest daughter- heart disease, diabetes, HTN, HLD. 1 son(s) , 3 daughter(s) . . * Social History: S moking A re you a:: former smoker , How long has it been since you last smoked?: > 10 years. R ecreational drug use: no. Exercise: no. Home smoke detector use: yes. Caffeine: yes, 3-4 tea daily. Living Will: No. Alcohol: no. Travel outside [place]: no. Occupation: retired. * Medications: T aking Calcium 600 + D 600 MG-200 UNITS TABLET 1 TAB(S) ORALLY BID , Notes to Pharmacist: *Please review and pick correct strength-formulation from [employer] options. If intended option is not shown, [...] *Please review and pick correct strength-formulation from [employer] options. If intended option is not shown, discontinue and re-order from Quick Search*, Taking metFORMIN HCl 1000 MG Tablet 1/2 tablet orally 2 times a day , Taking Ferrous Sulfate 325 (65 Fe) MG Tablet 1 tab(s) orally once a day , Taking busPIRone HCl 15 MG Tablet 1 tab(s) orally 2 times a day , Taking Xarelto 20 MG Tablet TAKE 1 TABLET ONE TIME DAILY , Taking Doxazosin Mesylate 2 MG Tablet 1 tab(s) orally once a day , Taking Verapamil HCl ER 240 MG Capsule Extended Release 24 Hour 1 cap(s) orally once a day , Taking Advair Diskus 250 MCG-50 MCG POWDER 1 PUFF(S) INHALED 2 TIMES A DAY , Notes to Pharmacist: *Please review and pick correct strength-formulation from [employer] options. If intended option is not shown, discontinue and re-order from Quick Search*, Taking Ipratropium-Albuterol 0.5-2.5 (3) MG/3ML Solution INHALE THE CONTENTS OF 1 VIAL VIA NEBULIZER TWICE DAILY , Taking Lisinopril 10 MG Tablet 1 tab(s) orally once a day , Taking Pantoprazole Sodium 20 MG Tablet Delayed Release 1 tab(s) orally twice a day , Taking Famotidine 20 MG Tablet 1 tab(s) orally 2 times a day , Taking Crestor 5 MG Tablet 1 tab(s) orally once a day , Taking DULoxetine HCl 60 MG Capsule Delayed Release Particles 1 cap(s) orally once a day , Taking HYDROcodone-Acetaminophen 5-325 MG Tablet 1 tab(s) orally every 8 hours , Discontinued predniSONE 20 MG Tablet 3 tabs orally once a day for two days, then 2 daily for 2 days, then one daily for two days , Discontinued Mupirocin 2 % Ointment 1 tucker applied topically 3 times a day , Medication List reviewed and reconciled with the patient * Allergies: P enicillin, LATEX, Tamiflu: dizziness - Contraindication. Objective: * Vitals: N urse: dw, Pain: 7, Temp: 98, RR: 20, HR: 72, BP: 145/82, Ht: 6 ft 0 in, Wt: 215, BMI:29.16. * Examination: G eneral Examination: General P leasant and Cooperative, NAD on RA,. Oral cavity: M oist membranes. Chest: n ormal shape and expansion. Heart: R egular Rate and Rhythm, no murmur, rubs or gallops. Lungs: L CTAB, No wheezes, crackles or rhonchi, Good air movement,. Abdomen: S oft, NTND. Neurologic Exam: n o focal signs. Skin: w ithout acute rashes. Extremities: S tooped gait, uses his cane. Has significant pain with movement of his right hip and knee. . Psych N ormal Mood/Affect. General Appearance: N AD, pleasant. Assessment: * Assessment: 1. S pondylosis of lumbar region without myelopathy or radiculopathy - M47.816 (Primary) ? 2 . E ssential hypertension - I10 3 . C hronic diastolic congestive heart failure - I50.32 4 . T ype 2 diabetes mellitus with diabetic chronic kidney disease - E11.22 5 . S tage 3b chronic kidney disease (CKD) - N18.32 ? 6 . P rimary osteoarthritis of both knees - M17.0 Plan: * Treatment: 2. E ssential hypertension Notes: Blood pressure is doing well, no change in plans 3. C hronic diastolic congestive heart failure Notes: Clinically euvolemic. Will get labs in 2 months. 4. T ype 2 diabetes mellitus with diabetic chronic kidney disease Notes: A1c is under good control, no change in plans 5. S tage 3b chronic kidney disease (CKD) Notes: Creatinine stable, continue to avoid NSAIDs. Continue current therapy for pain 6. P rimary osteoarthritis of both knees Notes: Patient had a history of doing well with shots from previous [facility] orthopedist in his hip and knee. Wishes to be reevaluated for this. I think this is reasonable and we will make referral Referral To: Reason:[facility] orthopedic appointment for evaluation to get shots in the knees and hip * Follow Up: 2 Months * * Sign off status: Completed true * Provider: Rosa Navas MD Date: 01/28/2025 Generated for Mana boland/Henny/Danayitting on: 02/04/2025 01:04 PM EDT History and Physical Notes * HPI (History of Present Illness) Category Sub-Category Detail Notes Category Not es gen Viramontes is here to follow-up his medical problems. Overall feels pretty good. No major changes. Reviewed his lab work from last visit. No recent falls. Examination Category Sub-Category Detail Notes Category Not es General Examination Heart: Regular Rate and Rhythm, no murmur, rubs or gallops Lungs: LCTAB, No wheezes, c rackles or rhonchi, Good air movement, Abdomen: Soft, NTND Extremities: Stooped gait, uses h is cane. Has significant pain with movement of his right hip and knee. General Appearance: NAD, pleasant Skin: without acute rashes Neurologic Exam: no focal signs Oral cavity: Moist membranes Chest: normal shape and exp ansion General Pleasant and Coopera tive, NAD on RA, Psych Normal Mood/Affect Consultation Request Notes Referral Date Referring Provider Referred Provider Not es 01/28/2025 Melvin Navas [facility] orthopedic appointment for evaluation to get shots in the knees and hip
--- NOTE | 2025-02-04 13:04 | XR_ITS ---
PROCEDURE INFORMATION: Exam: XR Right Knee Exam date and time: 02/04/2025 1:06 PM Age: 84 years old Clinical indication: Pain; Knee; Right; Additional info: Right knee pain TECHNIQUE: Imaging protocol: Radiologic exam of the right knee. Views: 3 views. COMPARISON: No relevant prior studies available. FINDINGS: Bones/joints: No acute fracture. Moderate to severe osteoarthrosis of medial compartment. Mild osteoarthrosis of lateral compartment. Moderate osteoarthrosis of patellofemoral compartment. No dislocation. No significant joint effusion. Several small intra-articular bodies. Soft tissues: Unremarkable. IMPRESSION: No fracture. If pain persists, consider MRI for further evaluation.
--- NOTE | 2025-02-04 13:04 | XR_ITS ---
PROCEDURE INFORMATION: Exam: XR Left Knee Exam date and time: 02/04/2025 1:06 PM Age: 84 years old Clinical indication: Pain; Knee; Left; Additional info: Left knee pain TECHNIQUE: Imaging protocol: Radiologic exam of the left knee. Views: 3 views. COMPARISON: No relevant prior studies available. FINDINGS: Bones/joints: No acute fracture. Mild to moderate osteoarthrosis of medial compartment. [id number]-[id number] osteoarthrosis of patellofemoral compartment. No dislocation. No significant joint effusion. Few possible tiny intra-articular bodies. Chondrocalcinosis. Soft tissues: Unremarkable. IMPRESSION: No fracture. If pain persists, consider MRI for further evaluation.
--- NOTE | 2025-02-04 13:04 | XR_ITS ---
PROCEDURE INFORMATION: Exam: XR Right Hip Exam date and time: 02/04/2025 1:06 PM Age: 84 years old Clinical indication: Hip pain; Right hip; Additional info: Right hip pain TECHNIQUE: Imaging protocol: Radiologic exam of the right hip. Views: 2 or 3 views hip with pelvis when performed. COMPARISON: No relevant prior studies available. FINDINGS: Bones/joints: No acute fracture. Mild degenerative changes of hip joints. Moderate to severe degenerative disc disease within lower lumbar spine. No dislocation. Soft tissues: Unremarkable. IMPRESSION: No fracture. If hip pain persists, consider MRI to exclude occult fracture/internal derangement.
--- OUTSIDE RECORDS SUMMARY | 2025-02-04 13:04 | XMS_ITS | Clinical Summary ---
Author Organization [facility] Address [address] [place] [address] Care Team Providers Care Teacher Lip Reading Name Role Phone Melvin Navas MD Primary Care Provider [phone] Allergies Active Allergy Reactions Criticality Noted Date Comments Latex Rash Low 12/13/2014 Penicillins Hives,Rash Medium 07/30/2011 Oseltamivir Dizziness Low 12/13/2021 Medications calcium carbonate-vitam in D 600-200 MG-UNIT tablet 2 (two) times a day. 5 Active lovastatin (Mevacor) 40 MG tablet Take 1 tablet daily 5 Active rivaroxaban (Xarelto) 20 MG tablet Take 1 tablet daily 5 Active doxazosin (Cardura) 2 MG tablet TAKE 1 TABLET DAILY. 5 Active aspirin 81 MG EC tablet 5 Active busPIRone (Buspar) 15 MG tablet 2 (two) times a day. 5 Active pantoprazole (ProtoNix) 20 MG EC tablet TAKE 1 TABLET DAILY. 5 Active metFORMIN (Glucophage) 1000 MG tablet 1/2 tab twice daily 5 Active HYDROcodone-sugey taminophen (Crete) 7.5-325 MG tablet TAKE 1 TABLET EVERY 6 HOURS NEEDED. 5 Active oxygen (O2) gas Inhale continuously. via nasal canula Active polyethylene glycol (Miralax) 17 g packet Take 17 g by mouth 1 (one) time each day. Active lisinopril 10 MG tablet Take 10 mg by mouth 1 (one) time each day. Active famotidine (Pepcid) 20 MG tablet Take by mouth 2 (two) times a day. Active verapamil ER (Veralan PM) 240 MG 24 hr capsule Take 240 mg by mouth every night. Do not crush or chew. Active fluticasone (Flonase) 50 MCG/ACT nasal spray Administer 1 spray into each nostril 1 (one) time each day. Shake gently. Before first use, prime pump. After use, clean tip and replace cap. Active furosemide (Lasix) 40 MG tablet Take by mouth. 1/2 tab twice daily Active fluticasone-jose meterol (Advair Diskus) 250-50 MCG/DOSE diskus inhaler Inhale 1 puff 2 (two) times a day. Rinse mouth with water after use to reduce aftertaste and incidence of candidiasis. Do not swallow. Active bisoprolol (Zebeta) 5 MG tablet Take by mouth 1 (one) time each day. Active ipratropium-alb uterol (Duo-Neb) 0.5-2.5 mg/3 mL nebulizer solution Take 3 mL by nebulization every 6 (six) hours if needed. Active gabapentin (Neurontin) 100 MG capsule Take 100 mg by mouth 3 (three) times a day. Active Active Problems Problem Noted Date Diagnosed Date CKD (chronic kidney disease) stage 4, GFR 15-29 ml/min 05/07/2022 Iron deficiency anemia 04/30/2022 Family History Medical History Relation Name Comments Heart failure Father Cancer Mother Relation Name Status Comments Father Mother Social History Tobacco Use Types Packs/Day Years Used Date Smoking Tobacco: Former Smokeless Tobacco: Never Tobacco Cessation:Counseling Given: Not Answered Alcohol Use Standard Drinks/Week Comments No 0 (1 standard drink = 0.6 oz pur e alcohol) Sex and Gender Information Value Date Recorded Sex Assigned at Not on file Legal Sex Male 8:19 PM EDT Gender Identity Not on file Sexual Orientation Not on file Last Filed Vital Signs Vital Sign Reading Time Taken Comments Blood Pressure 131/58 04/23/2022 10:33 AM EDT Pulse 66 04/23/2022 10:33 AM EDT Temperature - - Respiratory Rate - - Oxygen Saturation - - Inhaled Oxygen Concentration - - Weight 112 kg (248 lb) 04/23/2022 10:33 AM EDT Height 182.9 cm (6') 02/19/2022 11:03 AM EDT Body Mass Index 33.63 02/19/2022 11:03 AM EDT Plan of Treatment Health Maintenance Due Date Last Done Comments [facility]-Depression Screening 1940 [facility]-Medicare Annual Wellness (AWV) 1940 [facility]-Infant/Child/Adol SDOH Screenings 1940 [facility]- SDOH Screenings 1958 [facility]-Adult SDOH Screenings 1958 [facility]-DTaP,Tdap,and Td Vaccine s (1 - Tdap) 1959 [facility]-Zoster Vaccines (1 of 2) 1990 [facility]-Pneumococcal Vaccine: 50 + Years (2 of 2 - PCV) 11/18/2011 11/17/2010 [facility]-RSV Vaccine: 60+ Years o r (1 - 1-dose 75+ series) 2015 [id number] Vaccine (3 - 2023- season) 2024 06/08/2021, 10/13/2020 [facility]-Influenza Vaccine ([place]as[place] n Ended) 2025 [facility]-Obesity Intervention Completed 04/23/2022 HPV Vaccines Aged Out No longer eligi ble based on patient's age to complete this topic [facility]-HIB Vaccines Aged Out No longer e ligible based on patient's age to complete this topic [facility]-Hepatitis A Vaccines Aged Out No longer eligible based on patient's age to complete this topic [facility]-IPV Vaccines Aged Out No longer e ligible based on patient's age to complete this topic [facility]-Rotavirus Vaccines Aged Out No lo nger eligible based on patient's age to complete this topic Insurance [facility] MEDIC[facility] Care Teams Teacher Lip Reading Relationship Specialty Start Date End Date Melvin Navas MD [address] [place] [id number] PCP - General Internal Medicine 12/13/21
--- OUTSIDE RECORDS SUMMARY | 2025-02-04 13:05 | XMS_ITS | Patient Health Record ---
Author Organization [facility] Address [address] [place] [address] Care Team Providers Care Culinary Artist Name Role Phone Melivn Navas Primary Care Provider [phone] McNhung Mckeon Unavailable [phone] Migration, Provider Unavailable Unavailable Allergies Allergen (clinical drug ingredient) Drug/Non Drug Allergy documented on EMR Reaction Allergy Type Onset Date Status Latex LATEX (uncoded) Unknown Allergy Acti ve oseltamivir Tamiflu dizziness Drug Allergy Activ e Penicillin Unknown Drug Allergy Active Results Component Value Reference Range Notes HEMOGLOBIN A1c (496) Reviewed date:08/20/2024 10:11:43 AM Interpretation: Performing Lab:[facility], [facility] [id number] [facility] Kirk Morgan Notes/Report: NON-FASTING; NON-FASTING; NON-FASTING FASTING:NO FASTING: NO HEMOGLOBIN A1c 5.6 <5.7 % of total Hgb For the purpose of screening for the presence of diabetes: <5.7% Consistent with the absence of diabetes 5.7-6.4% Consistent with increased risk for diabetes (prediabetes) > or =6.5% Consistent with diabetes This assay result is consistent with a decreased risk of diabetes. Currently, no consensus exists regarding use of hemoglobin A1c for diagnosis of diabetes in children. According to [place] [employer] (ADA) guidelines, hemoglobin A1c <7.0% represents optimal control in non- diabetic patients. Different metrics may apply to specific patient populations. Standards of Medical Care in Diabetes(ADA). COMPREHENSIVE METABOLIC PANE L (75532) Reviewed date:08/20/2024 10:11:42 AM Interpretation: Performing Lab:[facility], [facility] [id number] [facility]tjcQS[address] Kirk Morgan Notes/Report: NON-FASTING; NON-FASTING; NON-FASTING FASTING:NO FASTING: NO GLUCOSE 104 65-139 mg/dL Non-fasting reference interval UREA NITROGEN (BUN) 38 7-25 mg/dL CREATININE 2.19 0.70-1.22 mg/dL EGFR 29 > OR = 60 mL/min/1.73m2 BUN/CREATININE RATIO 17 6-22 (calc) SODIUM 144 135-146 mmol/L POTASSIUM 5.0 3.5-5.3 mmol/L CHLORIDE 108 98-110 mmol/L CARBON DIOXIDE 27 20-32 mmol/L CALCIUM 9.2 8.6-10.3 mg/dL PROTEIN, TOTAL 6.1 6.1-8.1 g/dL ALBUMIN 4.3 3.6-5.1 g/dL GLOBULIN 1.8 1.9-3.7 g/dL (calc) ALBUMIN/GLOBULIN RATIO 2.4 1.0-2.5 (calc) BILIRUBIN, TOTAL 0.3 0.2-1.2 mg/dL ALKALINE PHOSPHATASE 48 35-144 U/L AST 14 10-35 U/L ALT 8 9-46 U/L LIPID PANEL, STANDARD (7600) Reviewed date:08/20/2024 10:11:42 AM Interpretation: Performing Lab:[facility] [id number] [facility]GapvDT[address] Kirk Morgan Notes/Report: NON-FASTING; NON-FASTING; NON-FASTING FASTING:NO FASTING: NO CHOLESTEROL, TOTAL 97 <200 mg/dL HDL CHOLESTEROL 42 > OR = 40 mg/dL TRIGLYCERIDES 56 <150 mg/dL LDL-CHOLESTEROL 41 Reference range: <100 Desirable range <100 mg/dL for primary prevention; <70 mg/dL for patients with CHD or diabetic patients with > or = 2 CHD risk factors. LDL-C is now calculated using the Karrie calculation, which is a validated novel method providing better accuracy than the Friedewald equation in the estimation of LDL-C. Jayro ZEE et al. KEITH. 2013;310(32): 2569-6857 (http://education.Checkd.In/faq/CRE848) CHOL/HDLC RATIO 2.3 <5.0 (calc) NON HDL CHOLESTEROL 55 <130 mg/dL (calc) For patients with diabetes plus 1 major ASCVD risk factor, treating to a non-HDL-C goal of <100 mg/dL (LDL-C of <70 mg/dL) is considered a therapeutic option. Microalbumin (In-House) Reviewed date:11/25/2024 08:40:09 PM Interpretation:Abnormal Performing Lab: Notes/Report: Abnormal ALB 150mg CRE 300mg A:C 30-300mg Rapid Covid/Flu A-B Combo Reviewed date:04/13/2024 02:16:34 PM Interpretation: Performing Lab: Notes/Report: Rapid Covid pos Flu A neg Flu B neg Medications Medication SIG (Take, Route, Frequency, Duration) Notes Start Date End Date Status HYDROcodone-Acetaminop hen 5-325 MG 1 tab(s) orally every 8 hours; Duration: 30 days 01/22/2025 Active Crestor 5 MG 1 tab(s) orally once a day; Duration: 90 days Active DULoxetine HCl 60 MG 1 cap(s) orally once a day; Duration: 30 days Active Lisinopril 10 MG 1 tab(s) orally once a day; Duration: 90 days Active GLUCOMETER NA USE FOR TWICE A DAY FSBS TESTING NA TWICE DAILY; Duration: 30 DAYS *Please review for potential replacement for e-prescription and drug interaction check* 11/22/2022 Active Ipratropium-Albuterol 0.5-2.5 (3) MG/3ML INHALE THE [...] ONE TIME DAILY; Duration: 90 days Active Advair Diskus 250 MCG-50 MCG 1 PUFF(S) INHALED 2 TIMES A DAY; Duration: 90 DAYS *Please review and pick correct strength-formulat ion from [employer] options. If intended option is not shown, discontinue and re-order from Quick Search* Active Verapamil HCl ER 240 MG 1 cap(s) orally once a day; Duration: 90 days Active metFORMIN HCl 1000 MG 1/2 tablet orally 2 times a day; Duration: 90 days Active MiraLax - 17 G ORALLY ONCE A DAY PRN; Duration: 90 DAYS *Please review and pick correct strength-formulat ion from [employer] options. If intended option is not shown, discontinue and re-order from Quick Search* Active busPIRone HCl 15 MG 1 tab(s) orally 2 times a day; Duration: 90 days 06/05/2024 Active Ferrous Sulfate 325 (65 Fe) MG 1 tab(s) orally once a day; Duration: 30 days Active Gabapentin 100 MG 1 pill orally [...] e-prescription and drug interaction check* 03/21/2022 Active Calcium 600 + D 600 MG-200 UNITS 1 TAB(S) ORALLY BID *Please review and pick correct strength-formulat ion from [employer] options. If intended option is not shown, discontinue and re-order from Quick Search* Active Aspirin Low Dose 81 MG TAKE 1 TABLET ODIN DAY; Duration: 90 Active OXYGEN 2 LITERS DIRECTED DAILY *Please review for potential replacement for e-prescription and drug interaction check* 08/09/2020 Active Immunizations Vaccine Route Administration Date Status Comme nts Prevnar PCV-20 (Pneumococcal conjugate 20) IM Intramuscular 02/06/2022 Administered Prevnar PCV-13 (Pneumococcal conjugate 13) IM Intramuscular 07/05/2015 Administered Pneumovax 23 Unknown 11/17/[address] Influenza (Fluzone)--Medicare only IM Intramuscular 05/16/2015 Administered Influenza (Fluzone)--Medicare only IM Intramuscular 04/27/2016 Administered Fluzone High Dose IM Intramuscular 05/09/2017 Administered Fluzone High Dose IM Intramuscular 05/06/2018 Administered Fluzone High Dose IM Intramuscular 05/12/2019 Administered Fluzone High Dose IM Intramuscular 05/10/2020 Administered Fluzone High Dose IM Intramuscular 05/23/2021 Administered Fluzone High Dose IM Intramuscular 05/08/2022 Administered Fluzone High Dose IM Intramuscular 05/21/2023 Administered Fluzone High Dose IM Intramuscular 05/12/2024 Administered Fluvirin--Influenza vaccine 3+ year IM Intramuscular 05/06/2013 Administered Fluvirin--Influenza vaccine 3+ year IM Intramuscular 05/07/2014 Administered Adacel (Tdap) Unknown 10/04/2015 Administered Problems Problem Type SNOMED Code ICD Code Onset Dates Problem Status W/U Status Risk Notes Problem Iron deficiency anemia (86085951) Iron deficiency anemia, unspecified (D50.9) Active confirmed Problem Diabetic renal disease (154778600) Type 2 diabetes mellitus with diabetic chronic kidney disease (E11.22) Active confirmed Problem Type 2 diabetes mellitus with other specified complication (E11.69) Active confirmed Problem Generalized anxiety disorder (79781910) Generalized anxiety disorder (F41.1) Active confirmed Problem Bullous pemphigoid (06240647) Bullous pemphigoid (L12.0) Active confirmed Problem Urinary retention (756304797) Urinary retention (R33.9) Active confirmed Problem Chronic obstructive pulmonary disease (97420290) 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) Active confirmed Problem Ischemic stroke (741462736) Ischemic stroke (I63.50) Active confirmed Problem Essential hypertension (94991737) Essential hypertension (I10) Active confirmed Problem Tubular adenoma of colon (972440607) Tubular adenoma of colon (D12.6) Active confirmed Problem Hyperlipidemia (86650544) Hyperlipidemia, unspecified (E78.5) Active confirmed Problem Gastroesophageal reflux disease with esophagitis (disorder) (543648470) GERD with esophagitis (K21.0) Active confirmed Problem Osteoarthritis of knee (521155477) Primary osteoarthritis of both knees (M17.0) Active confirmed Problem Generalized anxiety disorder (34635606) Anxiety, generalized (F41.1) Active confirmed Problem Obstructive sleep apnea (34192190) Obstructive sleep apnea (G47.33) Active confirmed Problem Obese class II (719473736353678) BMI 36.0-36.9,adult (Z68.36) Active confirmed Problem Diabetic peripheral neuropathy (450880833) Diabetic peripheral neuropathy (E11.42) Active confirmed Problem Lumbosacral spondylosis without myelopathy (09738569) Spondylosis of lumbar region without myelopathy or radiculopathy (M47.816) Active confirmed Problem Chronic diastolic heart failure (435453860) Chronic diastolic congestive heart failure (I50.32) Active confirmed Problem Chronic kidney disease stage 3 (disorder) (297640688) Chronic kidney disease, stage III (moderate) (N18.3) Active confirmed Problem 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 (711177457820122) Atherosclerotic heart disease (I25.10) Active confirmed Problem History of DVT (deep vein thrombosis) (813925357) History of DVT (deep vein thrombosis) (Z86.718) Active confirmed Problem Anemia of chronic disease (209780634) Anemia, chronic disease (D63.8) Active confirmed Problem Chronic kidney disease stage 3B (disorder) (120440707) Stage 3b chronic kidney disease (CKD) (N18.32) Active confirmed Vital Signs Heart Rate 72 /min 01/28/2025 Temperature 98 degrees Fahrenheit 01/28/2025 Blood pressure diastolic 82 mm Hg 01/28/2025 Height 6 ft 0 in in 01/28/2025 Blood pressure systolic 145 mm Hg 01/28/2025 Weight 215 lbs 01/28/2025 BMI 29.16 kg/m2 01/28/2025 Encounters Encounter Location Date Provider Diagnosis [facility] [address] [place] [address] 11/07/2024 Provider Migration Anxiety, generalized F41.1 and Spondylosis of lumbar region without myelopathy or radiculopathy M47.816 [facility] [address] [address] 02/27/2024 Melvin Navas Type 2 diabetes mellitus with other specified complication E11.69 and Spondylosis of lumbar region without myelopathy or radiculopathy M47.816 [facility] [address] [address] 04/13/2024 Nhung McNees Subacute cough R05.2 and COVID-19 U07.[address] [place] [address] [address] 05/12/2024 Melvin Vázquezelena Spondylosis of lumba r region without myelopathy or radiculopathy M47.816 ; Chronic diastolic congestive heart failure I50.32 ; Routine medical exam Z00.00 and Immunization(s) administered Z23 [facility] [address] [address] 08/18/2024 Melvin Kathieelena Primary osteoarthrit is of both knees M17.0 ; Chronic diastolic congestive heart failure I50.32 ; Essential hypertension I10 ; Type 2 diabetes mellitus without complications E11.9 ; Anxiety, generalized F41.1 ; Diabetic peripheral neuropathy E11.42 and Routine medical exam Z00.00 [facility] [address] [address] 11/24/2024 Melvin Navas Type 2 diabetes mellitus with diabetic chronic kidney disease E11.22 ; Bullous pemphigoid L12.0 and Spondylosis of lumbar region without myelopathy or radiculopathy M47.816 [facility] [address] [address] 01/28/2025 Melvin Navas Spondylosis of lumba r region without myelopathy or radiculopathy M47.816 ; Essential hypertension I10 ; Chronic diastolic congestive heart failure I50.32 ; Type 2 diabetes mellitus with diabetic chronic kidney disease E11.22 ; Stage 3b chronic kidney disease (CKD) N18.32 and Primary osteoarthritis of both knees M17.0 [facility] [address] [address] 02/17/2024 Melvin Navas [facility] [address] [place] [address] 02/19/2024 Melvin Vázquezson [facility] [address] [place] [address] 03/02/2024 Melvin Besson [facility] [address] [place] [address] 03/26/2024 Melvin Besson Spondylosis of lumba r region without myelopathy or radiculopathy M47.816 [facility] [address] [place] [address] 04/27/2024 Melvin Besson Spondylosis of lumba r region without myelopathy or radiculopathy M47.816 [facility] [address] [place] [address] 04/27/2024 Melvin Besson [facility] [address] [place] [address] 05/28/2024 Melvin Besson Spondylosis of lumba r region without myelopathy or radiculopathy M47.816 [facility] [address] [place] [address] 06/04/2024 Melvin Besson [facility] [address] [place] [address] 06/26/2024 Melvin Besson Spondylosis of lumba r region without myelopathy or radiculopathy M47.816 [facility] [address] [place] [address] 07/27/2024 Melvin Besson Spondylosis of lumba r region without myelopathy or radiculopathy M47.816 [facility] [address] [place] [address] 08/24/2024 Melvin Besson Spondylosis of lumba r region without myelopathy or radiculopathy M47.816 [facility] [address] [place] [address] 09/25/2024 Melvin Besson Spondylosis of lumba r region without myelopathy or radiculopathy M47.816 [facility] [address] [place] [address] 10/22/2024 Melvin Besson Spondylosis of lumba r region without myelopathy or radiculopathy M47.816 [facility] [address] [address] 11/23/2024 Melvin Besson Spondylosis of lumba r region without myelopathy or radiculopathy M47.816 [facility] [address] [address] 12/11/2024 Melvin Navas [facility] [address] 12/21/2024 Melvin Navas Spondylosis of lumba r region without myelopathy or radiculopathy M47.[address] [address] 01/04/2025 Melvin Navas Anxiety, generalized F41.1 [facility] [address] [address] 01/22/2025 Melvin Navas Spondylosis of lumba r region without myelopathy or radiculopathy M47.816 Assessments Encounter Date Diagnosis (ICD Code) Assessment Notes Treatment Notes Treatment Clinical Notes Section Notes 02/27/2024 Type 2 diabetes mellitus with other specified complication (ICD-10 - E11.69) Stable on recent labs.... no changes in plan... 02/27/2024 Spondylosis of lumbar region without myelopathy or radiculopathy (ICD-10 - M47.816) Pain seems stable... no changes at this time... 03/26/2024 Spondylosis of lumbar region without myelopathy or radiculopathy (ICD-10 - M47.816) 04/13/2024 COVID-19 (ICD-10 - U07.1) Discussed importance of pulmonary toilet and hydration. OTC medications for symptom management reviewed. Discussed reasons to seek care in clinic or ED (worsening cough, shortness of breath, high fever not responding to treatment, inability to tolerate typical PO intake). Also recommended self-quarantine at home per CDC guidelines. 04/13/2024 Subacute cough (ICD-10 - R05.2) 05/12/2024 Spondylosis of lumbar region without myelopathy or radiculopathy (ICD-10 - M47.816) Patient has significant pain issues, but has lots of emotional overlay and I do not think increasing narcotics is a good idea at this situation. Has had previous issues with syncopal episodes. Will trial duloxetine given patient's clear evidence of emotional overlay and component to his pain issues 05/12/2024 Chronic diastolic congestive heart failure (ICD-10 - I50.32) Seems euvolemic. No changes in plan. Blood pressure under good control. 05/28/2024 Spondylosis of lumbar region without myelopathy or radiculopathy (ICD-10 - M47.816) 06/26/2024 Spondylosis of lumbar region without myelopathy or radiculopathy (ICD-10 - M47.816) 07/27/2024 Spondylosis of lumbar region without myelopathy or radiculopathy (ICD-10 - M47.816) 08/18/2024 Chronic diastolic congestive heart failure (ICD-10 - I50.32) Compensated on exam. No changes in plan. 08/24/2024 Spondylosis of lumbar region without myelopathy or radiculopathy (ICD-10 - M47.816) 09/25/2024 Spondylosis of lumbar region without myelopathy or radiculopathy (ICD-10 - M47.816) 10/22/2024 Spondylosis of lumbar region without myelopathy or radiculopathy (ICD-10 - M47.816) 11/07/2024 Anxiety, generalized (ICD-10 - F41.1) 11/07/2024 Spondylosis of lumbar region without myelopathy or radiculopathy (ICD-10 - M47.816) 11/23/2024 Spondylosis of lumbar region without myelopathy or radiculopathy (ICD-10 - M47.816) 11/24/2024 Type 2 diabetes mellitus with diabetic chronic kidney disease (ICD-10 - E11.22) Microalbumin reviewed. Stable. Given patient's weight loss and medical fragility would not start new medication at this point. 11/24/2024 Bullous pemphigoid (ICD-10 - L12.0) Cautious trial of prednisone. Mupirocin for the surface blisters. Discussed not rupturing the blisters. Discussed criteria to follow back up 08/18/2024 Primary osteoarthritis of both knees (ICD-10 - M17.0) Chronic, stable. Continue hydrocodone and increase duloxetine 60 mg daily. 12/21/2024 Spondylosis of lumbar region without myelopathy or radiculopathy (ICD-10 - M47.816) 01/22/2025 Spondylosis of lumbar region without myelopathy or radiculopathy (ICD-10 - M47.816) 01/28/2025 Essential hypertension (ICD-10 - I10) Blood pressure is doing well, no change in plans 01/28/2025 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 Tolerating pain medicine well. No dose decrease or increase at this point. Has asked for dose increase as before but I declined given his history of syncope and falls when he was on higher dosage in the past. He has done well with this current dosage. 01/04/2025 Anxiety, generalized (ICD-10 - F41.1) 04/27/2024 Spondylosis of lumbar region without myelopathy or radiculopathy (ICD-10 - M47.816) 01/28/2025 Chronic diastolic congestive heart failure (ICD-10 - I50.32) Clinically euvolemic. Will get labs in 2 months. 08/18/2024 Essential hypertension (ICD-10 - I10) Chronic, controlled. Continue current regimen. 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 meds. No concerns on my part about diversion or misuse. Labs and Sina reports reviewed and are appropriate. 05/12/2024 Routine medical exam (ICD-10 - Z00.00) In regards to [employer] wellness issues, patient has fairly good functional issues, drives, walks with a walker, but no recent falls. Depression issues as noted above. Up-to-date with vaccines. Out of range of colon screening. Cognitive impairment not noted. 05/12/2024 Immunization(s) administered (ICD-10 - Z23) 08/18/2024 Type 2 diabetes mellitus without complications (ICD-10 - E11.9) Chronic, controlled. A1c 5.7% (08/2023). Continue metformin. Repeat A1c pending. Personally review. Will bring urine sample at f/u for urine microalbumin, self caths at home. 01/28/2025 Type 2 diabetes mellitus with diabetic chronic kidney disease (ICD-10 - E11.22) A1c is under good control, no change in plans 01/28/2025 Stage 3b chronic kidney disease (CKD) (ICD-10 - N18.32) Creatinine stable, continue to avoid NSAIDs. Continue current therapy for pain 08/18/2024 Anxiety, generalized (ICD-10 - F41.1) Chronic, improved. Increase duloxetine per above and continue buspirone. 08/18/2024 Diabetic peripheral neuropathy (ICD-10 - E11.42) Chronic, stable. Continue gabapentin and duloxetine. 01/28/2025 Primary osteoarthritis of both knees (ICD-10 - M17.0) Patient had a history of doing well with shots from previous [facility] orthopedist in his hip and knee. Wishes to be reevaluated for this. I think this is reasonable and we will make referral 08/18/2024 Routine medical exam (ICD-10 - Z00.00) Good functional status. Walks with a walker, but no recent falls. Up-to-date with vaccines. Out of range of cancer screenings. Cognitive impairment not noted. Plan Of Treatment Pending Test Test Name Order Date N-CMP 07/22/2013 N-HbA1C 07/22/2013 Physical Therapy 05/04/2013 C-CMP 08/09/2020 C-LIPID PANEL 08/09/2020 M-Vitamin B12 08/15/2021 Future Test Test Name Order Date M-Basic Metabolic Panel 06/08/2019 Next Appt Details Provider Name:Melvin Navas, 03/23/2025 11:00:00 AM, [address], [address], Insurance Providers Payer Name Payer Address Payer Phone Subscriber Number Group Number Insured Name Patient Relationship to Insured Coverage Start Date Coverage End Date [facility] MEDICARE DUAL [address] [address] [place] [address] [id number] Wander Sahu Self - patient is the insured Medications Administered Medication Instructions Date of Administration Dosage Notes Ceftriaxone 500 10/25/2014 250 Dexamethasone 4mg Injection 10/23/2023 4 mg Triamcinolone Acetonide 40mg Injection 08/25/2019 1 mL Triamcinolone Acetonide 40mg Injection 09/22/2019 1 mL Kenalog 11/10/2013 1 mL Kenalog 07/16/2014 1 mL Kenalog 10/26/2014 1 Medical (General) History Medical History History ICD Code CVA-1983 niddm x 4 yrs hyperlipidemia CAD, CHF, NO UT, Pacemaker COPD stopped smoking, 1979 diabetic peripheral neuropathy - on opia te tx.. appropriate UDS 10/23 DVT left lower leg, 2005 hypertension chronic pain, legs hearing loss right ear ?? etiology BPH DDD, L4-5 surgery multiple colon pylops, colonoscopy about every 3 years, Dr. Beal Surgical History Surgery Date(Month/Year) back x3 rectal left ankle pacemaker skin cancers removed Hospitalization History Reason Date(Month/Year) [facility]- UTI, anemia 05/02- hand, foot, mouth; [facility] 04/2017 above
== END 2025-02-04 23:59 | disposition home or self-care (01) ==
LOC: RAD 13:03
PROVIDERS: PCP Internal Medicine Adolescent Medicine; Visit Provider Physician Assistant Surgical
DX: M25.561 Pain in right knee (principal); M25.551 Pain in right hip; M25.562 Pain in left knee
CPT/HCPCS: 73502; 73562

== ENCOUNTER 2025-03-24 08:41 | Outpatient (RCR) | payer MEDICARE, MEDICAID, SELFPAY ==
--- NOTE | 2025-03-24 10:57 | HMH.PTOPEV ---
PT Outpatient Evaluation Rehab PT Outpatient Evaluation Start: 03/24/25 08:49 Freq: Status: Active Protocol: Document 03/24/25 08:49 SMITH (Rec: 03/24/25 10:55 SMITH [id number]) E-signed By Bettye Sanchez, PT Outpatient Therapy Subjective History Subjective History Pt is a 84 y/o male who presents to the initial PT evaluation with complaint of R hip pain. Pt reports insidious onset of R posterior hip pain 5 months ago with worsening to a constant state over the past 2 months. Pt reports current symptoms of constant sharp pain from the right posterior hip to his knee. Pt reports pain is aggravated by standing, walking, traversing an incline ramp/1 step to enter his home, lifting, twisting and donning his socks. Pt reports putting weight on the RLE worsens symptoms and leaning towards the right side in sitting and leaning forward on a counter seems to ease pain at times. Pt reports he did fall 2 weeks ago due to a stabbing pain in his right hip causing his leg to give out, denies further pain or injury from the fall. Pt reports 4 falls this year without injury. Pt states he does use a quad cane for ambulation at baseline due to balance deficits. Pt states he feels off balance when he gets up too quick, denies dizziness. Pt had a right hip xray on 02/04/25 with findings & impression of Mild degenerative changes of hip joints. Moderate to severe degenerative disc disease within lower lumbar spine. No fracture. If hip pain persists, consider MRI to exclude occult fracture/internal derangement. Pt reports history of back surgeries in 1992 & 1994 for a disc rupture. Pt reports he returns to his orthopedic doctor tomorrow for his next visit. Medical History: Lymphadenopathy, Mass of left side of neck, History of stroke, Osteoarthritis, History of cataract, Atrial fibrillation, Skin cancer, Iron deficiency anemia, Chronic kidney disease, CHF ( congestive heart failure), Anxiety, Urinary incontinence, GERD (gastroesophageal reflux disease), Atherosclerosis, Osteoporosis, Chronic pain syndrome, Arthritis, Diabetes mellitus, type 2, Hypertension, Hernia, PACEMAKER, Obstructive sleep apnea, COPD ( chronic obstructive pulmonary disease) Vitals at rest: 96% Spo2 on RA, 78 HR New diagnosis of Yes: skin cancer cancer in past 12 months? Chief Complaint Pain,Gives out/Unstable Symptom Type Sharp,Stabbing Symptoms Relieved By Rest/Positioning,Heat Current Functional Lifting,Housework,Standing,Sitting,Walking,Stairs, Limitations Balance Symptom Description Constant but Variable Level of pain today 7 (0-10) Pain scale - at its 5 best (0-10) Pain scale - at its 8 worst (0-10) Lumbopelvic Eval Posture Lumbar Spine Posture Flexed Standing Position Assistive device Assistive Devices Straight Cane Gait Observation General Gait Pattern Decrease Weight Bear (R) Observation Palapation tenderness bilateral lumbar spinal Yes tenderness buttock tenderness Yes: R piriformis, glute med/min Lumbar/Sacral Tenderness Palpation Findings Lumbar/Sacral 3/4 TTP Palpation Overall Comment Accessory Movement L-spine Vertebrae Central P/A [place] Accessory Movements that Elicit Symptoms L4 bilateral L5 bilateral S1 bilateral Range of Motion Lumbar Spine Active 40 Flexion Range of Motion (degrees) Lumbar Spine Active 0 Extension Range of Motion (degrees) Left Lumbar Spine 5 Lateral Flexion Active Range of Motion (degrees) Right Lumbar Spine 5 (p!) Lateral Flexion Active Range of Motion (degrees) Manual Muscle Test Bilateral Knee Extension 4- Good- Strength Grade Knee Flexion 4 Good Strength Grade Hip Flexion Strength 4- Good- Grade Hip Abduction 4- Good- Strength Grade Hip Adduction 4- Good- Strength Grade Hip Extension 3 Fair Strength Grade Ankle Dorsiflexion 4+ Good+ Strength Grade DTR Rt Patellar 2+ Lt Patellar 2+ Altered Sensation Bilateral Comment equal and intact to light touch sensation bilaterally Special Tests Hip Scouring ( Positive Right Quadrant) Test Unilateral Straight Positive Right Leg Raise (Lasegue) Test Hip/Knee Eval ROM right Hip Flexion w/Knee 90 p! Flexed Active Range of Motion (degrees) Hip External 35 p! Rotation Active Range of Motion ( degrees) Hip Internal 30 p! Rotation Active Range of Motion ( degrees) Oswestry Index Section 1 Pain Intensity The pain is severe and does not vary much Section 2 Personal Care ( my way of washing or dressing even though it causes Washing,Dresing) some pain Section 3 Lifting Pain prevents me from lifting weights off the floor Section 4 Walking I cannot walk more than one mile wihtout increasing pain Section 5 Sitting I can sit in any chair for as long as I like Section 6 Standing I cannot stand more than 1 hour without increasing pain Section 7 Sleeping Because of my pain, my normal night's sleep is less than 6 hours sleep Section 8 Social Life Pain has restricted my social life and I do not go out often Section 9 Traveling Pain restricts me to short necessary journeys under 30 minutes Section 10 Changing Degreee of My pain is gradually getting worse Pain Score and Risk Level Oswestry Sc 25 Oswestry Risk Level Severe Disability Miscellaneous Dx PT Eval Objective Objective Special tests: + slump test RLE Resting posture 10 degrees of flexion *lateral shift towards the right improved symptoms Outpatient Therapy Assessment Impairments Problems/ Palpation Tenderness,Impaired Range of Motion,Impaired Impairmments Strength,Impaired Gait Pattern,Impaired Walking, Impaired Standing,Impaired Lifting,Impaired Household Care,Impaired Stair Climbing,Impaired Incline Stepping, Impaired Stepping on Uneven Surface,Impaired Balance, Subjective C/O Pain,Impaired Self Care/Self Management Prognosis Rehab Potential Good Clinical Impression Consistent with Yes Diagnosis Additional details: s/s most consistent with low back pain with radiating pain and right hip pain concurrently PT Patient Goals PT Patient Goals PT Short Term 3 weeks: Patient Goals 1. Pt to verbalize compliance with HEP to assist with progress. 2. Improve lumbar AROM flex to at least 50 to assist with mobility/function. 3. Improve pain at worst to 6/10 to improve overall QOL /function. 4. Improve CHASE score to 20 or less to improve overall QOL/function. PT Intermediate Patient 6 weeks: Goals 1. Improve tenderness to palpation of the R gluteal mm to 0-1/4 to assist with pain/function. 2. Improve lumbar AROM flex to at least 60-70, ext to 5 -10 to improve mobility/function. 3. Improve BLE MMT to 4-4+/5 grossly to assist with function. 4. Improve pain at worst to 4/10 to improve overall QOL /function. 5. Improve CHASE score to 15 or less to improve overall QOL/function. 6. traverse ramp/1 step with pain 4/10 or less to assist with safe household navigation. 7. Demonstrate proper gait mechanics with SPC to decrease fall risk. Outpatient Therapy Plan of Care Treatment Plan May Include Therapeutic Exercise Yes Including Home Exercise Program Manual Therapy Yes Techniques Neuromuscular Re- Yes education Therapeutic Yes Activities to Return to Previous Functional/Work Level ADL/Self Care Yes Education Mechanical Traction Yes Dry Needling Yes Thermal Modalities Yes Ultrasound/ Yes Phonophoresis Iontophoresis Yes Massage Yes Group Therapy for Yes Medicare Eval/Re-Eval Yes Frequency Times per week 2 Duration Number of Weeks 4-6 Addendums This patient is a No candidate for social or vocational rehab ? Patient/Guardian Yes verbally acknowledges understanding of treatment program and consents to further treatment? Patient/Guardian Yes verbally acknowledges understanding of diagnosis, prognosis and goals for treatment? Eval Complexity PT Charges 49590 - Moderate Complexity Shoulder/Elbow Eval Shoulder Objective Measurements Elbow Objective Measurements PHYSICIAN CERTIFICATION: I certify the specified therapy services for Wander Sahu are required, authorized, and reviewed every 30 days.
== END 2025-03-24 23:59 | disposition home or self-care (01) ==
LOC: PT 08:41
PROVIDERS: Visit Provider Physician Assistant
DX: M25.551 Pain in right hip (principal)
CPT/HCPCS: 97110; 97162

== ENCOUNTER 2025-06-15 09:48 | Day surgery (SDC) | payer MEDICARE, MEDICAID, SELFPAY ==
[2025-06-15 10:00] VITALS: BP 168/72; PULSE 70; RESP 16; O2SAT 96; BMI 29.5
[2025-06-15 10:02] VITALS: BP 164/74; PULSE 70; RESP 18; O2SAT 96
[2025-06-15] MEDS: BUPIVACAINE 0.25% 10ML INJ 25 MG IJ (10:04)
[2025-06-15] MEDS: LIDOCAINE 1% 5ML PF VIAL 5 ML (10:04)
--- NOTE | 2025-06-15 10:08 | P.PCN_ITS ---
Procedure Date: 06/15/25 Time: 09:55 Anesthesiologist:: Niranjan Vega CRNA Complications:: None Pre-procedure Diagnosis:: Right sacroiliitis Post-procedure Diagnosis:: Same Indications for Procedure:: Patient is a very pleasant 84-year-old male who comes to clinic today for right sacroiliac joint injection of local anesthetic for diagnostic purpose. Patient describes right low lumbar back pain. Right posterior hip pain. Difficulty transitioning from sitting to standing. Difficulty with ambulation due to the right posterior hip pain. He rates his pain 7/10. Procedure Details:: Procedure: Right sacroliliac joint injection under fluoroscopy Informed consent was obtained and the risk and benefits of the procedure were explained to the patient.~ The patient was taken to the procedure room and noninvasive monitors were placed including noninvasive blood pressure cuff and pulse oximeter.~ The patient was placed prone on the procedure table.~ The~ right hip was cleansed using Betadine as a cleansing solution.~ C-arm fluoro socpy was used to view the right SI joint.~ The skin and subcutaneous tissues were anesthetized using Lidocaine 1.5% and a 25-gauge needle.~ After this, a 22- gauge spinal needle was inserted under fluoroscopic guidance into the inferior aspect of the right SI joint.~ Omnipaque dye was injected and a good spread was seen throughout the joint.~ After this, approximately 5 mL of bupivacaine 0.25% was incrementally injected into the sacroiliac joint.~ The patient tolerated the procedure well with no complications.~ The patient was observed in the Pain Clinic, then discharged home neurologically intact.~ Plan and Disposition:: Patient was discharged without incident.
[2025-06-15 10:10] VITALS: BP 160/76; PULSE 62; RESP 18; O2SAT 100
[2025-06-15 10:13] VITALS: BP 164/60; PULSE 74; RESP 18; O2SAT 96
== END 2025-06-15 10:10 | disposition home or self-care (01) ==
PROVIDERS: PCP Internal Medicine Adolescent Medicine; Visit Provider Nurse Anesthetist, Certified Registered
DX: M46.1 Sacroiliitis, not elsewhere classified (principal); E11.22 Type 2 diabetes mellitus with diabetic chronic kidney disease; I48.91 Unspecified atrial fibrillation; I13.0 Hypertensive heart and chronic kidney disease with heart failure and stage 1 through stage 4 chronic kidney disease, or unspecified chronic kidney disease; I50.9 Heart failure, unspecified; K21.9 Gastro-esophageal reflux disease without esophagitis; J44.9 Chronic obstructive pulmonary disease, unspecified; F41.9 Anxiety disorder, unspecified; I70.90 Unspecified atherosclerosis; N18.9 Chronic kidney disease, unspecified; Z86.73 Personal history of transient ischemic attack (TIA), and cerebral infarction without residual deficits; Z95.0 Presence of cardiac pacemaker; Z85.828 Personal history of other malignant neoplasm of skin; Z98.890 Other specified postprocedural states; Z88.0 Allergy status to penicillin; Z88.3 Allergy status to other anti-infective agents; Z91.040 Latex allergy status; Z79.01 Long term (current) use of anticoagulants; Z79.51 Long term (current) use of inhaled steroids; Z79.82 Long term (current) use of aspirin; Z79.899 Other long term (current) drug therapy
CPT/HCPCS: G0260; J0665; J2003